=== PATIENT | female | born 1930 | race Caucasian/White ===

== ENCOUNTER 2017-06-23 19:41 | Emergency (ER) | payer OTHER ==
[2017-06-23 20:20] VITALS: TEMP 97.7; BMI 37.5
[2017-06-23] MEDS ORDERED: ONDANSETRON 4 MG/2 ML VIAL IVPUSH ONE ×2 (20:23→22:24)
[2017-06-23] MEDS ORDERED: SODIUM CHLORIDE 0.9% 1000 ML INFUS.BAG IV ONE (20:23)
[2017-06-23] MEDS ORDERED: FAMOTIDINE IV 20 MG/12 ML VIAL IVPUSH ONE (20:25)
[2017-06-23] MEDS ORDERED: ONDANSETRON 4 MG/2 ML VIAL ONE (20:29)
[2017-06-23] MEDS ORDERED: FAMOTIDINE 20 MG/50 ML IVPB 20 MG/50 ML MG IVPB ONE (20:29)
[2017-06-23 21:07] LABS: BASO # 0.1 # (0.1-1); BASO % 0.3 % (0-2.0); EOS # 0.1 # (0-4.5); EOS % 0.5 % (0-4.5); LYMPH # 0.8 (8-40); MCH 30.8 pg (25.7-33.7); MCHC 32.5 g/dl (32.0-36.0); MEAN PLT VOLUME 7.9 fl (7.5-11.1); MONO # 0.8 # (3.8-10.2); NEUT # 15.9 # (42.8-82.8); NEUT % 90.1 % (42.8-82.8); PLATELET COUNT 294 K/MM3 (134-434); RDW 15.4 % (11.6-15.6); WHITE BLOOD COUNT 17.7 K/mm3 (4.0-10.0)
[2017-06-23] MEDS ORDERED: METOCLOPRAMIDE HCL INJECTION 10 MG/2 ML VIAL ONE (21:24)
[2017-06-23 21:26] LABS: URINE APPEARANCE SLCLOUDY; URINE BILIRUBIN NEGATIVE (NEGATIVE); URINE BLOOD NEGATIVE (NEGATIVE); URINE COLOR YELLOW; URINE GLUCOSE (UA) NEGATIVE (NEGATIVE); URINE KETONE 1+ (NEGATIVE); URINE LEUK ESTERASE NEGATIVE (NEGATIVE); URINE NITRITE NEGATIVE (NEGATIVE); URINE UROBILINOGEN NEGATIVE mg/dL (0.2-1.0)
[2017-06-23 21:35] LABS: URINE PROTEIN 1+ (NEGATIVE)
[2017-06-23 21:36] LABS: URINE MUCUS RARE; URINE RBC 1 /hpf (0-3); URINE WBC 1 /hpf (3-5)
[2017-06-23 21:43] LABS: ALBUMIN 3.5 g/dl (3.4-5.0); ANION GAP 9 (8-16); CALCIUM 8.4 mg/dL (8.5-10.1); CO2 28 mmol/L (21-32); GLUCOSE,RANDOM 172 mg/dL (74-106); SGOT/AST 25 U/L (15-37); SGPT/ALT 23 U/L (12-78)
[2017-06-23 21:47] LABS: ALK PHOS 55 U/L (45-117); BILIRUBIN,TOTAL 0.7 mg/dL (0.2-1.0); CPK 47 IU/L (26-192); TOT PROT 7.4 g/dl (6.4-8.2); TROPONIN I 0.02 ng/ml (0.00-0.05)
[2017-06-23 21:48] LABS: TROPONIN I 0.02 ng/ml (0.00-0.05)
[2017-06-23] MEDS ORDERED: METOCLOPRAMIDE HCL INJECTION 10 MG/2 ML VIAL IVPUSH ONE (22:24)
--- NOTE | 2017-06-23 22:41 | PDOC ---
History of Present Illness - General Chief Complaint: Nausea/Vomiting Stated Complaint: Nausea/Vomiting Time Seen by Provider: 06/23/17 19:57 History Source: Patient Exam Limitations: No Limitations - History of Present Illness Initial Comments: 06/23/17 22:35 Patient is an 87-year-old female with history of lymphoma, HTN, HLD, A. fib on Coumadin, hysterectomy, here with complaints of nausea which started about 3 PM after eating. States she has had several episodes of vomiting all and continues to have nausea in the emergency room. States everybody in the household ate the same thing and no one else is sick. She denies chest pain, headache, dizziness, diarrhea. She states she's had issues with nausea in the past had an endoscopy for it with gastroenterologists which was negative. PMD: Dr. Lopez PMHX: as above PSocHx: neg etoh, drug, cig ALL: NKDA GENERAL/CONSTITUTIONAL: [No fever or chills. No weakness. No weight change.] HEAD, EYES, EARS, NOSE AND THROAT: [No change in vision. No ear pain or discharge. No sore throat.] CARDIOVASCULAR: [No chest pain (+) shortness of breath chronic.] RESPIRATORY: [No cough, wheezing, or hemoptysis.] GASTROINTESTINAL: [No nausea, vomiting, diarrhea or constipation. No rectal bleeding.] GENITOURINARY: [No dysuria, frequency, or change in urination.] MUSCULOSKELETAL: [No joint or muscle swelling or pain. No neck or back pain.] SKIN AND BREASTS: [No rash or easy bruising.] NEUROLOGIC: [No headache, vertigo, loss of consciousness, or loss of sensation.] PSYCHIATRIC: [No depression or anxiety.] ENDOCRINE: [No increased thirst. No abnormal weight change.] HEMATOLOGIC/LYMPHATIC: [No anemia, easy bleeding, or history of blood clots.] ALLERGIC/IMMUNOLOGIC: [No hives or skin allergy. No latex allergy.] GENERAL: [The patient is awake, alert, and fully oriented, in mild acute distress.] HEAD: [Normal with no signs of trauma.] EYES: [Pupils equal, round and reactive to light, extraocular movements intact, sclera anicteric, conjunctiva clear.] ENT: [Ears normal, nares patent, oropharynx clear without exudates. Moist mucous membranes.] NECK: [Normal range of motion, supple without lymphadenopathy, JVD, or masses.] LUNGS: [Breath sounds equal, clear to auscultation bilaterally. No wheezes, and no crackles.] HEART: [irreg rate and rhythm, S1 and S2 without murmur, rub.] ABDOMEN: [Soft, nontender, normoactive bowel sounds. No guarding, no rebound. No masses.] EXTREMITIES: [Normal range of motion, no edema. No clubbing or cyanosis. No cords, erythema, or tenderness.] NEUROLOGICAL: [Cranial nerves II through XII grossly intact. Normal speech, normal gait.] PSYCH: [Normal mood, normal affect.] SKIN: [Warm, Dry, normal turgor, no rashes or lesions noted.] Past History - Past Medical History Allergies/Adverse Reactions: Allergies Allergy/AdvReac Type Severity Reaction Status Date / Time No Known Allergies Allergy Verified 04/26/15 17:54 Home Medications: Ambulatory Orders Atorvastatin Ca [Lipitor] 10 mg PO HS 08/01/14 Diltiazem Cd [Cardizem Cd -] 240 mg PO DAILY 08/01/14 Escitalopram Oxalate [Lexapro -] 20 mg PO DAILY 08/01/14 Tamsulosin HCl [Flomax -] 0.4 mg PO DAILY 08/01/14 Furosemide [Lasix -] 20 mg PO DAILY #30 tablet 04/28/15 Rivaroxaban [Xarelto -] 20 mg PO DAILY #30 tablet 04/28/15 Albuterol Sulfate [Proair Respiclick] 90 mcg IH PRN 01/23/16 Digoxin [Lanoxin -] 0.125 mg PO DAILY 01/23/16 Esomeprazole Magnesium [Nexium 24Hr] 40 mg PO DAILY 01/23/16 Saxagliptin HCl [Onglyza] 5 mg PO DAILY 01/23/16 Tiotropium [place] [Spiriva Respimat] 2.5 gm IH DAILY 01/23/16 Tramadol HCl [Ultram -] 50 mg PO DAILY 01/23/16 Ondansetron HCl [Zofran] 4 mg PO QID #10 tablet 06/24/17 Anemia: Yes Asthma: Yes Cancer: Yes (LYMPHOMA) Cardiac Disorders: Yes (ATRIAL FIBRILLATION) CVA: No COPD: Yes CHF: No Dementia: No Diabetes: No GI Disorders: Yes (COLONOSCOPY) Disorders: No HTN: Yes Hypercholesterolemia: Yes Liver Disease: No Seizures: No Thyroid Disease: No - Surgical History Abdominal Surgery: No Appendectomy: No Cardiac Surgery: No Cholecystectomy: No Lung Surgery: No Neurologic Surgery: No Orthopedic Surgery: Yes (LEFT KNEE REPLACEMENT) - Suicide/Smoking/Psychosocial Hx Smoking History: Never smoked Have you smoked in the past 12 months: No If you are a former smoker, when did you quit?: 9 years ago Hx Alcohol Use: No Drug/Substance Use Hx: No Substance Use Type: None Hx Substance Use Treatment: No *Physical Exam - Vital Signs Last Vital Signs Temp Pulse Resp BP Pulse Ox 97.7 F 97 H 20 127/69 94 L 06/23/17 20:07 06/23/17 20:07 06/23/17 20:07 06/23/17 20:07 06/23/17 20:07 ED Treatment Course - LABORATORY CBC & Chemistry Diagram: 06/23/17 20:55 06/23/17 20:55 - ADDITIONAL ORDERS Additional order review: Laboratory Results 06/23/17 06/23/17 06/23/17 21:18 20:55 20:55 Sodium 139 Potassium 4.0 Chloride 102 Carbon Dioxide 28 Anion Gap 9 BUN 16 Creatinine 1.0 D Creat Clearance w eGFR 52.57 Random Glucose 172 H D Calcium 8.4 L Total Bilirubin 0.7 D AST 25 D ALT 23 Alkaline Phosphatase 55 D Creatine Kinase 45 47 Troponin I 0.02 0.02 Total Protein 7.4 D Albumin 3.5 Urine Color Yellow Urine Appearance Slcloudy Urine pH 5.0 Ur Specific [place] 1.021 Urine Protein 1+ H Urine Glucose (UA) Negative Urine Ketones 1+ H Urine Blood Negative Urine Nitrite Negative Urine Bilirubin Negative Urine Urobilinogen Negative Urine WBC (Auto) 1 Urine RBC (Auto) 1 Ur Epithelial Cells Rare Urine Mucus Rare 06/23/17 20:55 RBC 4.38 D MCV 95.0 MCHC 32.5 RDW 15.4 MPV 7.9 Neutrophils % 90.1 H D Lymphocytes % 4.8 L D Monocytes % 4.3 Eosinophils % 0.5 Basophils % 0.3 - Medications Given in the ED: ED Medications Discontinued Medications Generic Name Dose Route Start Last Admin Trade Name Freq PRN Reason Stop Dose Admin Famotidine 20 mg in 12 mls @ 144 mls/hr 06/23/17 20:25 06/23/17 20:35 Pepcid 20 Mg/12 Ml Push IVPUSH 06/23/17 20:29 144 mls/hr ONCE ONE Administration Metoclopramide HCl 10 mg 06/23/17 22:24 06/23/17 21:35 Reglan Injection - IVPUSH 06/23/17 22:25 10 mg ONCE ONE Administration Ondansetron HCl 4 mg 06/23/17 20:23 06/23/17 20:35 Zofran Injection IVPUSH 06/23/17 20:24 4 mg ONCE ONE Administration Ondansetron HCl 4 mg 06/23/17 22:24 06/23/17 21:05 Zofran Injection IVPUSH 06/23/17 22:25 4 mg ONCE ONE Administration Sodium Chloride 500 ml 06/23/17 20:23 06/23/17 20:26 Normal Saline - IV 06/23/17 20:24 500 ml ONCE ONE Administration Medical Decision Making - Medical Decision Making 06/23/17 23:12 Patient is an 87-year-old female with history of lymphoma, HTN, HLD, A. fib on Coumadin, hysterectomy, here with complaints of nausea which started about 3 PM after eating consistent with enteritis. will given ivf, antinausea, ekg, trop reassess Patient still having nausea, will give zofran 4mg IV still having nausea, will given zofran 4mg IV. EKG A-Fib with junctional pacemaker, RAD, T wave inversion II, III, aVF, V4-V6 review of the records show patient's EKG is unchanged from 07/2014, Nuclear stress test neg and ECHO test normal in 07/2014 2300 Paitent is feeling better and is wanting to go home will repeat the Trop and if neg can be discharged PO challenge Patient c/o on nausea, given zofran. She is insisting on going home. Patient is tolerating po. Repeat trop neg I discussed the physical exam findings, ancillary test results and final diagnoses with the patient. I answered all of the patient's questions. The patient was satisfied with the care received and felt comfortable with the discharge plan and treatment plan. The Patient agrees to follow up with the primary care physician within 24-72 hours. *DC/Admit/Observation/Transfer Diagnosis at time of Disposition: Nausea and vomiting Qualifiers: Vomiting type: unspecified Vomiting Intractability: non-intractable Qualified Code(s): R11.2 - Nausea with vomiting, unspecified - Discharge Dispostion Disposition: HOME Condition at time of disposition: Stable - Prescriptions Prescriptions: Ondansetron HCl [Zofran] 4 mg PO QID #10 tablet - Referrals Referrals: Ila Garcia MD [Primary Care Provider] - - Patient Instructions Printed Discharge Instructions: DI for Vomiting -- Adult Additional Instructions: Your Discharge Instructions: You must call primary care physician within 24 hours to arrange follow-up. Return to the Emergency Department with any new, persistent or worsening symptoms, for fever, chills, SOB, dizziness or any other concerning changes that may occur. - Post Discharge Activity
[2017-06-24] MEDS ORDERED: ONDANSETRON 4 MG/2 ML VIAL IVPUSH ONE (00:14)
[2017-06-24] MEDS ORDERED: ONDANSETRON 4 MG/2 ML VIAL ONE (00:49)
[2017-06-24 01:41] VITALS: BP 132/70; PULSE 76
[2017-06-24 12:09] LABS: URINE LEUK ESTERASE Negative (NEGATIVE)
--- NOTE | 2017-06-24 13:10 | EKG ---
Test Reason : Blood Pressure : / mmHG Vent. Rate : 081 BPM Atrial Rate : 086 BPM P-R Int : 000 ms QRS Dur : 100 ms QT Int : 374 ms P-R-T Axes : 000 091 -86 degrees QTc Int : 434 ms ATRIAL FIBRILLATION WITH A COMPETING JUNCTIONAL PACEMAKER RIGHTWARD AXIS ABNORMAL ECG WHEN COMPARED WITH ECG OF 27-APR-2015 10:59, ST NOW DEPRESSED IN INFERIOR LEADS INVERTED T WAVES HAVE REPLACED NONSPECIFIC T WAVE ABNORMALITY IN ANTEROLATERAL LEADS Confirmed by MD Salvador Daniel ([id number]) on 06/24/2017 1:10:12 PM Referred By: Confirmed By:Pako Salvador MD
== END 2017-06-24 01:10 | disposition home or self-care (01) ==
LOC: JER 19:41
PROC: 3E0337Z Introduction of Electrolytic and Water Balance Substance into Peripheral Vein, Percutaneous Approach (ICD-10-PCS; principal; 2017-06-23)
DX: R11.2 Nausea with vomiting, unspecified (principal); I10 Essential (primary) hypertension; I48.91 Unspecified atrial fibrillation; Z79.01 Long term (current) use of anticoagulants; C85.90 Non-Hodgkin lymphoma, unspecified, unspecified site; J45.909 Unspecified asthma, uncomplicated; E78.00 Pure hypercholesterolemia, unspecified; D64.9 Anemia, unspecified
CPT/HCPCS: 36415; 80053; 81003; 81015; 82550; 84484; 85025; 93005; 93010; 99283-25

== ENCOUNTER 2018-02-10 15:11 | Inpatient (IN) | payer OTHER ==
[2018-02-10] MEDS ORDERED: ONDANSETRON 4 MG/2 ML VIAL IVPB ONE (15:56)
[2018-02-10] MEDS ORDERED: ACETAMINOPHEN 1000 MG/100 ML VIAL (NON FORMULARY) IVPB ONE (15:56)
[2018-02-10] MEDS ORDERED: SODIUM CHLORIDE 1,000 ML IV STA (15:56)
[2018-02-10] MEDS ORDERED: ACETAMINOPHEN INJECTION 100 ML IVPB ONE (16:01)
[2018-02-10] MEDS ORDERED: ONDANSETRON 4 MG/2 ML VIAL ONE (16:01)
--- NOTE | 2018-02-10 16:29 | CON.CARD ---
Consult Consult Specialty:: Cardiology Referred by:: Dr Garcia Reason for Consultation:: abnormal ECG - History of Present Illness Chief Complaint: nausea and vomiting History of Present Illness: She is an 86 yr old woman with a history of lymphoma,htn, chol , chronic afib on xarelto who came to the ER for weakness, fever, chills nausea and vomiting x 3 days. Has not been able to hold down food or water. No medications. Found with afib with RVR and ST changes. No chest pain, sob, orthopnea, pnd or edema. Baseline exercise tolerance is poor. - History Source History Provided By: Patient, Medical Record - Past Medical History Cardio/Vascular: Yes: AFIB, HTN, Hyperlipdemia - Past Surgical History Past Surgical History: Yes: Hysterectomy - Alcohol/Substance Use Hx Alcohol Use: No - Smoking History Smoking history: Never smoked Have you smoked in the past 12 months: No If you are a former smoker, when did you quit?: 9 years ago Home Medications - Allergies Allergies/Adverse Reactions: Allergies Allergy/AdvReac Type Severity Reaction Status Date / Time No Known Allergies Allergy Verified 04/26/15 17:54 - Home Medications Home Medications: Ambulatory Orders Atorvastatin Ca [Lipitor] 10 mg PO HS 08/01/14 Diltiazem Cd [Cardizem Cd -] 240 mg PO DAILY 08/01/14 Escitalopram Oxalate [Lexapro -] 20 mg PO DAILY 08/01/14 Tamsulosin HCl [Flomax -] 0.4 mg PO DAILY 08/01/14 Furosemide [Lasix -] 20 mg PO DAILY #30 tablet 04/28/15 Rivaroxaban [Xarelto -] 20 mg PO DAILY #30 tablet 04/28/15 Albuterol Sulfate [Proair Respiclick] 90 mcg IH PRN 01/23/16 Digoxin [Lanoxin -] 0.125 mg PO DAILY 01/23/16 Esomeprazole Magnesium [Nexium 24Hr] 40 mg PO DAILY 01/23/16 Saxagliptin HCl [Onglyza] 5 mg PO DAILY 01/23/16 Tiotropium [place] [Spiriva Respimat] 2.5 gm IH DAILY 01/23/16 traMADol HCL [Ultram -] 50 mg PO DAILY 01/23/16 Ondansetron HCl [Zofran] 4 mg PO QID #10 tablet 12/26/17 Vital Signs: Vital Signs Temperature 101.1 F H 02/10/18 15:12 Pulse Rate 118 H 02/10/18 15:12 Respiratory Rate 20 02/10/18 15:12 Blood Pressure 156/60 02/10/18 15:12 O2 Sat by Pulse Oximetry (%) 93 L 02/10/18 15:12 Constitutional: Yes: No Distress Eyes: Yes: Conjunctiva Clear, EOM Intact HENT: Yes: Normocephalic Neck: Yes: Supple, Trachea Midline Respiratory: Yes: CTA Bilaterally Gastrointestinal: Yes: Normal Bowel Sounds, Soft, Abdomen, Obese Cardiovascular: Yes: Tachycardia, Pulse Irregular JVD: No Carotid Bruit: No PMI: Non-Displaced Heart Sounds: Yes: S1, S2 Extremities: Yes: WNL Edema: No Peripheral Pulses WNL: Yes Imaging - Results EKG: Report Reviewed (afib with rvr ST dep inferior and anterolateral no change from may 2017. [address] elev aVL and V2.) Problem List - Problems (1) Atrial fibrillation Assessment/Plan: She is an 86 yr old woman with a history of lymphoma, htn, chol , chronic afib on xarelto who came to the ER for weakness, fever, chills nausea and vomiting x 3 days. Has not been able to hold down food or water. No medications. Found with afib with RVR and ST changes. No chest pain, sob, orthopnea, pnd or edema. Baseline exercise tolerance is poor. I believe that her ST changes are rate related. She has not taken her medications in 3 days. Check labs, dig level and troponin. Echo to assess LV function. Restart PO dig and dilt when able to take PO. Can give Dig IV, also can give Propranolol 2 mg iv q6h for rate control. Can also start full dose bid lovenox for AC while NPO and restart Xarelto when able to take PO. Fever workup per ER and medicine. Code(s): I48.91 - UNSPECIFIED ATRIAL FIBRILLATION Qualifiers: Atrial fibrillation type: chronic Qualified Code(s): I48.2 - Chronic atrial fibrillation
--- NOTE | 2018-02-10 16:30 | PDOC ---
History of Present Illness - General Chief Complaint: Nausea/Vomiting Stated Complaint: Weakness Time Seen by Provider: 02/10/18 15:53 History Source: Patient Exam Limitations: No Limitations - History of Present Illness Initial Comments: 02/10/18 16:30 86F with a history of lymphoma, htn, chol , chronic afib on xarelto who came to the ER for weakness, fever, chills nausea and vomiting x 3 days. Unable to eat or drink without vomiting. Hasn't tried to take any medication. No chest pain, sob, orthopnea, pnd or edema. Baseline exercise tolerance is poor. Past History - Past Medical History Allergies/Adverse Reactions: Allergies Allergy/AdvReac Type Severity Reaction Status Date / Time No Known Allergies Allergy Verified 04/26/15 17:54 Home Medications: Ambulatory Orders Unobtainable 02/10/18 Anemia: Yes Asthma: Yes Cancer: Yes (LYMPHOMA) Cardiac Disorders: Yes (ATRIAL FIBRILLATION) CVA: No COPD: Yes CHF: No DVT: No Dementia: No Diabetes: No GI Disorders: Yes (COLONOSCOPY) Disorders: No HTN: Yes Hypercholesterolemia: Yes Liver Disease: No Seizures: No Thyroid Disease: No - Surgical History Abdominal Surgery: No Appendectomy: No Cardiac Surgery: No Cholecystectomy: No Lung Surgery: No Neurologic Surgery: No Orthopedic Surgery: Yes (LEFT KNEE REPLACEMENT) - Immunization History Immunization Up to Date: No - Suicide/Smoking/Psychosocial Hx Smoking History: Never smoked Have you smoked in the past 12 months: No If you are a former smoker, when did you quit?: 9 years ago Information on smoking cessation initiated: No Hx Alcohol Use: No Drug/Substance Use Hx: No Substance Use Type: None Hx Substance Use Treatment: No *Physical Exam - Vital Signs Last Vital Signs Temp Pulse Resp BP Pulse Ox 101.1 F H 118 H 20 156/60 93 L 02/10/18 15:12 02/10/18 15:12 02/10/18 15:12 02/10/18 15:12 02/10/18 15:12 ED Treatment Course - LABORATORY CBC & Chemistry Diagram: 02/10/18 16:00 02/10/18 16:00 - Medications Given in the ED: ED Medications Discontinued Medications Generic Name Dose Route Start Last Admin Trade Name Freq PRN Reason Stop Dose Admin Acetaminophen 1,000 mg 02/10/18 15:56 08/14/18 16:16 Ofirmev Injection - IVPB 02/10/18 15:57 1,000 mg ONCE ONE Administration Medical Decision Making - Medical Decision Making 02/10/18 16:35 EKG: Atrial fibrillation with rapid ventricular response. Lateral infarct, possibly acute. Marked ST abnormality, possible inferior subendocardial injury. ACUTE ME/STEMI. Dr. Presley consulted. Possibly ischemic demand or rate related ST changes. Will investigate fever/sepsis 02/10/18 16:45 02/10/18 18:08 New EKG at 18:06: Atrial fibrillation with rapid ventricular response, rightward axis. ST elevation, consider lateral injury or acute infarct. ACUTE ME /STEMI 02/10/18 19:35 Pt given 1L NS, tylenol, propranolol 2mg IV HR improved to 90s Repeat EKG shows improvement in ST changes Labs notable for trop 5.9 Pt given lovenox and aspirin 02/10/18 19:39 Will admit patient to inpatient . PAtient signed out to Dr. Mcfarland *DC/Admit/Observation/Transfer Diagnosis at time of Disposition: Sepsis Atrial fibrillation Qualifiers: Atrial fibrillation type: chronic Qualified Code(s): I48.2 - Chronic atrial fibrillation - Discharge Dispostion Decision to Admit order: Yes - Referrals Referrals: Ila Garcia MD [Primary Care Provider] - - Patient Instructions - Post Discharge Activity
[2018-02-10 16:46] LABS: BASO % 0.2 % (0-2.0); HEMATOCRIT 49.2 % (32.4-45.2); HEMOGLOBIN 16.2 GM/dL (10.7-15.3); LYMPH % 8.7 % (8-40); MCH 31.3 pg (25.7-33.7); MEAN CELL VOLUME 95.1 fl (80-96); MEAN PLT VOLUME 8.2 fl (7.5-11.1); MONO % 4.6 % (3.8-10.2); NEUT % 86.5 % (42.8-82.8); PLATELET COUNT 364 K/MM3 (134-434); RBC 5.18 M/mm3 (3.60-5.2); RDW 14.5 % (11.6-15.6); WHITE BLOOD COUNT 14.6 K/mm3 (4.0-10.0)
[2018-02-10 17:05] LABS: INR 1.16 (0.83-1.09); PROTHROMBIN TIME (PATIENT) 13.1 SEC (9.7-13.0)
[2018-02-10 17:08] LABS: ACTIVATED PTT 27.4 SECONDS (25.2-36.5)
[2018-02-10 17:20] LABS: ANION GAP 15 (8-16); BILIRUBIN,TOTAL 1.1 mg/dL (0.2-1.0); BLOOD UREA NITROGEN 22 mg/dL (7-18); CALCIUM 9.9 mg/dL (8.5-10.1); CHLORIDE 93 mmol/L (98-107); CO2 27 mmol/L (21-32); CREATININE 1.2 mg/dL (0.55-1.02); GLUCOSE,RANDOM 197 mg/dL (74-106); LIPASE 33 U/L (73-393); POTASSIUM 4.1 mmol/L (3.5-5.1); SGOT/AST 75 U/L (15-37); SGPT/ALT 42 U/L (12-78); SODIUM 135 mmol/L (136-145); TOT PROT 8.5 g/dl (6.4-8.2)
[2018-02-10 17:21] LABS: ALK PHOS 54 U/L (45-117)
[2018-02-10] MEDS ORDERED: ASPIRIN 325 MG TABLET PO ONE (17:53)
[2018-02-10] MEDS ORDERED: ENOXAPARIN NA (PORCINE) 80 MG/0.8 ML DISP.SYRIN SQ ONE ×2 (17:53→18:30)
[2018-02-10] MEDS ORDERED: ASPIRIN 325 MG TABLET ONE (18:30)
--- NOTE | 2018-02-10 18:37 | PDOC ---
Attending Attestation - Resident Resident Name: ZoraVignesh - ED Attending Attestation I have performed the following: I have examined & evaluated the patient, The case was reviewed & discussed with the resident, I agree w/resident's findings & plan, Exceptions are as noted - HPI HPI: 02/10/18 18:33 87F with h/o lymphoma, HTN, HLD, afib on xarelto presenting with N+V x 3 days. Pt states that she has been dry heaving. Denies abdominal pain. Denies CP/SOB. Denies F/C. - Physicial Exam PE: 02/10/18 18:35 "GENERAL: Awake, alert, and fully oriented, in no acute distress. HEAD: No signs of trauma EYES: PERRLA, EOMI, sclera anicteric, conjunctiva clear ENT: Auricles normal inspection, hearing grossly normal, nares patent, oropharynx clear without exudates. Moist mucosa NECK: Nontender, no stepoffs, Normal ROM, supple, no lymphadenopathy, JVD, or masses LUNGS: Breath sounds equal, clear to auscultation bilaterally. No wheezes, and no crackles HEART: irregularly irregular, normal S1 and S2, no murmurs, rubs or gallops ABDOMEN: Soft, nontender, normoactive bowel sounds. No guarding, no rebound. No masses EXTREMITIES: Normal range of motion, no edema. No clubbing or cyanosis. No cords, erythema, or tenderness NEUROLOGICAL: Cranial nerves II through XII intact. 5/5 strength and sensation in all extremities, Normal speech, normal gait, normal cerebellar function SKIN: Warm, Dry, normal turgor, no rashes or lesions noted." - Medical Decision Making 02/10/18 18:35 87 F with N+V x 3 days. EKG found to be in afib with RVR with ST changes ( elevation in aVL, depressions in inferior lead). Concerning for acute ND. - Dr. Presley in ED to evaluate pt, does not recommend transfer for cath at this time. Pt's ST changes likely rate-related in the context of possible sepsis - Will resuscitate with IVF, tylenol, and abx, rate control as needed. Recheck EKG - Labs, cultures - CXR, UA 02/10/18 19:10 Pt given 1L NS, tylenol, propranolol 2mg IV HR improved to 90s Repeat EKG shows improvement in ST changes Labs notable for trop 5.9 Pt given lovenox and aspirin
[2018-02-10 19:00] LABS: URINE APPEARANCE CLOUDY; URINE BILIRUBIN NEGATIVE (<2.0 mg/dL); URINE COLOR AMBER; URINE GLUCOSE (UA) 1+ (NEGATIVE); URINE KETONE TRACE (NEGATIVE); URINE LEUK ESTERASE NEGATIVE (NEGATIVE); URINE NITRITE NEGATIVE (NEGATIVE); URINE UROBILINOGEN NEGATIVE mg/dL (0.2-1.0)
[2018-02-10] MEDS ORDERED: VANCOMYCIN 1,000 MG in DEXTROSE 5%-WATER - 250 ML IVPB ONE (19:09)
[2018-02-10] MEDS ORDERED: PIPERACILLIN/TAZOB 4.5 GM 4.5 GM/100 ML BAG IVPB ONE ×3 (19:10→19:41)
[2018-02-10 19:18] LABS: URINE PROTEIN 3+ (NEGATIVE)
[2018-02-10 19:22] LABS: EPI CELLS RARE /HPF (FEW); URINE BACTERIA FEW /hpf (NONE SEEN); URINE MUCUS MODERATE
[2018-02-10] MEDS ORDERED: VANCOMYCIN 1 GRAM (PRE-DOCKED) 1,000 MG/250 ML BAG IVPB ONE (19:39)
--- NOTE | 2018-02-10 20:16 | HP ---
Admitting History and Physical - Primary Care Physician PCP: Ila Garcia - Admission Chief Complaint: Weakness, Fever, Chills, Nausea, Vomiting History of Present Illness: This is a 87 y/o woman with a past medical history of Lymphoma in remission (s/ p chemo-completed), HTN, HLD, Chronic Afib (on Xarelto). Who presents to the ED with generalized weakness, fever, chills, nausea, and vomiting x 3 days. Patient reports not being able to take her medications since being ill. Patient denies dizziness, GUALLPA, SOB, CP, palpitations, AP, diarrhea, dysuria. History Source: Patient Limitations to Obtaining History: No Limitations - Past Medical History Cardiovascular: Yes: AFIB, HTN, Hyperlipdemia Heme/Onc: Yes: Other (lymphoma) - Past Surgical History Past Surgical History: Yes: Hysterectomy - Smoking History Smoking history: Former smoker Have you smoked in the past 12 months: No If you are a former smoker, when did you quit?: 9 years ago - Alcohol/Substance Use Hx Alcohol Use: No History of Substance Use: reports: None - Social History Usual Living Arrangement: Yes: Alone ADL: Independent History of Recent Travel: No Home Medications - Allergies Allergies/Adverse Reactions: Allergies Allergy/AdvReac Type Severity Reaction Status Date / Time No Known Allergies Allergy Verified 04/26/15 17:54 - Home Medications Home Medications: Ambulatory Orders Unobtainable 02/10/18 Home Medications (free text): Home Medications: Ambulatory Orders. Atorvastatin Ca [Lipitor] 10 mg PO HS 08/01/14. Diltiazem Cd [Cardizem Cd -] 240 mg PO DAILY 08/01/14. Escitalopram Oxalate [Lexapro -] 20 mg PO DAILY 08/01. Tamsulosin HCl [Flomax -] 0.4 mg PO DAILY 08/01/14. Furosemide [Lasix -] 20 mg PO DAILY #30 tablet 04/28/15. Rivaroxaban [Xarelto -] 20 mg PO DAILY #30 tablet 04/28/15. Albuterol Sulfate [Proair Respiclick] 90 mcg IH PRN 01/23/16. Digoxin [Lanoxin -] 0.125 mg PO DAILY 01/23/16. Esomeprazole Magnesium [ Nexium 24Hr] 40 mg PO DAILY 01/23/16. Saxagliptin HCl [Onglyza] 5 mg PO DAILY 01/23/16. Tiotropium [place] [Spiriva Respimat] 2.5 gm IH DAILY 01/23/16. traMADol HCL [Ultram -] 50 mg PO DAILY 01/23/16. Ondansetron HCl [Zofran] 4 mg PO QID #10 tablet 06/24/17 Family Disease History - Family Disease History Family Disease History: CA: Mother (unknown type) Review of Systems - Review of Systems Constitutional: reports: Chills, Fever, Loss of Appetite, Weakness Eyes: reports: No Symptoms HENT: reports: No Symptoms Neck: reports: No Symptoms Cardiovascular: reports: No Symptoms Respiratory: reports: No Symptoms Gastrointestinal: reports: Constipation, Nausea, Vomiting Genitourinary: reports: No Symptoms Breasts: reports: No Symptoms Reported Musculoskeletal: reports: No Symptoms Integumentary: reports: No Symptoms Neurological: reports: No Symptoms Endocrine: reports: No Symptoms Hematology/Lymphatic: reports: No Symptoms Psychiatric: reports: No Symptoms Physical Examination Vital Signs: Vital Signs Temperature 101.1 F H 02/10/18 15:12 Pulse Rate 87 02/10/18 18:25 Respiratory Rate 22 02/10/18 18:25 Blood Pressure 129/102 02/10/18 18:25 O2 Sat by Pulse Oximetry (%) 100 02/10/18 18:25 Constitutional: Yes: No Distress, Calm, Obese Eyes: Yes: WNL, Conjunctiva Clear, EOM Intact, PERRL HENT: Yes: WNL, Atraumatic, Normocephalic Neck: Yes: WNL, Supple, Trachea Midline Cardiovascular: Yes: Pulse Irregular, S1, S2 Respiratory: Yes: Diminished (R- base) Gastrointestinal: Yes: Abdomen, Obese, Hyperactive Bowel Sounds ...Rectal Exam: Yes: WNL Renal/: Yes: WNL Breast(s): Yes: WNL Musculoskeletal: Yes: Back Pain Extremities: Yes: WNL Peripheral Pulses WNL: Yes Neurological: Yes: WNL, Alert, Oriented, Cran Nerves II-XII Intact ...Motor Strength: WNL Psychiatric: Yes: WNL, Alert, Oriented Labs: CBC, BMP 02/10/18 16:00 02/10/18 16:00 Laboratory Results - last 24 hr 02/10/18 02/10/18 02/10/18 16:00 16:00 16:00 WBC 14.6 H RBC 5.18 Hgb 16.2 H Hct 49.2 H D MCV 95.1 MCH 31.3 MCHC 33.0 RDW 14.5 Plt Count 364 D MPV 8.2 Absolute Neuts (auto) 12.6 Neutrophils % 86.5 H Lymphocytes % 8.7 D Monocytes % 4.6 Eosinophils % 0.0 D Basophils % 0.2 Nucleated RBC % 0 PT with INR 13.10 H INR 1.16 H PTT (Actin FS) 27.4 Sodium 135 L Potassium 4.1 Chloride 93 L Carbon Dioxide 27 Anion Gap 15 BUN 22 H Creatinine 1.2 H Creat Clearance w eGFR 42.60 Random Glucose 197 H Hemoglobin A1c % Lactic Acid Calcium 9.9 Total Bilirubin 1.1 H AST 75 H ALT 42 Alkaline Phosphatase 54 Creatine Kinase Creatine Kinase Index CK-MB (CK-2) Troponin I Total Protein 8.5 H Albumin 4.0 Lipase 33 L Urine Color Urine Appearance Urine pH Ur Specific [place] Urine Protein Urine Glucose (UA) Urine Ketones Urine Blood Urine Nitrite Urine Bilirubin Urine Urobilinogen Ur Leukocyte Esterase Urine WBC (Auto) Urine RBC (Auto) Ur Epithelial Cells Urine Bacteria Urine Mucus Digoxin 02/10/18 02/10/18 02/10/18 16:00 16:21 18:42 WBC RBC Hgb Hct MCV MCH MCHC RDW Plt Count MPV Absolute Neuts (auto) Neutrophils % Lymphocytes % Monocytes % Eosinophils % Basophils % Nucleated RBC % PT with INR INR PTT (Actin FS) Sodium Potassium Chloride Carbon Dioxide Anion Gap BUN Creatinine Creat Clearance w eGFR Random Glucose Hemoglobin A1c % Lactic Acid 3.6 H* Calcium Total Bilirubin AST ALT Alkaline Phosphatase Creatine Kinase 202 H Creatine Kinase Index 9.7 H* CK-MB (CK-2) 19.66 H Troponin I 5.94 H* Total Protein Albumin Lipase Urine Color Cara Urine Appearance Cloudy Urine pH 5.0 Ur Specific [place] 1.032 Urine Protein 3+ H D Urine Glucose (UA) 1+ H Urine Ketones Trace H Urine Blood 2+ H Urine Nitrite Negative Urine Bilirubin Negative Urine Urobilinogen Negative Ur Leukocyte Esterase Negative Urine WBC (Auto) 65 Urine RBC (Auto) 16 Ur Epithelial Cells Rare Urine Bacteria Few Urine Mucus Moderate Digoxin 02/10/18 02/11/18 02/11/18 19:15 01:10 01:10 WBC RBC Hgb Hct MCV MCH MCHC RDW Plt Count MPV Absolute Neuts (auto) Neutrophils % Lymphocytes % Monocytes % Eosinophils % Basophils % Nucleated RBC % PT with INR INR PTT (Actin FS) Sodium Potassium Chloride Carbon Dioxide Anion Gap BUN Creatinine Creat Clearance w eGFR Random Glucose Hemoglobin A1c % Lactic Acid 3.0 H* Calcium Total Bilirubin AST ALT Alkaline Phosphatase Creatine Kinase 222 H Creatine Kinase Index 7.9 H* CK-MB (CK-2) 17.59 H Troponin I 8.41 H* Total Protein Albumin Lipase Urine Color Urine Appearance Urine pH Ur Specific [place] Urine Protein Urine Glucose (UA) Urine Ketones Urine Blood Urine Nitrite Urine Bilirubin Urine Urobilinogen Ur Leukocyte Esterase Urine WBC (Auto) Urine RBC (Auto) Ur Epithelial Cells Urine Bacteria Urine Mucus Digoxin 0.39 L Intake & Output 02/08/18 02/09/18 02/10/18 02/11/18 23:59 23:59 23:59 23:59 Intake Total 1570 Balance 1570 Weight 90.718 kg 105.596 kg Current Medications Generic Name Dose Route Start Last Admin Trade Name Freq PRN Reason Stop Dose Admin Aspirin 81 mg 02/11/18 10:00 Asa - PO DAILY SE[facility] Enoxaparin Sodium 80 mg 02/11/18 10:00 Lovenox - SQ BID SEBAS Vancomycin HCl 1,000 mg/ 250 mls @ 166.667 mls/hr 02/11/18 10:00 Dextrose IVPB Q12H [facility] Protocol Piperacillin Sod/Tazobactam 100 mls @ 200 mls/hr 02/11/18 02:00 Sod 4.5 gm/ Dextrose IVPB Q8H-IV [facility] Protocol Ondansetron HCl 4 mg 02/10/18 20:29 Zofran Injection IVPUSH Q6H PRN NAUSEA Imaging - Results Chest X-ray: Report Reviewed, Image Reviewed EKG: Image Reviewed (Afib with RVR ST depression in V5, V6, Elevation AVL, AVF) Problem List - Problems (1) Sepsis Assessment/Plan: - Likely secondary to UTI - Blood Cultures- pending - Urine Culture-pending - qSOFA 0 - Sepsis Criteria Met: T max 101, WBC 14.6, Neutrophils 86.5, LA 3.6, BUN 22, UA + - Fluid bolus given in ED - Zosyn, Vancomcyin given in ED, will continue - Appreciate ID consult - Monitor CBC, BMP - Monitor vitals - Chest Xray- cardiomegaly, congestive changes Code(s): A41.9 - SEPSIS, UNSPECIFIED ORGANISM (2) Atrial fibrillation Assessment/Plan: - Continue cardiac monitoring - EKG- afib rvr - Likely secondary to medication vs Sepsis - Propanolol given in ED- rate control - Cardiology following - Will use propanolol or digoxin IV until patient tolerates PO, per Cardiology recommendation - [id number] Score 4 - Lovenox given in ED, will continue until pt tolerates PO - Serial Enzymes - Day team will need to verify pt's med list in am Code(s): I48.91 - UNSPECIFIED ATRIAL FIBRILLATION Qualifiers: Atrial fibrillation type: chronic Qualified Code(s): I48.2 - Chronic atrial fibrillation (3) Nausea and vomiting Assessment/Plan: - Gentle IVF - Zofran prn - Monitor lytes - Monitor vitals Code(s): R11.2 - NAUSEA WITH VOMITING, UNSPECIFIED Qualifiers: Vomiting type: unspecified Vomiting Intractability: non-intractable Qualified Code(s): R11.2 - Nausea with vomiting, unspecified (4) Diabetes Assessment/Plan: - stable - BGMs - ISS when diet resumed - HgbA1c in am - Monitor renal function Code(s): E11.9 - TYPE 2 DIABETES MELLITUS WITHOUT COMPLICATIONS Qualifiers: Diabetes mellitus type: type 2 (5) HTN (hypertension) Assessment/Plan: - Stable - Monitor BP - BB IV until pt tolerates PO - Day team to verify med list in am Code(s): I10 - ESSENTIAL (PRIMARY) HYPERTENSION Qualifiers: Hypertension type: essential hypertension Qualified Code(s): I10 - Essential (primary) hypertension (6) Hyperlipidemia Assessment/Plan: - Monitor LFTs - Day team to verify med list in am Code(s): E78.5 - HYPERLIPIDEMIA, UNSPECIFIED (7) Lymphoma Assessment/Plan: - s/p Chemo - In remission per pt - FU with Oncology as needed outpatient Code(s): C85.90 - NON-HODGKIN LYMPHOMA, UNSPECIFIED, UNSPECIFIED SITE Assessment/Plan This is a 87 y/o woman Admitted to [facility] for Sepsis secondary to UTI, Afib with RVR, Elevated Troponin for further evaluation of their emergent condition. Plan: FEN - PO fluids as tolerated - Replete lytes prn - NPO DVT ppx - OOB - SCDs - Heparin SQ (hold Xarelto, until tolerates PO) Code Status: Full Code Dispo: Requires Inpatient Care Visit type - Emergency Visit Emergency Visit: Yes ED Registration Date: 02/10/18 Care time: The patient presented to the Emergency Department on the above date and was hospitalized for further evaluation of their emergent condition. - New Patient This patient is new to me today: Yes Date on this admission: 02/10/18 - Critical Care Critical Care patient: No Hospitalist Screening - Colonoscopy Questionnaire Colonoscopy Questionnaire: Colonoscopy Questionnaire - Patient: 50 - 75 years old and never had a screening colonoscopy: No History of colon or rectal polyps, or CA: No History of IBD, Crohn's disease or UC: No History of abdominal radiation therapy as a child: No - Relative: 1 with colon or rectal CA, or polyps at age 60 or younger: No Colon or rectal CA diagnosed at age 45 or younger: No Multiple relatives with colon or rectal CA: No - Outcome: Screening Result: Negative Screen
--- NOTE | 2018-02-10 20:19 | PDOC ---
*Physical Exam - Vital Signs Last Vital Signs Temp Pulse Resp BP Pulse Ox 101.1 F H 87 22 129/102 100 02/10/18 15:12 02/10/18 18:25 02/10/18 18:25 02/10/18 18:25 02/10/18 18:25 ED Treatment Course - LABORATORY CBC & Chemistry Diagram: 02/10/18 16:00 02/10/18 16:00 - ADDITIONAL ORDERS Additional order review: Laboratory Results 02/10/18 02/10/18 02/10/18 18:42 16:21 16:00 PT with INR INR PTT (Actin FS) Sodium Potassium Chloride Carbon Dioxide Anion Gap BUN Creatinine Creat Clearance w eGFR Random Glucose Lactic Acid 3.6 H* Calcium Total Bilirubin AST ALT Alkaline Phosphatase Creatine Kinase 202 H Creatine Kinase Index 9.7 H* CK-MB (CK-2) 19.66 H Troponin I 5.94 H* Total Protein Albumin Lipase Urine Color Cara Urine Appearance Cloudy Urine pH 5.0 Ur Specific [place] 1.032 Urine Protein 3+ H D Urine Glucose (UA) 1+ H Urine Ketones Trace H Urine Blood 2+ H Urine Nitrite Negative Urine Bilirubin Negative Urine Urobilinogen Negative Ur Leukocyte Esterase Negative Urine WBC (Auto) 65 Urine RBC (Auto) 16 Ur Epithelial Cells Rare Urine Bacteria Few Urine Mucus Moderate 02/10/18 02/10/18 16:00 16:00 PT with INR 13.10 H INR 1.16 H PTT (Actin FS) 27.4 Sodium 135 L Potassium 4.1 Chloride 93 L Carbon Dioxide 27 Anion Gap 15 BUN 22 H Creatinine 1.2 H Creat Clearance w eGFR 42.60 Random Glucose 197 H Lactic Acid Calcium 9.9 Total Bilirubin 1.1 H AST 75 H ALT 42 Alkaline Phosphatase 54 Creatine Kinase Creatine Kinase Index CK-MB (CK-2) Troponin I Total Protein 8.5 H Albumin 4.0 Lipase 33 L Urine Color Urine Appearance Urine pH Ur Specific [place] Urine Protein Urine Glucose (UA) Urine Ketones Urine Blood Urine Nitrite Urine Bilirubin Urine Urobilinogen Ur Leukocyte Esterase Urine WBC (Auto) Urine RBC (Auto) Ur Epithelial Cells Urine Bacteria Urine Mucus 02/10/18 16:00 RBC 5.18 MCV 95.1 MCHC 33.0 RDW 14.5 MPV 8.2 Neutrophils % 86.5 H Lymphocytes % 8.7 D Monocytes % 4.6 Eosinophils % 0.0 D Basophils % 0.2 - Medications Given in the ED: ED Medications Discontinued Medications Generic Name Dose Route Start Last Admin Trade Name Alvinq PRN Reason Stop Dose Admin Acetaminophen 1,000 mg 02/10/18 15:56 02/10/18 16:16 Ofirmev Injection - IVPB 02/10/18 15:57 1,000 mg ONCE ONE Administration Aspirin 325 mg 02/10/18 17:53 02/10/18 18:37 Asa - PO 02/10/18 17:54 325 mg ONCE ONE Administration Enoxaparin Sodium 80 mg 02/10/18 17:53 02/10/18 18:36 Lovenox - SQ 02/10/18 17:54 80 mg ONCE ONE Administration Sodium Chloride 1,000 mls @ 1,000 mls/hr 02/10/18 15:56 02/10/18 16:16 Normal Saline - IV 02/10/18 16:55 1,000 mls/hr ASDIR STA Administration Piperacillin/Tazobactam/Dextrose 4.5 gm in 100 mls @ 200 mls/hr 02/10/18 19: 10 02/10/18 19:15 Zosyn 4.5gm Ivpb (Premix) IVPB 02/10/18 19:39 200 mls/hr ONCE ONE Administration Protocol Ondansetron HCl 4 mg 02/10/18 15:56 02/10/18 16:16 Zofran Injection IVPB 02/10/18 15:57 4 mg ONCE ONE Administration Propranolol HCl 2 mg 02/10/18 17:49 02/10/18 18:00 Inderal Injection - IVPUSH 02/10/18 17:50 2 mg ONCE ONE Administration Medical Decision Making - Medical Decision Making 87 year old signed ou tins table conditions with EKG changes and chest pain along with positive troponins. Dr. Presley was consulted and believed that the EKG changes and troponemia were related to her Afib with RVR as well as septic picture. Patient antibiosed, given fluids, and rate improved. Patient signed out to [facility]. 02/10/18 20:16 *DC/Admit/Observation/Transfer Diagnosis at time of Disposition: Sepsis Atrial fibrillation Qualifiers: Atrial fibrillation type: chronic Qualified Code(s): I48.2 - Chronic atrial fibrillation - Referrals Referrals: Ila Garcia MD [Primary Care Provider] - - Patient Instructions - Post Discharge Activity
[2018-02-11] MEDS ORDERED: PIPERACILLIN/TAZOB 4.5 GM 4.5 GM in DEXTROSE 5%-WATER 100 ML IVPB SCH (02:00)
[2018-02-11] MEDS ORDERED: PIPERACILLIN/TAZOB 4.5 GM 4.5 GM in DEXTROSE 5%-WATER 100 ML IVPB ONE (02:00)
[2018-02-11] MEDS ORDERED: DEXTROSE 5%-WATER 100 ML IVPB ONE ×2 (02:16→15:40)
[2018-02-11] MEDS ORDERED: PIPERACILLIN/TAZOBACTAM 4.5 GM VIAL IVPB ONE (02:16)
[2018-02-11 04:34] VITALS: BMI 36.4
[2018-02-11] MEDS ORDERED: FUROSEMIDE 40 MG/4 ML INJECTABLE VIAL IVPUSH ONE (05:00)
[2018-02-11 07:43] LABS: BASO % 0.3 % (0-2.0); EOS % 0.1 % (0-4.5); HEMATOCRIT 44.2 % (32.4-45.2); HEMOGLOBIN 15.1 GM/dL (10.7-15.3); LYMPH % 19.2 % (8-40); MCH 32.4 pg (25.7-33.7); MCHC 34.1 g/dl (32.0-36.0); MEAN CELL VOLUME 94.9 fl (80-96); MONO % 10.5 % (3.8-10.2); NEUT % 69.9 % (42.8-82.8); PLATELET COUNT 299 K/MM3 (134-434); RBC 4.66 M/mm3 (3.60-5.2); RDW 14.5 % (11.6-15.6); WHITE BLOOD COUNT 13.8 K/mm3 (4.0-10.0)
[2018-02-11 08:35] LABS: ANION GAP 7 (8-16); BLOOD UREA NITROGEN 32 mg/dL (7-18); CALCIUM 8.9 mg/dL (8.5-10.1); CHLORIDE 95 mmol/L (98-107); CHOLESTEROL 158 mg/dL (50-200); CO2 33 mmol/L (21-32); CREATININE 1.4 mg/dL (0.55-1.02); GLUCOSE,RANDOM 128 mg/dL (74-106); MAGNESIUM 2.1 mg/dL (1.8-2.4); POTASSIUM 4.1 mmol/L (3.5-5.1); SODIUM 135 mmol/L (136-145); TRIGLYCERIDES 181 mg/dL (35-160)
[2018-02-11 08:43] LABS: HDL CHOLESTEROL 30 mg/dL (40-60); PHOSPHOROUS 4.5 mg/dL (2.5-4.9)
[2018-02-11] MEDS: ONDANSETRON 4 MG/2 ML VIAL IVPUSH PRN (09:39)
[2018-02-11] MEDS ORDERED: VANCOMYCIN 1,000 MG in DEXTROSE 5%-WATER - 250 ML IVPB SCH (10:00)
[2018-02-11] MEDS ORDERED: ENOXAPARIN NA (PORCINE) 80 MG/0.8 ML DISP.SYRIN SQ SCH (10:00)
[2018-02-11] MEDS ORDERED: ALBUTEROL SO4 2.5/IPRATROPIUM 0.5 INH SOL 3 ML VIAL.NEB. NEB PRN (10:01)
[2018-02-11] MEDS ORDERED: NITROGLYCERIN SUBLINGUAL 1/150 0.4 MG TAB SL PRN (10:03)
[2018-02-11] MEDS ORDERED: MORPHINE SULFATE 2 MG/ML VIAL IVPUSH PRN (10:03)
[2018-02-11] MEDS ORDERED: ACETAMINOPHEN 325 MG TABLET (FP) PO PRN (10:04)
[2018-02-11] MEDS ORDERED: traMADol HCL 50 MG TABLET PO PRN (10:04)
[2018-02-11] MEDS: ASPIRIN 81 MG CHEWABLE TABLETS PO SCH (10:29)
[2018-02-11] MEDS ORDERED: FUROSEMIDE 20 MG TABLET (FP) PO SCH (12:00)
[2018-02-11] MEDS ORDERED: NITROGLYCERIN 2% OINTMENT - 1GM PACKET TD ONE (12:00)
[2018-02-11] MEDS: sitaGLIPtin PHOSPHATE 50 MG TABLET PO SCH (12:01)
[2018-02-11] MEDS: ESCITALOPRAM OXALATE 10 MG TABLET (FP) PO SCH (12:01)
--- NOTE | 2018-02-11 12:03 | PN ---
Progress Note (short form) - Note Progress Note: ID Consult dictated UTI/possible sepsis secondary to UTI ? Pneumonia Fever/ leukocytosis S/P rapid afib Lymphoma in remission Lactic acidosis Azotemia Pending sepsis workup, empiric ceftriaxone 2gm IVPB daily
--- NOTE | 2018-02-11 12:55 | PN ---
Progress Note, Physician Chief Complaint: Nausea, Vomiting Generalized weakness UTI History of Present Illness: NAD Nausea resolved after Zofran, takes Zofran at home as well Daughter Ewelina at bedside Troponins trending up Cardiology to see the pt Echo done, results pending Tele monitoring - Current Medication List Current Medications: Active Medications Acetaminophen (Tylenol -) 650 mg PO Q4H PRN PRN Reason: PAIN OR FEVER Albuterol/Ipratropium (Duoneb -) 1 amp NEB Q4H PRN PRN Reason: SHORTNESS OF BREATH Aspirin (Asa -) 81 mg PO DAILY [facility] Last Admin: 02/11/18 10:29 Dose: 81 mg Atorvastatin Calcium (Lipitor -) 20 mg PO HS [facility] Diltiazem HCl (Cardizem Cd -) 240 mg PO DAILY [facility] Last Admin: 02/11/18 12:01 Dose: 240 mg Escitalopram Oxalate (Lexapro -) 10 mg PO DAILY [facility] Last Admin: 02/11/18 12:01 Dose: 10 mg Furosemide (Lasix -) 20 mg PO DAILY [facility] Last Admin: 02/11/18 12:01 Dose: 20 mg Ceftriaxone Sodium 2 gm/ (Dextrose) 100 mls @ 200 mls/hr IVPB DAILY [facility]; Protocol Insulin Aspart (Novolog Vial Sliding Scale -) 1 vial SQ TIDAC [facility]; Protocol Morphine Sulfate (Morphine Injection -) 0.5 mg IVPUSH Q5M PRN PRN Reason: chest pain Nitroglycerin (Nitrostat -) 0.4 mg SL Q5M PRN PRN Reason: FOR CHEST PAIN Nystatin (Nystop Powder -) 1 applic TP DAILY [facility] Ondansetron HCl (Zofran Injection) 4 mg IVPUSH Q6H PRN PRN Reason: NAUSEA Last Admin: 02/11/18 09:39 Dose: 4 mg Rivaroxaban (Xarelto -) 20 mg PO DAILY@1800 [facility] Sitagliptin Phosphate (Januvia -) 50 mg PO DAILY@0700 [facility] Last Admin: 02/11/18 12:01 Dose: 50 mg Tramadol HCl (Ultram -) 50 mg PO Q6H PRN PRN Reason: PAIN LEVEL 6-10 - Objective Vital Signs: Vital Signs Temperature 98.1 F 02/11/18 09:00 Pulse Rate 86 02/11/18 09:00 Respiratory Rate 20 02/11/18 09:00 Blood Pressure 124/51 02/11/18 09:00 O2 Sat by Pulse Oximetry (%) 96 02/11/18 09:00 Constitutional: Yes: Well Nourished, No Distress, Calm Cardiovascular: Yes: Pulse Irregular, Murmur (Grade III/) Respiratory: Yes: Regular Gastrointestinal: Yes: Normal Bowel Sounds, Soft Musculoskeletal: Yes: Muscle Weakness Edema: No Peripheral Pulses WNL: Yes Neurological: Yes: Alert, Oriented Psychiatric: Yes: Alert, Oriented Labs: CBC, BMP 02/11/18 06:40 02/11/18 06:40 INR, PTT INR 1.16 (0.83-1.09) H 02/10/18 16:00 Problem List - Problems (1) UTI (urinary tract infection) Assessment/Plan: -UA shows +2 blood -UC pending -No Urinary symptoms -afebrile today -Seen by ID -On IV Rocephin 2 gm IVPB daily Code(s): N39.0 - URINARY TRACT INFECTION, SITE NOT SPECIFIED (2) Atrial fibrillation Assessment/Plan: -Chronic -Controlled at this time -Had HASMUKH upon admission -tele monitoring -Restart Xarelto -Cardiology consult Code(s): I48.91 - UNSPECIFIED ATRIAL FIBRILLATION Qualifiers: Atrial fibrillation type: chronic Qualified Code(s): I48.2 - Chronic atrial fibrillation (3) Diabetes Assessment/Plan: -A1C at 7.0 -On Januvia -BGM ACHS -Novolog sliding scale TID AC -low sodium diabetic diet Code(s): E11.9 - TYPE 2 DIABETES MELLITUS WITHOUT COMPLICATIONS Qualifiers: Diabetes mellitus type: type 2 (4) Lymphoma Assessment/Plan: -in remission Code(s): C85.90 - NON-HODGKIN LYMPHOMA, UNSPECIFIED, UNSPECIFIED SITE (5) Nausea and vomiting Assessment/Plan: -resolved -Zofran 4 mg IVP Q6H PRN -start low sodium diabetic diet Code(s): R11.2 - NAUSEA WITH VOMITING, UNSPECIFIED Qualifiers: Vomiting type: unspecified Vomiting Intractability: non-intractable Qualified Code(s): R11.2 - Nausea with vomiting, unspecified (6) Elevated troponin I level Assessment/Plan: -Earlier changes in EKG -Repeat EKG no change -Tele monitoring -Cardiology to see the patient -Echo done, results pending -trend troponin Q8H Code(s): R74.8 - ABNORMAL LEVELS OF OTHER SERUM ENZYMES Assessment/Plan See problem list Physical therapy once stable and cleared by cardiology
[2018-02-11] MEDS ORDERED: FUROSEMIDE 40 MG/4 ML INJECTABLE VIAL IVPUSH SCH (13:15)
--- NOTE | 2018-02-11 13:52 | CONS ---
DATE OF CONSULTATION: DATE OF DICTATION: 02/11/2018 HISTORY OF PRESENT ILLNESS: The patient is an 87-year-old female with a history of lymphoma in remission, being evaluated for sepsis. She was admitted with a three-day history of generalized weakness, nausea, vomiting, fever and chills. She presented to the emergency room where she was found to be in rapid atrial fibrillation, febrile to 101, with a white blood cell count elected to 14.6. Initial workup showed pyuria. She was empirically treated with vancomycin and Zosyn. At the present time, she is awake and alert. She has no focal complaints. She complains of generalized weakness. No complaints of chest pain, shortness of breath, cough or sputum production. She denies any dysuria, hematuria, urgency or frequency. The patient lives alone. She denies any ill contacts. She is a former smoker. No recent hospitalizations. No recent travel or significant pet exposure. PAST MEDICAL HISTORY: Positive for lymphoma in remission, hypertension, hyperlipidemia, atrial fibrillation. PAST SURGICAL HISTORY: Status post hysterectomy, left total knee replacement. ALLERGIES: No known allergies. MEDICATIONS: Lipitor, Cardizem, Lexapro, Flomax, Lasix, Xarelto. SOCIAL HISTORY: She lives alone. She is a . She has 7 children and 22 grandchildren. She is a former smoker, having stopped 20 years ago. No recent travel. SYSTEMS REVIEW: Neurologic: No loss of consciousness, seizure activity or focal weakness. Cardiac: As per HPI. Respiratory: Negative for cough or sputum production. Gastrointestinal: As per HPI. Genitourinary: Negative for dysuria or hematuria. LAB DATA: White count 14.6, hematocrit 49.2, platelet count 364, BUN 32, creatinine 1.4. Lactic acid 3.0. Urinalysis with 65 white cells. A chest x-ray shows some increased markings at the right base and an enlarged heart. PHYSICAL EXAMINATION: General: She is awake and alert, in no acute distress, obese, slightly dyspneic at rest on nasal cannula O2. Vital Signs: Temperature 98, T-max 101.1, blood pressure 156/88, pulse 95 and regular, respirations 20 per minute. HEENT:: Sclerae anicteric. Heart: Heart sounds S1, S2, irregular. No murmur. Lungs: Clear bilaterally. No rales, rhonchi or wheezing. Abdomen: Soft, obese, nontender. There is a healed pelvic surgical scar. No suprapubic tenderness. Extremities: Negative for edema. IMPRESSION: 1. Urinary tract infection; possible sepsis secondary to urinary tract infection. 2. Possible pneumonia. 3. Fever leukocytosis. 4. Status post rapid atrial fibrillation. 5. Lymphoma in remission. 6. Lactic acidosis. 7. Azotemia. PLAN: 1. Pending sepsis workup, empiric antibiotic coverage with ceftriaxone 2 grams IV piggyback daily. 2. A patient with a remote history of VRE (in 2009). Will obtain a rectal swab for VRE screen. Will follow. Thank you for the kind referral. ZAC GALLOWAY M.D. [id number]
--- NOTE | 2018-02-11 13:54 | EKG ---
Test Reason : Blood Pressure : / mmHG Vent. Rate : 094 BPM Atrial Rate : 115 BPM P-R Int : 000 ms QRS Dur : 096 ms QT Int : 398 ms P-R-T Axes : 000 110 057 degrees QTc Int : 497 ms ATRIAL FIBRILLATION LATERAL INFARCT (CITED ON OR BEFORE 10-FEB-2018) MARKED ST ABNORMALITY, POSSIBLE INFERIOR SUBENDOCARDIAL INJURY ACUTE NM / STEMI ABNORMAL ECG WHEN COMPARED WITH ECG OF 10-FEB-2018 15:50, SERIAL CHANGES OF LATERAL INFARCT PRESENT Confirmed by MARY BETH SHORE MD ([id number]) on 02/11/2018 1:53:53 PM Referred By: Confirmed By:MARY BETH SHORE MD
--- NOTE | 2018-02-11 14:05 | EKG ---
Test Reason : Blood Pressure : / mmHG Vent. Rate : 115 BPM Atrial Rate : 375 BPM P-R Int : 000 ms QRS Dur : 096 ms QT Int : 360 ms P-R-T Axes : 000 096 -48 degrees QTc Int : 498 ms ATRIAL FIBRILLATION WITH RAPID VENTRICULAR RESPONSE LATERAL INFARCT , POSSIBLY ACUTE MARKED ST ABNORMALITY, POSSIBLE INFERIOR SUBENDOCARDIAL INJURY ACUTE NE / STEMI ABNORMAL ECG WHEN COMPARED WITH ECG OF 23-JUN-2017 20:22, SIGNIFICANT CHANGES HAVE OCCURRED Confirmed by MARY BETH SHORE MD ([id number]) on 02/11/2018 2:04:48 PM Referred By: Confirmed By:MARY BETH SHORE MD
--- NOTE | 2018-02-11 14:16 | EKG ---
Test Reason : Blood Pressure : / mmHG Vent. Rate : 077 BPM Atrial Rate : 288 BPM P-R Int : 000 ms QRS Dur : 100 ms QT Int : 464 ms P-R-T Axes : 000 114 129 degrees QTc Int : 525 ms ATRIAL FIBRILLATION WITH A COMPETING JUNCTIONAL PACEMAKER POSSIBLE RIGHT VENTRICULAR HYPERTROPHY LATERAL INFARCT (CITED ON OR BEFORE 10-FEB-2018) PROLONGED QT ABNORMAL ECG WHEN COMPARED WITH ECG OF 10-FEB-2018 19:11, SERIAL CHANGES OF LATERAL INFARCT PRESENT Confirmed by MARY BETH SHORE MD ([id number]) on 02/11/2018 2:16:30 PM Referred By: Nallely CHAVEZ Confirmed By:MARY BETH SHORE MD
--- NOTE | 2018-02-11 14:58 | PN ---
Progress Note, Physician Chief Complaint: This is an 86 year old female with a PMH of lymphoma,htn, chol , chronic afib on xarelto who came to the ER for weakness, fever, chills nausea and vomiting x 3 days. Found with afib with RVR and ST changes and noted to have positive trops. 02/11/18 Rates ate controlled, no distress, Trops trending down. - Current Medication List Current Medications: Active Medications Acetaminophen (Tylenol -) 650 mg PO Q4H PRN PRN Reason: PAIN OR FEVER Albuterol/Ipratropium (Duoneb -) 1 amp NEB Q4H PRN PRN Reason: SHORTNESS OF BREATH Aspirin (Asa -) 81 mg PO DAILY [facility] Last Admin: 02/11/18 10:29 Dose: 81 mg Atorvastatin Calcium (Lipitor -) 20 mg PO HS [facility] Diltiazem HCl (Cardizem Cd -) 240 mg PO DAILY [facility] Last Admin: 02/11/18 12:01 Dose: 240 mg Escitalopram Oxalate (Lexapro -) 10 mg PO DAILY [facility] Last Admin: 02/11/18 12:01 Dose: 10 mg Furosemide (Lasix Injection -) 40 mg IVPUSH DAILY [facility] Last Admin: 02/11/18 13:56 Dose: 40 mg Ceftriaxone Sodium 2 gm/ (Dextrose) 100 mls @ 200 mls/hr IVPB DAILY [facility]; Protocol Insulin Aspart (Novolog Vial Sliding Scale -) 1 vial SQ TIDAC [facility]; Protocol Morphine Sulfate (Morphine Sulfate) 0.5 mg IVPUSH Q5M PRN PRN Reason: chest pain Nitroglycerin (Nitrostat -) 0.4 mg SL Q5M PRN PRN Reason: FOR CHEST PAIN Nystatin (Nystop Powder -) 1 applic TP DAILY [facility] Ondansetron HCl (Zofran Injection) 4 mg IVPUSH Q6H PRN PRN Reason: NAUSEA Last Admin: 02/11/18 09:39 Dose: 4 mg Rivaroxaban (Xarelto -) 20 mg PO DAILY@1800 [facility] Sitagliptin Phosphate (Januvia -) 50 mg PO DAILY@0700 [facility] Last Admin: 02/11/18 12:01 Dose: 50 mg Tramadol HCl (Ultram -) 50 mg PO Q6H PRN PRN Reason: PAIN LEVEL 6-10 - Objective Vital Signs: Vital Signs Temperature 98.1 F 02/11/18 09:00 Pulse Rate 86 02/11/18 09:00 Respiratory Rate 20 02/11/18 09:00 Blood Pressure 124/51 02/11/18 09:00 O2 Sat by Pulse Oximetry (%) 96 02/11/18 09:00 Constitutional: Yes: No Distress HENT: Yes: WNL Neck: Yes: WNL Cardiovascular: Yes: Pulse Irregular (Irreg NL S1S2, No MRHG) Respiratory: Yes: Rhonchi (Basilar) Gastrointestinal: Yes: Normal Bowel Sounds Edema: No Neurological: Yes: Alert, Oriented (Non focal) Labs: CBC, BMP 02/11/18 06:40 02/11/18 06:40 INR, PTT INR 1.16 (0.83-1.09) H 02/10/18 16:00 Assessment/Plan 86 year old female with a PMH of lymphoma,htn, chol, chronic afib on xarelto who came to the ER for weakness, fever, chills nausea and vomiting x 3 days. Found with afib with RVR and ST changes and noted to have positive trops. 02/11/18 Rates ate controlled, no distress, Trops trending down. AFIB Continue Dilt CD 240 mg PO daily May not require adding back DIG Continue AC with Xarelto 20 mg Echocardiogram pending Elevated Trops Demand ischemia (type 2 [place]) Trending down Hold Lasix for now
--- NOTE | 2018-02-11 15:35 | ECHO ---
Name: AARON SILVER Exam:Adult Echocardiogram Study Date: 02/11/2018 08:16 AM Age: 87 yrs Reason For Study: ATRIAL FIBRILLATION WITHRVR EKG CHANGES Height: 67 in Weight: 200 lb BSA: 2.0 m2 MMode/2D Measurements & Calculations IVSd: 1.0 cm Ao root diam: 2.6 cm LVIDd: 5.8 cm LA dimension: 4.8 cm LVIDs: 4.3 cm LVPWd: 1.0 cm EDV(Teich): 164.5 ml LAV (MOD-bp): 132.0 ml ESV(Teich): 84.9 ml TAPSE: 2.5 cm RV S Gianluca: 10.4 cm/sec Doppler Measurements & Calculations MV E max gianluca: 132.8 cm/sec Ao V2 max: 136.7 cm/sec MV A max gianluca: 50.8 cm/sec Ao max P.5 mmHg MV E/A: 2.6 Ao V2 mean: 100.6 cm/sec MV dec time: 0.21 sec Ao mean P.3 mmHg Ao V2 VTI: 24.8 cm AI P1/2t: 517.8 msec AI max gianluca: 276.7 cm/sec LV V1 max P.2 mmHg AI max P.0 mmHg LV V1 mean P.4 mmHg AI dec slope: 156.5 cm/sec2 LV V1 max: 89.5 cm/sec LV V1 mean: 54.0 cm/sec LV V1 VTI: 14.1 cm MR max gianluca: 437.3 cm/sec TR max gianluca: 200.3 cm/sec MR max P.1 mmHg TR max P.8 mmHg PI end-d gianluca: 137.1 cm/sec Med Peak E' Gianluca: 7.3 cm/sec Med E/e': 18.2 Lat Peak E' Gianluca: 8.5 cm/sec Lat E/e': 15.5 Left Ventricle The left ventricle is moderately dilated. Left ventricular systolic function is moderate to severely reduced. There are regional wall motion abnormalities as specified. There is lateral wall akinesis. There is a pical akinesis. There is anterior wall akinesis. Right Ventricle The right ventricular systolic function is grossly normal. Atria The left atrium is moderately dilated. The right atrium is mildly dilated. Mitral Valve There is mild mitral annular calcification. There is mild mitral valve thickening. There is moderate to severe mitral regurgitation. Tricuspid Valve There is moderate tricuspid regurgitation. Right ventricular systolic pressure is elevated at 30-40mm Hg. Aortic Valve There is mild to moderate aortic valve thickening. Mild to moderate aortic regurgitation. Pulmonic Valve Mild pulmonic valvular regurgitation. Great Vessels The aortic root is normal size. Pericardium/Pleura There is no pericardial effusion. Interpretation Summary The left ventricle is moderately dilated. The right ventricular systolic function is grossly normal. There is apical akinesis. There is anterior wall akinesis. The left atrium is moderately dilated. The right atrium is mildly dilated. There is mild mitral annular calcification. There is mild mitral valve thickening. There is moderate to severe mitral regurgitation. Right ventricular systolic pressure is elevated at 30-40mmHg. There is mild to moderate aortic valve thickening. Mild to moderate aortic regurgitation. Mild pulmonic valvular regurgitation. The aortic root is normal size. There is no pericardial effusion. Jaxon Lyons MD 02/11/2018 03:34 PM
[2018-02-11] MEDS: CEFTRIAXONE 2 GM in DEXTROSE 5%-WATER 100 ML IVPB SCH (15:46)
[2018-02-11] MEDS: NYSTATIN POWDER 100,000 UNITS/GM - 15 GM TOPICAL POWDER TP SCH (17:05)
[2018-02-11] MEDS ORDERED: PT OWN MED DRAWER 7, Y5N ONE (17:41)
[2018-02-11] MEDS: RIVAROXABAN 20 MG TABLET PO SCH (17:57)
[2018-02-11] MEDS: INSULIN SLIDING SCALE (NOVOLOG) 1 VIAL SQ SCH (17:57)
[2018-02-11] MEDS: ATORVASTATIN CA 20 MG TABLET (FP) PO SCH (21:08)
[2018-02-12] MEDS: sitaGLIPtin PHOSPHATE 50 MG TABLET PO SCH (06:41)
[2018-02-12] MEDS: INSULIN SLIDING SCALE (NOVOLOG) 1 VIAL SQ SCH ×3 (06:46→17:22)
--- NOTE | 2018-02-12 10:28 | PN ---
Progress Note, Physician Chief Complaint: Nausea, Vomiting Generalized weakness UTI History of Present Illness: NAD Nausea resolved after Zofran, takes Zofran at home as well Daughter Ewelina at bedside Troponins trending down today Cardiology consult appreciated Echo done, results reviewed Tele monitoring - Current Medication List Current Medications: Active Medications Acetaminophen (Tylenol -) 650 mg PO Q4H PRN PRN Reason: PAIN OR FEVER Albuterol/Ipratropium (Duoneb -) 1 amp NEB Q4H PRN PRN Reason: SHORTNESS OF BREATH Aspirin (Asa -) 81 mg PO DAILY [facility] Last Admin: 02/11/18 10:29 Dose: 81 mg Atorvastatin Calcium (Lipitor -) 20 mg PO HS [facility] Last Admin: 02/11/18 21:08 Dose: 20 mg Diltiazem HCl (Cardizem Cd -) 240 mg PO DAILY [facility] Last Admin: 02/11/18 12:01 Dose: 240 mg Escitalopram Oxalate (Lexapro -) 10 mg PO DAILY [facility] Last Admin: 02/11/18 12:01 Dose: 10 mg Ceftriaxone Sodium 2 gm/ (Dextrose) 100 mls @ 200 mls/hr IVPB DAILY [facility]; Protocol Last Admin: 02/11/18 15:46 Dose: 200 mls/hr Insulin Aspart (Novolog Vial Sliding Scale -) 1 vial SQ TIDAC [facility]; Protocol Last Admin: 02/12/18 06:46 Dose: Not Given Morphine Sulfate (Morphine Sulfate) 0.5 mg IVPUSH Q5M PRN PRN Reason: chest pain Nitroglycerin (Nitrostat -) 0.4 mg SL Q5M PRN PRN Reason: FOR CHEST PAIN Nystatin (Nystop Powder -) 1 applic TP DAILY [facility] Last Admin: 02/11/18 17:05 Dose: 1 applic Ondansetron HCl (Zofran Injection) 4 mg IVPUSH Q6H PRN PRN Reason: NAUSEA Last Admin: 02/11/18 09:39 Dose: 4 mg Rivaroxaban (Xarelto -) 20 mg PO DAILY@1800 [facility] Last Admin: 02/11/18 17:57 Dose: 20 mg Sitagliptin Phosphate (Januvia -) 50 mg PO DAILY@0700 [facility] Last Admin: 02/12/18 06:41 Dose: 50 mg Tramadol HCl (Ultram -) 50 mg PO Q6H PRN PRN Reason: PAIN LEVEL 6-10 - Objective Vital Signs: Vital Signs Temperature 97.8 F 02/12/18 05:28 Pulse Rate 82 02/12/18 09:00 Respiratory Rate 20 02/12/18 09:00 Blood Pressure 142/93 02/12/18 09:00 O2 Sat by Pulse Oximetry (%) 97 02/12/18 09:00 Constitutional: Yes: Well Nourished, No Distress, Calm Cardiovascular: Yes: Regular Rate and Rhythm Respiratory: Yes: Regular Gastrointestinal: Yes: Normal Bowel Sounds, Soft Musculoskeletal: Yes: WNL Extremities: Yes: WNL Edema: No Peripheral Pulses WNL: Yes Neurological: Yes: Alert, Oriented Psychiatric: Yes: Alert, Oriented Labs: CBC, BMP 02/11/18 06:40 02/11/18 06:40 INR, PTT INR 1.16 (0.83-1.09) H 02/10/18 16:00 Problem List - Problems (1) UTI (urinary tract infection) Assessment/Plan: -UA shows +2 blood -UC Microbiology 02/10/18 18:42 Urine Culture - Preliminary Urine - Urine Clean Catch Lactose Fermenting Neg Bacilli 02/10/18 16:00 Blood Culture - Preliminary Blood - Peripheral Venous NO GROWTH OBTAINED AFTER 24 HOURS, INCUBATION TO CONTINUE FOR 4 DAYS. 02/10/18 16:00 Blood Culture - Preliminary Blood - Peripheral Venous NO GROWTH OBTAINED AFTER 24 HOURS, INCUBATION TO CONTINUE FOR 4 DAYS. -No Urinary symptoms -afebrile today -Seen by ID -On IV Rocephin 2 gm IVPB daily Code(s): N39.0 - URINARY TRACT INFECTION, SITE NOT SPECIFIED (2) Atrial fibrillation Assessment/Plan: -Chronic -Controlled at this time -Had HASMUKH upon admission -tele monitoring -Xarelto 20 mg po daily -Cardiology consult Code(s): I48.91 - UNSPECIFIED ATRIAL FIBRILLATION Qualifiers: Atrial fibrillation type: chronic Qualified Code(s): I48.2 - Chronic atrial fibrillation (3) Diabetes Assessment/Plan: -A1C at 7.0 -On Januvia -BGM ACHS -Novolog sliding scale TID AC -low sodium diabetic diet Code(s): E11.9 - TYPE 2 DIABETES MELLITUS WITHOUT COMPLICATIONS Qualifiers: Diabetes mellitus type: type 2 (4) Lymphoma Assessment/Plan: -in remission Code(s): C85.90 - NON-HODGKIN LYMPHOMA, UNSPECIFIED, UNSPECIFIED SITE (5) Nausea and vomiting Assessment/Plan: -resolved -Zofran 4 mg IVP Q6H PRN -start low sodium diabetic diet Code(s): R11.2 - NAUSEA WITH VOMITING, UNSPECIFIED Qualifiers: Vomiting type: unspecified Vomiting Intractability: non-intractable Qualified Code(s): R11.2 - Nausea with vomiting, unspecified (6) Elevated troponin I level Assessment/Plan: -Earlier changes in EKG -Repeat EKG no change -Tele monitoring -Cardiology to see the patient -Echo done, results reviewed -troponin trending down Code(s): R74.8 - ABNORMAL LEVELS OF OTHER SERUM ENZYMES Assessment/Plan See problem list Physical therapy
[2018-02-12] MEDS ORDERED: DEXTROSE 5%-WATER 100 ML IVPB ONE (10:46)
[2018-02-12] MEDS: NYSTATIN POWDER 100,000 UNITS/GM - 15 GM TOPICAL POWDER TP SCH (11:11)
[2018-02-12] MEDS: ASPIRIN 81 MG CHEWABLE TABLETS PO SCH (11:11)
[2018-02-12] MEDS: CEFTRIAXONE 2 GM in DEXTROSE 5%-WATER 100 ML IVPB SCH (11:11)
[2018-02-12] MEDS: ESCITALOPRAM OXALATE 10 MG TABLET (FP) PO SCH (11:11)
[2018-02-12 12:46] LABS: BASO % 0.2 % (0-2.0); EOS % 2.4 % (0-4.5); HEMATOCRIT 42.1 % (32.4-45.2); HEMOGLOBIN 14.1 GM/dL (10.7-15.3); LYMPH % 12.4 % (8-40); MCH 31.9 pg (25.7-33.7); MCHC 33.5 g/dl (32.0-36.0); MEAN CELL VOLUME 95.4 fl (80-96); MEAN PLT VOLUME 8.3 fl (7.5-11.1); MONO % 8.9 % (3.8-10.2); NEUT % 76.1 % (42.8-82.8); PLATELET COUNT 260 K/MM3 (134-434); RBC 4.41 M/mm3 (3.60-5.2); RDW 14.6 % (11.6-15.6); WHITE BLOOD COUNT 10.2 K/mm3 (4.0-10.0)
--- NOTE | 2018-02-12 12:46 | PN ---
Progress Note, Physician History of Present Illness: Awake, alert No complaints Denies chest pain/ dyspnea/ cough No c/o dysuria Temps down Afebrile WBC remains elevated 13.8 Urine c/s LF - Current Medication List Current Medications: Active Medications Acetaminophen (Tylenol -) 650 mg PO Q4H PRN PRN Reason: PAIN OR FEVER Albuterol/Ipratropium (Duoneb -) 1 amp NEB Q4H PRN PRN Reason: SHORTNESS OF BREATH Aspirin (Asa -) 81 mg PO DAILY [facility] Last Admin: 02/12/18 11:11 Dose: 81 mg Atorvastatin Calcium (Lipitor -) 20 mg PO HS [facility] Last Admin: 02/11/18 21:08 Dose: 20 mg Diltiazem HCl (Cardizem Cd -) 240 mg PO DAILY [facility] Last Admin: 02/12/18 11:11 Dose: 240 mg Escitalopram Oxalate (Lexapro -) 10 mg PO DAILY [facility] Last Admin: 02/12/18 11:11 Dose: 10 mg Ceftriaxone Sodium 2 gm/ (Dextrose) 100 mls @ 200 mls/hr IVPB DAILY [facility]; Protocol Last Admin: 02/12/18 11:11 Dose: 200 mls/hr Insulin Aspart (Novolog Vial Sliding Scale -) 1 vial SQ TIDAC [facility]; Protocol Last Admin: 02/12/18 06:46 Dose: Not Given Morphine Sulfate (Morphine Sulfate) 0.5 mg IVPUSH Q5M PRN PRN Reason: chest pain Nitroglycerin (Nitrostat -) 0.4 mg SL Q5M PRN PRN Reason: FOR CHEST PAIN Nystatin (Nystop Powder -) 1 applic TP DAILY [facility] Last Admin: 02/12/18 11:11 Dose: Not Given Ondansetron HCl (Zofran Injection) 4 mg IVPUSH Q6H PRN PRN Reason: NAUSEA Last Admin: 02/11/18 09:39 Dose: 4 mg Rivaroxaban (Xarelto -) 20 mg PO DAILY@1800 [facility] Last Admin: 02/11/18 17:57 Dose: 20 mg Sitagliptin Phosphate (Januvia -) 50 mg PO DAILY@0700 [facility] Last Admin: 02/12/18 06:41 Dose: 50 mg Tramadol HCl (Ultram -) 50 mg PO Q6H PRN PRN Reason: PAIN LEVEL 6-10 - Objective Vital Signs: Vital Signs Temperature 97.8 F 02/12/18 05:28 Pulse Rate 82 02/12/18 09:00 Respiratory Rate 20 02/12/18 09:00 Blood Pressure 142/93 02/12/18 09:00 O2 Sat by Pulse Oximetry (%) 97 02/12/18 09:00 Constitutional: Yes: No Distress Eyes: Yes: Conjunctiva Clear Cardiovascular: Yes: Regular Rate and Rhythm, S1, S2 Respiratory: Yes: CTA Bilaterally Gastrointestinal: Yes: Normal Bowel Sounds, Soft, Abdomen, Obese. No: Tenderness Edema: Yes Labs: INR, PTT INR 1.16 (0.83-1.09) H 02/10/18 16:00 Assessment/Plan UTI/ possible sepsis secondary to UTI Fever/ leukocytosis improved ? [place] Lactic acidosis- resolved Azotemia Await urine c/s Continue Ceftriaxone
[2018-02-12 13:27] LABS: ALBUMIN 3.2 g/dl (3.4-5.0); ALK PHOS 45 U/L (45-117); ANION GAP 6 (8-16); BILIRUBIN,TOTAL 0.5 mg/dL (0.2-1.0); BLOOD UREA NITROGEN 44 mg/dL (7-18); CALCIUM 8.9 mg/dL (8.5-10.1); CHLORIDE 97 mmol/L (98-107); CO2 35 mmol/L (21-32); CREATININE 1.4 mg/dL (0.55-1.02); GLUCOSE,RANDOM 137 mg/dL (74-106); POTASSIUM 4.3 mmol/L (3.5-5.1); SGOT/AST 60 U/L (15-37); SGPT/ALT 41 U/L (12-78); SODIUM 138 mmol/L (136-145); TOT PROT 6.9 g/dl (6.4-8.2)
--- NOTE | 2018-02-12 13:42 | CON.PULM ---
Consult Consult Specialty:: PULMONARY Referred by:: Dr. Garcia Reason for Consultation:: pulmonary HTN - History of Present Illness Chief Complaint: nausea History of Present Illness: 87yo female with h/o HTN, hyperlipidemia, atrial fibrillation on anticoagulation , lymphoma s/p chemo who was admitted with nausea and fevers. Found to have a UTI, started on antibiotics. Denies chest pain but with some shortness of breath. +troponins on bloodwork, evaluated by cardiology who suspects demand ischemia. Denies cough or wheezing. She is a remote smoker, never a heavy smoker. She denies being a snorer, does wake up at night from unknown reasons. Lives alone. - History Source History Provided By: Patient, Medical Record Limitations to Obtaining History: No Limitations - Past Medical History Cardio/Vascular: Yes: AFIB, HTN, Hyperlipdemia - Past Surgical History Past Surgical History: Yes: Hysterectomy - Alcohol/Substance Use Hx Alcohol Use: No History of Substance Use: reports: None - Smoking History Smoking history: Former smoker Have you smoked in the past 12 months: No If you are a former smoker, when did you quit?: 9 years ago - Social History ADL: Independent History of Recent Travel: No Home Medications - Allergies Allergies/Adverse Reactions: Allergies Allergy/AdvReac Type Severity Reaction Status Date / Time No Known Allergies Allergy Verified 04/26/15 17:54 - Home Medications Home Medications: Ambulatory Orders Unobtainable 02/10/18 Family Disease History - Family Disease History Family Disease History: CA: Mother (unknown type) Review of Systems - Review of Systems Constitutional: reports: Fever, Malaise, Weakness Eyes: denies: Recent Change in Vision HENT: denies: Nasal Congestion, Throat Pain Neck: denies: Stiffness, Tenderness Cardiovascular: reports: Shortness of Breath. denies: Chest Pain, Edema, Palpitations Respiratory: denies: Cough, Hemoptysis, Wheezing Gastrointestinal: reports: Nausea, Vomiting. denies: Abdominal Pain Genitourinary: denies: Dysuria, Hematuria Neurological: denies: Dizziness, Headache Endocrine: denies: Unexplained Weight Loss Physical Exam Vital Sings: Vital Signs Temperature 97.8 F 02/12/18 05:28 Pulse Rate 82 02/12/18 09:00 Respiratory Rate 20 02/12/18 09:00 Blood Pressure 142/93 02/12/18 09:00 O2 Sat by Pulse Oximetry (%) 97 02/12/18 09:00 Constitutional: Yes: Calm Eyes: Yes: Conjunctiva Clear, EOM Intact HENT: Yes: Atraumatic, Normocephalic Neck: Yes: Supple, Trachea Midline Cardiovascular: Yes: Pulse Irregular Respiratory: Yes: Diminished (decreased breath sounds at the bases) ...Clubbing: No Gastrointestinal: Yes: Normal Bowel Sounds, Soft. No: Tenderness Edema: No Neurological: Yes: Alert, Oriented Labs: CBC, BMP 02/12/18 11:33 02/12/18 11:33 Imaging - Results Chest X-ray: Report Reviewed, Image Reviewed (mild pulmonary vascular congestion ) Problem List - Problems (1) UTI (urinary tract infection) Code(s): N39.0 - URINARY TRACT INFECTION, SITE NOT SPECIFIED (2) Sepsis Code(s): A41.9 - SEPSIS, UNSPECIFIED ORGANISM (3) Demand ischemia Code(s): I24.8 - OTHER FORMS OF ACUTE ISCHEMIC HEART DISEASE (4) Atrial fibrillation Code(s): I48.91 - UNSPECIFIED ATRIAL FIBRILLATION Qualifiers: Atrial fibrillation type: chronic Qualified Code(s): I48.2 - Chronic atrial fibrillation (5) Mitral regurgitation Code(s): I34.0 - NONRHEUMATIC MITRAL (VALVE) INSUFFICIENCY (6) Pulmonary hypertension Code(s): I27.20 - PULMONARY HYPERTENSION, UNSPECIFIED Assessment/Plan UTI Sepsis Lactic Acidosis Acute Kidney Injury +Troponins/Demand Ischemia Pulmonary HTN Mitral Regurgitation HTN DM - continue antibiotics - f/u cultures - O2 to keep SPo2 >90% - inhaled bronchodilators as needed - pulmonary HTN likely secondary to mitral regurgitation - can get PFTs and PSG as outpt to r/o other causes - DVT prophylaxis Thank you for this consult Ivan Mckeon MD
--- NOTE | 2018-02-12 15:50 | PN ---
Progress Note, Physician Chief Complaint: This is an 86 year old female with a PMH of lymphoma,htn, chol , chronic afib on xarelto who came to the ER for weakness, fever, chills nausea and vomiting x 3 days. Found with afib with RVR and ST changes and noted to have positive trops. 02/11/18 Rates ate controlled, no distress, Trops trending down. History of Present Illness: This is an 86 year old female with a PMH of lymphoma,htn, chol , chronic afib on xarelto who came to the ER for weakness, fever, chills nausea and vomiting x 3 days. Found with afib with RVR and ST changes and noted to have positive trops. 02/12/18 Rates ate controlled, no distress, Trops trending down. Echocardiogram 02/11/18: LV is moderately dilated RV function is normal Apical akinesis Anterior wall akinesis LAE Moderate to severe MR Moderate AI - Current Medication List Current Medications: Active Medications Acetaminophen (Tylenol -) 650 mg PO Q4H PRN PRN Reason: PAIN OR FEVER Albuterol/Ipratropium (Duoneb -) 1 amp NEB Q4H PRN PRN Reason: SHORTNESS OF BREATH Aspirin (Asa -) 81 mg PO DAILY [facility] Last Admin: 02/12/18 11:11 Dose: 81 mg Atorvastatin Calcium (Lipitor -) 20 mg PO HS [facility] Last Admin: 02/11/18 21:08 Dose: 20 mg Diltiazem HCl (Cardizem Cd -) 240 mg PO DAILY [facility] Last Admin: 02/12/18 11:11 Dose: 240 mg Escitalopram Oxalate (Lexapro -) 10 mg PO DAILY [facility] Last Admin: 02/12/18 11:11 Dose: 10 mg Ceftriaxone Sodium 2 gm/ (Dextrose) 100 mls @ 200 mls/hr IVPB DAILY [facility]; Protocol Last Admin: 02/12/18 11:11 Dose: 200 mls/hr Insulin Aspart (Novolog Vial Sliding Scale -) 1 vial SQ TIDAC [facility]; Protocol Last Admin: 02/12/18 06:46 Dose: Not Given Morphine Sulfate (Morphine Sulfate) 0.5 mg IVPUSH Q5M PRN PRN Reason: chest pain Nitroglycerin (Nitrostat -) 0.4 mg SL Q5M PRN PRN Reason: FOR CHEST PAIN Nystatin (Nystop Powder -) 1 applic TP DAILY [facility] Last Admin: 02/12/18 11:11 Dose: Not Given Ondansetron HCl (Zofran Injection) 4 mg IVPUSH Q6H PRN PRN Reason: NAUSEA Last Admin: 02/11/18 09:39 Dose: 4 mg Rivaroxaban (Xarelto -) 20 mg PO DAILY@1800 [facility] Last Admin: 02/11/18 17:57 Dose: 20 mg Sitagliptin Phosphate (Januvia -) 50 mg PO DAILY@0700 [facility] Last Admin: 02/12/18 06:41 Dose: 50 mg Tramadol HCl (Ultram -) 50 mg PO Q6H PRN PRN Reason: PAIN LEVEL 6-10 - Objective Vital Signs: Vital Signs Temperature 97.8 F 02/12/18 14:40 Pulse Rate 74 02/12/18 14:40 Respiratory Rate 20 02/12/18 14:40 Blood Pressure 124/59 02/12/18 14:40 O2 Sat by Pulse Oximetry (%) 97 02/12/18 09:00 Constitutional: Yes: No Distress Eyes: Yes: WNL HENT: Yes: WNL Neck: Yes: WNL Cardiovascular: Yes: Pulse Irregular (2/6 [facility]) Respiratory: Yes: CTA Bilaterally Gastrointestinal: Yes: Normal Bowel Sounds Neurological: Yes: Alert, Oriented (Non focal) Labs: CBC, BMP 02/12/18 11:33 02/12/18 11:33 INR, PTT INR 1.16 (0.83-1.09) H 02/10/18 16:00 Assessment/Plan 86 year old female with a PMH of lymphoma, htn, chol, chronic afib on xarelto who came to the ER for weakness, fever, chills nausea and vomiting x 3 days. Found with afib with RVR and ST changes and noted to have positive trops. 02/11/18 Rates ate controlled, no distress, Trops trending down. AFIB Would stop Dilt given [place], and start Metoprolol TARTRATE 25 mg PO Q12 hour Continue ASA 81 mg daily May not require adding back DIG Continue AC with Xarelto 20 mg Echocardiogram noted New anterior and apical WMA as compared with 2015. Therefore would consider further cardiac workup and possibly invasive testing to assess for CAD. Would wait until off of antibiotics and would need to hold AC. Elevated Trops Ischemia (type 2 [place]) Trending down Hold Lasix for now
[2018-02-12] MEDS: ONDANSETRON 4 MG/2 ML VIAL IVPUSH PRN (17:47)
[2018-02-12] MEDS: RIVAROXABAN 20 MG TABLET PO SCH (17:47)
[2018-02-12] MEDS: ATORVASTATIN CA 20 MG TABLET (FP) PO SCH (21:05)
[2018-02-12] MEDS ORDERED: MELATONIN 5 MG TABLETS PO ONE (23:15)
[2018-02-13] MEDS: sitaGLIPtin PHOSPHATE 50 MG TABLET PO SCH (06:25)
[2018-02-13] MEDS: INSULIN SLIDING SCALE (NOVOLOG) 1 VIAL SQ SCH ×3 (06:25→18:29)
[2018-02-13 06:31] LABS: BASO % 0.3 % (0-2.0); EOS % 6.3 % (0-4.5); HEMATOCRIT 41.2 % (32.4-45.2); HEMOGLOBIN 13.7 GM/dL (10.7-15.3); LYMPH % 15.5 % (8-40); MCH 32.2 pg (25.7-33.7); MCHC 33.3 g/dl (32.0-36.0); MEAN CELL VOLUME 96.6 fl (80-96); MEAN PLT VOLUME 8.3 fl (7.5-11.1); MONO % 10.3 % (3.8-10.2); NEUT % 67.6 % (42.8-82.8); PLATELET COUNT 244 K/MM3 (134-434); RBC 4.26 M/mm3 (3.60-5.2); RDW 14.6 % (11.6-15.6); WHITE BLOOD COUNT 9.9 K/mm3 (4.0-10.0)
[2018-02-13 06:57] LABS: ALK PHOS 45 U/L (45-117); ANION GAP 9 (8-16); BILIRUBIN,TOTAL 0.5 mg/dL (0.2-1.0); BLOOD UREA NITROGEN 44 mg/dL (7-18); CHLORIDE 97 mmol/L (98-107); CO2 33 mmol/L (21-32); CREATININE 1.3 mg/dL (0.55-1.02); GLUCOSE,RANDOM 118 mg/dL (74-106); POTASSIUM 3.6 mmol/L (3.5-5.1); SGOT/AST 44 U/L (15-37); SGPT/ALT 38 U/L (12-78); SODIUM 139 mmol/L (136-145); TOT PROT 6.7 g/dl (6.4-8.2)
[2018-02-13] MEDS ORDERED: DEXTROSE 5%-WATER 100 ML IVPB ONE (10:42)
[2018-02-13] MEDS: ESCITALOPRAM OXALATE 10 MG TABLET (FP) PO SCH (11:13)
[2018-02-13] MEDS: ASPIRIN 81 MG CHEWABLE TABLETS PO SCH (11:13)
[2018-02-13] MEDS: NYSTATIN POWDER 100,000 UNITS/GM - 15 GM TOPICAL POWDER TP SCH (11:14)
[2018-02-13] MEDS: CEFTRIAXONE 2 GM in DEXTROSE 5%-WATER 100 ML IVPB SCH (11:14)
--- NOTE | 2018-02-13 11:47 | PN ---
Progress Note, Physician - Current Medication List Current Medications: Active Medications Acetaminophen (Tylenol -) 650 mg PO Q4H PRN PRN Reason: PAIN OR FEVER Albuterol/Ipratropium (Duoneb -) 1 amp NEB Q4H PRN PRN Reason: SHORTNESS OF BREATH Aspirin (Asa -) 81 mg PO DAILY [facility] Last Admin: 02/13/18 11:13 Dose: 81 mg Atorvastatin Calcium (Lipitor -) 20 mg PO HS [facility] Last Admin: 02/12/18 21:05 Dose: 20 mg Diltiazem HCl (Cardizem Cd -) 240 mg PO DAILY [facility] Last Admin: 02/13/18 11:14 Dose: 240 mg Escitalopram Oxalate (Lexapro -) 10 mg PO DAILY [facility] Last Admin: 02/13/18 11:13 Dose: 10 mg Ceftriaxone Sodium 2 gm/ (Dextrose) 100 mls @ 200 mls/hr IVPB DAILY [facility]; Protocol Last Admin: 02/13/18 11:14 Dose: 200 mls/hr Insulin Aspart (Novolog Vial Sliding Scale -) 1 vial SQ TIDAC [facility]; Protocol Last Admin: 02/13/18 06:25 Dose: Not Given Morphine Sulfate (Morphine Sulfate) 0.5 mg IVPUSH Q5M PRN PRN Reason: chest pain Nitroglycerin (Nitrostat -) 0.4 mg SL Q5M PRN PRN Reason: FOR CHEST PAIN Nystatin (Nystop Powder -) 1 applic TP DAILY [facility] Last Admin: 02/13/18 11:14 Dose: 1 applic Ondansetron HCl (Zofran Injection) 4 mg IVPUSH Q6H PRN PRN Reason: NAUSEA Last Admin: 02/12/18 17:47 Dose: 4 mg Rivaroxaban (Xarelto -) 20 mg PO DAILY@1800 [facility] Last Admin: 02/12/18 17:47 Dose: 20 mg Sitagliptin Phosphate (Januvia -) 50 mg PO DAILY@0700 [facility] Last Admin: 02/13/18 06:25 Dose: 50 mg Tramadol HCl (Ultram -) 50 mg PO Q6H PRN PRN Reason: PAIN LEVEL 6-10 - Objective Vital Signs: Vital Signs Temperature 98 F 02/13/18 02:00 Pulse Rate 77 02/13/18 10:00 Respiratory Rate 18 02/13/18 10:00 Blood Pressure 122/78 02/13/18 10:00 O2 Sat by Pulse Oximetry (%) 96 02/13/18 09:00 Cardiovascular: Yes: S1, S2 Respiratory: Yes: Regular, CTA Bilaterally Gastrointestinal: Yes: Normal Bowel Sounds, Soft. No: Tenderness Labs: CBC, BMP 02/13/18 05:30 02/13/18 05:30 INR, PTT INR 1.16 (0.83-1.09) H 02/10/18 16:00 Assessment/Plan - Problems (1) UTI (urinary tract infection) Assessment/Plan: -UA shows +2 blood -UC Microbiology 02/10/18 18:42 Urine Culture - Final Urine - Urine Clean Catch Escherichia Coli 02/11/18 17:30 VRE Culture - Preliminary Rectal Swab NO VREF ISOLATED 02/10/18 16:00 Blood Culture - Preliminary Blood - Peripheral Venous NO GROWTH OBTAINED AFTER 48 HOURS, INCUBATION TO CONTINUE FOR 3 DAYS. 02/10/18 16:00 Blood Culture - Preliminary Blood - Peripheral Venous NO GROWTH OBTAINED AFTER 48 HOURS, INCUBATION TO CONTINUE FOR 3 DAYS. -No Urinary symptoms -afebrile today -Seen by ID -On IV Rocephin 2 gm IVPB daily Code(s): N39.0 - URINARY TRACT INFECTION, SITE NOT SPECIFIED (2) Atrial fibrillation Assessment/Plan: -Chronic -Controlled at this time -Had HASMUKH upon admission -tele monitoring -Xarelto 20 mg po daily -Cardiology consult Code(s): I48.91 - UNSPECIFIED ATRIAL FIBRILLATION Qualifiers: Atrial fibrillation type: chronic Qualified Code(s): I48.2 - Chronic atrial fibrillation (3) Diabetes Assessment/Plan: -A1C at 7.0 -On Januvia -BGM ACHS -Novolog sliding scale TID AC -low sodium diabetic diet Code(s): E11.9 - TYPE 2 DIABETES MELLITUS WITHOUT COMPLICATIONS Qualifiers: Diabetes mellitus type: type 2 (4) Lymphoma Assessment/Plan: -in remission Code(s): C85.90 - NON-HODGKIN LYMPHOMA, UNSPECIFIED, UNSPECIFIED SITE (5) Nausea and vomiting Assessment/Plan: -resolved -Zofran 4 mg IVP Q6H PRN -start low sodium diabetic diet Code(s): R11.2 - NAUSEA WITH VOMITING, UNSPECIFIED Qualifiers: Vomiting type: unspecified Vomiting Intractability: non-intractable Qualified Code(s): R11.2 - Nausea with vomiting, unspecified (6) Elevated troponin I level Assessment/Plan: -Earlier changes in EKG -Repeat EKG no change -Tele monitoring -Cardiology to see the patient -Echo done, results reviewed -troponin trending down =Cath discussed with pt --she agrees-- Code(s): R74.8 - ABNORMAL LEVELS OF OTHER SERUM ENZYMES
--- NOTE | 2018-02-13 13:42 | PN ---
Progress Note (short form) - Note Progress Note: PULMONARY VSS/AFEBRILE DENIES SOB/CP ANICTERIC DISTANT BUT CLEAR S1S2 BS+ MINIMAL B/L LOWER EXT EDEMA LABS/MEDS/NOTES/IMAGES REVIEWED UTI Sepsis Lactic Acidosis Acute Kidney Injury +Troponins/Demand Ischemia Pulmonary HTN Mitral Regurgitation HTN DM - continue antibiotics - f/u cultures - O2 to keep SPo2 >90% - inhaled bronchodilators as needed - pulmonary HTN likely secondary to mitral regurgitation - can get PFTs and PSG as outpt to r/o other causes - DVT prophylaxis Christos MURRY MD
--- NOTE | 2018-02-13 16:10 | CONSULT ---
Consult Consult Specialty:: Nephrology Reason for Consultation:: SREE - History of Present Illness Chief Complaint: weakness History of Present Illness: Pt is an 87 year old female with pmhx of HTN, HLD, a-fib, and lymphoma who presents to the ER with fevers and vomiting. Pt also says that she had fevers. She does not remember how many episodes of vomiting she had. She was found to have a UTI and put on abx. Her creatinine was higher than baseline and I was called to evaluate her. She denies history of CKD. She denies dysuria or hematuria. - History Source History Provided By: Patient, Medical Record - Past Medical History Cardio/Vascular: Yes: AFIB, HTN, Hyperlipdemia - Past Surgical History Past Surgical History: Yes: Hysterectomy - Alcohol/Substance Use Hx Alcohol Use: No History of Substance Use: reports: None - Smoking History Smoking history: Former smoker Have you smoked in the past 12 months: No If you are a former smoker, when did you quit?: 9 years ago - Social History ADL: Independent History of Recent Travel: No Home Medications - Allergies Allergies/Adverse Reactions: Allergies Allergy/AdvReac Type Severity Reaction Status Date / Time No Known Allergies Allergy Verified 04/26/15 17:54 - Home Medications Home Medications: Ambulatory Orders Unobtainable 02/10/18 Family Disease History - Family Disease History Family Disease History: CA: Mother (unknown type) Review of Systems - Review of Systems Constitutional: reports: Malaise Eyes: reports: No Symptoms HENT: reports: No Symptoms Neck: reports: No Symptoms Cardiovascular: reports: No Symptoms Respiratory: reports: No Symptoms Gastrointestinal: reports: Nausea, Vomiting Genitourinary: reports: No Symptoms Musculoskeletal: reports: Muscle Weakness Neurological: reports: No Symptoms Endocrine: reports: No Symptoms Psychiatric: reports: No Symptoms Physical Exam Vital Signs: Vital Signs Temperature 98.2 F 02/13/18 14:34 Pulse Rate 79 02/13/18 14:34 Respiratory Rate 18 02/13/18 14:34 Blood Pressure 128/76 02/13/18 14:34 O2 Sat by Pulse Oximetry (%) 96 02/13/18 09:00 Constitutional: Yes: Calm Eyes: Yes: Conjunctiva Clear HENT: Yes: Atraumatic Cardiovascular: Yes: S1, S2 Respiratory: Yes: On Nasal O2 Gastrointestinal: Yes: Soft, Abdomen, Obese Renal/: Yes: WNL Musculoskeletal: Yes: WNL Edema: LLE: Trace, RLE: Trace Neurological: Yes: Oriented Psychiatric: Yes: Oriented Labs: CBC, BMP 02/13/18 05:30 02/13/18 05:30 Laboratory Tests 04/28/15 06/23/17 02/10/18 06:00 20:55 16:00 WBC Hgb Creatinine 0.8 1.0 D 1.2 H Urine Protein Urine Blood Urine WBC (Auto) Urine RBC (Auto) 02/10/18 02/11/18 02/12/18 18:42 06:40 11:33 WBC Hgb 14.1 Creatinine 1.4 H Urine Protein 3+ H D Urine Blood 2+ H Urine WBC (Auto) 65 Urine RBC (Auto) 02/12/18 02/13/18 02/13/18 11:33 05:30 05:30 WBC 9.9 Hgb 13.7 Creatinine 1.4 H 1.3 H Urine Protein Urine Blood Urine WBC (Auto) Urine RBC (Auto) Imaging - Results Chest X-ray: Report Reviewed Problem List - Problems (1) SREE (acute kidney injury) Code(s): N17.9 - ACUTE KIDNEY FAILURE, UNSPECIFIED (2) Atrial fibrillation Code(s): I48.91 - UNSPECIFIED ATRIAL FIBRILLATION Qualifiers: Atrial fibrillation type: chronic Qualified Code(s): I48.2 - Chronic atrial fibrillation (3) Mitral regurgitation Code(s): I34.0 - NONRHEUMATIC MITRAL (VALVE) INSUFFICIENCY (4) Sepsis Code(s): A41.9 - SEPSIS, UNSPECIFIED ORGANISM (5) UTI (urinary tract infection) Code(s): N39.0 - URINARY TRACT INFECTION, SITE NOT SPECIFIED Assessment/Plan Current Medications Generic Name Dose Route Start Last Admin Trade Name Freq PRN Reason Stop Dose Admin Acetaminophen 650 mg 02/11/18 10:04 Tylenol - PO Q4H PRN PAIN OR FEVER Albuterol/Ipratropium 1 amp 02/11/18 10:01 Duoneb - NEB Q4H PRN SHORTNESS OF BREATH Aspirin 81 mg 02/11/18 10:00 02/13/18 11:13 Asa - PO 81 mg DAILY [facility] Administration Atorvastatin Calcium 20 mg 02/11/18 22:00 02/12/18 21:05 Lipitor - PO 20 mg HS [facility] Administration Diltiazem HCl 240 mg 02/11/18 12:00 02/13/18 11:14 Cardizem Cd - PO 240 mg DAILY [facility] Administration Escitalopram Oxalate 10 mg 02/11/18 12:00 02/13/18 11:13 Lexapro - PO 10 mg DAILY [facility] Administration Ceftriaxone Sodium 2 gm/ 100 mls @ 200 mls/hr 02/11/18 12:15 02/13/18 11:14 Dextrose IVPB 200 mls/hr DAILY [facility] Administration Protocol Insulin Aspart 1 vial 02/11/18 16:30 02/13/18 06:25 Novolog Vial Sliding Scale - SQ Not Given TIDAC [facility] Protocol Morphine Sulfate 0.5 mg 02/11/18 10:03 Morphine Sulfate IVPUSH Q5M PRN chest pain Nitroglycerin 0.4 mg 02/11/18 10:03 Nitrostat - SL Q5M PRN FOR CHEST PAIN Nystatin 1 applic 02/11/18 14:00 02/13/18 11:14 Nystop Powder - TP 1 applic DAILY [facility] Administration Ondansetron HCl 4 mg 02/10/18 20:29 02/12/18 17:47 Zofran Injection IVPUSH 4 mg Q6H PRN Administration NAUSEA Rivaroxaban 20 mg 02/11/18 18:00 02/12/18 17:47 Xarelto - PO 20 mg DAILY@1800 [facility] Administration Sitagliptin Phosphate 50 mg 02/11/18 12:00 02/13/18 06:25 Januvia - PO 50 mg DAILY@0700 [facility] Administration Tramadol HCl 50 mg 02/11/18 10:04 Ultram - PO Q6H PRN PAIN LEVEL 6-10 Impression 1. SREE 2. UTI 3. sepsis 4. lymphoma 5. a-fib 6. htn Plan - sree may be secondary to sepsis - repeat ua - check urine lytes and ergonomics consultant to calc fena - cont abx - repeat bmp in am Dr Wiggins
--- NOTE | 2018-02-13 16:29 | PN ---
Progress Note, Physician History of Present Illness: Awake, alert Supine in bed No complaints Denies chest pain/ dyspnea/ cough No c/o dysuria Afebrile WBC improved WNL Urine c/s E. coli - Current Medication List Current Medications: Active Medications Acetaminophen (Tylenol -) 650 mg PO Q4H PRN PRN Reason: PAIN OR FEVER Albuterol/Ipratropium (Duoneb -) 1 amp NEB Q4H PRN PRN Reason: SHORTNESS OF BREATH Aspirin (Asa -) 81 mg PO DAILY [facility] Last Admin: 02/13/18 11:13 Dose: 81 mg Atorvastatin Calcium (Lipitor -) 20 mg PO HS [facility] Last Admin: 02/12/18 21:05 Dose: 20 mg Diltiazem HCl (Cardizem Cd -) 240 mg PO DAILY [facility] Last Admin: 02/13/18 11:14 Dose: 240 mg Escitalopram Oxalate (Lexapro -) 10 mg PO DAILY [facility] Last Admin: 02/13/18 11:13 Dose: 10 mg Ceftriaxone Sodium 2 gm/ (Dextrose) 100 mls @ 200 mls/hr IVPB DAILY [facility]; Protocol Last Admin: 02/13/18 11:14 Dose: 200 mls/hr Insulin Aspart (Novolog Vial Sliding Scale -) 1 vial SQ TIDAC [facility]; Protocol Last Admin: 02/13/18 06:25 Dose: Not Given Morphine Sulfate (Morphine Sulfate) 0.5 mg IVPUSH Q5M PRN PRN Reason: chest pain Nitroglycerin (Nitrostat -) 0.4 mg SL Q5M PRN PRN Reason: FOR CHEST PAIN Nystatin (Nystop Powder -) 1 applic TP DAILY [facility] Last Admin: 02/13/18 11:14 Dose: 1 applic Ondansetron HCl (Zofran Injection) 4 mg IVPUSH Q6H PRN PRN Reason: NAUSEA Last Admin: 02/12/18 17:47 Dose: 4 mg Rivaroxaban (Xarelto -) 20 mg PO DAILY@1800 [facility] Last Admin: 02/12/18 17:47 Dose: 20 mg Sitagliptin Phosphate (Januvia -) 50 mg PO DAILY@0700 [facility] Last Admin: 02/13/18 06:25 Dose: 50 mg Tramadol HCl (Ultram -) 50 mg PO Q6H PRN PRN Reason: PAIN LEVEL 6-10 - Objective Vital Signs: Vital Signs Temperature 98.2 F 02/13/18 14:34 Pulse Rate 79 02/13/18 14:34 Respiratory Rate 18 02/13/18 14:34 Blood Pressure 128/76 02/13/18 14:34 O2 Sat by Pulse Oximetry (%) 96 02/13/18 09:00 Constitutional: Yes: No Distress Eyes: Yes: Conjunctiva Clear Cardiovascular: Yes: Regular Rate and Rhythm, S1, S2 Respiratory: Yes: CTA Bilaterally Gastrointestinal: Yes: Normal Bowel Sounds, Soft. No: Tenderness Labs: CBC, BMP 02/13/18 05:30 02/13/18 05:30 INR, PTT INR 1.16 (0.83-1.09) H 02/10/18 16:00 Assessment/Plan UTI/ possible sepsis secondary to UTI Fever/ leukocytosis improved ? ME Lactic acidosis- resolved Azotemia Continue Ceftriaxone
--- NOTE | 2018-02-13 17:05 | PN ---
Progress Note, Physician Chief Complaint: Comfortable History of Present Illness: This is an 86 year old female with a PMH of lymphoma,htn, chol , chronic afib on xarelto who came to the ER for weakness, fever, chills nausea and vomiting x 3 days. Found with afib with RVR and ST changes and noted to have positive trops. 02/13/18 Rates ate controlled, no distress, Trops trending down. No complaints Echocardiogram 02/11/18: LV is moderately dilated RV function is normal Apical akinesis Anterior wall akinesis LAE Moderate to severe MR Moderate AI Given the above echo findings which are new, we plan to transfer to [facility] for cardiac cath when infection is cleared and off ABX. - Current Medication List Current Medications: Active Medications Acetaminophen (Tylenol -) 650 mg PO Q4H PRN PRN Reason: PAIN OR FEVER Albuterol/Ipratropium (Duoneb -) 1 amp NEB Q4H PRN PRN Reason: SHORTNESS OF BREATH Aspirin (Asa -) 81 mg PO DAILY [facility] Last Admin: 02/13/18 11:13 Dose: 81 mg Atorvastatin Calcium (Lipitor -) 20 mg PO HS [facility] Last Admin: 02/12/18 21:05 Dose: 20 mg Diltiazem HCl (Cardizem Cd -) 240 mg PO DAILY [facility] Last Admin: 02/13/18 11:14 Dose: 240 mg Escitalopram Oxalate (Lexapro -) 10 mg PO DAILY [facility] Last Admin: 02/13/18 11:13 Dose: 10 mg Ceftriaxone Sodium 2 gm/ (Dextrose) 100 mls @ 200 mls/hr IVPB DAILY [facility]; Protocol Last Admin: 02/13/18 11:14 Dose: 200 mls/hr Insulin Aspart (Novolog Vial Sliding Scale -) 1 vial SQ TIDAC [facility]; Protocol Last Admin: 02/13/18 11:30 Dose: Not Given Morphine Sulfate (Morphine Sulfate) 0.5 mg IVPUSH Q5M PRN PRN Reason: chest pain Nitroglycerin (Nitrostat -) 0.4 mg SL Q5M PRN PRN Reason: FOR CHEST PAIN Nystatin (Nystop Powder -) 1 applic TP DAILY [facility] Last Admin: 02/13/18 11:14 Dose: 1 applic Ondansetron HCl (Zofran Injection) 4 mg IVPUSH Q6H PRN PRN Reason: NAUSEA Last Admin: 02/12/18 17:47 Dose: 4 mg Rivaroxaban (Xarelto -) 20 mg PO DAILY@1800 [facility] Last Admin: 02/12/18 17:47 Dose: 20 mg Sitagliptin Phosphate (Januvia -) 50 mg PO DAILY@0700 [facility] Last Admin: 02/13/18 06:25 Dose: 50 mg Tramadol HCl (Ultram -) 50 mg PO Q6H PRN PRN Reason: PAIN LEVEL 6-10 - Objective Vital Signs: Vital Signs Temperature 98.2 F 02/13/18 14:34 Pulse Rate 79 02/13/18 14:34 Respiratory Rate 18 02/13/18 14:34 Blood Pressure 128/76 02/13/18 14:34 O2 Sat by Pulse Oximetry (%) 96 02/13/18 09:00 Constitutional: Yes: No Distress Eyes: Yes: WNL HENT: Yes: WNL Neck: Yes: WNL Cardiovascular: Yes: Pulse Irregular (Nl S1S2, No MRHG) Edema: LLE: Trace, RLE: Trace Neurological: Yes: Alert, Oriented (Grossly non focal) Labs: CBC, BMP 02/13/18 05:30 02/13/18 05:30 INR, PTT INR 1.16 (0.83-1.09) H 02/10/18 16:00 Assessment/Plan 86 year old female with a PMH of lymphoma, htn, chol, chronic afib on xarelto who came to the ER for weakness, fever, chills nausea and vomiting x 3 days. Found with afib with RVR and ST changes and noted to have positive trops. 02/11/18 Rates ate controlled, no distress, Trops trending down. AFIB Would stop Dilt given MS, and start Metoprolol TARTRATE 25 mg PO Q12 hour Continue ASA 81 mg daily May not require adding back DIG Continue AC with Xarelto 20 mg Echocardiogram noted New anterior and apical WMA as compared with 2015. Therefore would consider further cardiac workup and possibly invasive testing to assess for CAD. Would wait until off of antibiotics and would need to hold AC. Elevated Trops Ischemia (type 2 MS) Trending down Given the above echo findings which are new, we plan to transfer to [facility] for cardiac cath when infection is cleared and off ABX. Xarelto will need to be held 48 hours prior to cardiac cath.
[2018-02-13] MEDS: RIVAROXABAN 20 MG TABLET PO SCH (18:29)
[2018-02-13] MEDS: ATORVASTATIN CA 20 MG TABLET (FP) PO SCH (22:58)
[2018-02-13] MEDS: MELATONIN 5 MG TABLETS PO PRN (22:58)
[2018-02-14 06:39] LABS: ANION GAP 5 (8-16); BILIRUBIN,TOTAL 0.4 mg/dL (0.2-1.0); BLOOD UREA NITROGEN 36 mg/dL (7-18); CALCIUM 9.1 mg/dL (8.5-10.1); CHLORIDE 98 mmol/L (98-107); CO2 35 mmol/L (21-32); GLUCOSE,RANDOM 139 mg/dL (74-106); POTASSIUM 3.6 mmol/L (3.5-5.1); SGOT/AST 42 U/L (15-37); SGPT/ALT 39 U/L (12-78); SODIUM 138 mmol/L (136-145)
[2018-02-14 06:40] LABS: ALK PHOS 42 U/L (45-117); TOT PROT 6.6 g/dl (6.4-8.2)
[2018-02-14] MEDS: INSULIN SLIDING SCALE (NOVOLOG) 1 VIAL SQ SCH ×3 (07:13→17:33)
[2018-02-14] MEDS: sitaGLIPtin PHOSPHATE 50 MG TABLET PO SCH (07:15)
[2018-02-14] MEDS ORDERED: DEXTROSE 5%-WATER 100 ML IVPB ONE (09:24)
[2018-02-14] MEDS: CEFTRIAXONE 2 GM in DEXTROSE 5%-WATER 100 ML IVPB SCH (09:32)
[2018-02-14] MEDS: ESCITALOPRAM OXALATE 10 MG TABLET (FP) PO SCH (09:32)
[2018-02-14] MEDS: ASPIRIN 81 MG CHEWABLE TABLETS PO SCH (09:32)
[2018-02-14] MEDS: NYSTATIN POWDER 100,000 UNITS/GM - 15 GM TOPICAL POWDER TP SCH (09:33)
--- NOTE | 2018-02-14 13:03 | PN ---
Progress Note (short form) - Note Progress Note: PULMONARY VSS/AFEBRILE ANICTERIC DISTANT BUT CLEAR S1S2 BS+ MINIMAL B/L LOWER EXT EDEMA LABS/MEDS/NOTES/IMAGES REVIEWED UTI Sepsis Lactic Acidosis Acute Kidney Injury +Troponins/Demand Ischemia Pulmonary HTN Mitral Regurgitation HTN DM - continue antibiotics - f/u cultures - O2 to keep SPo2 >90% - inhaled bronchodilators as needed - pulmonary HTN likely secondary to mitral regurgitation - can get PFTs and PSG as outpt to r/o other causes - DVT prophylaxis Christos MURRY MD
--- NOTE | 2018-02-14 13:48 | PN ---
Progress Note, Physician - Current Medication List Current Medications: Active Medications Acetaminophen (Tylenol -) 650 mg PO Q4H PRN PRN Reason: PAIN OR FEVER Albuterol/Ipratropium (Duoneb -) 1 amp NEB Q4H PRN PRN Reason: SHORTNESS OF BREATH Aspirin (Asa -) 81 mg PO DAILY [facility] Last Admin: 02/14/18 09:32 Dose: 81 mg Atorvastatin Calcium (Lipitor -) 20 mg PO HS [facility] Last Admin: 02/13/18 22:58 Dose: 20 mg Diltiazem HCl (Cardizem Cd -) 240 mg PO DAILY [facility] Last Admin: 02/14/18 09:32 Dose: 240 mg Escitalopram Oxalate (Lexapro -) 10 mg PO DAILY [facility] Last Admin: 02/14/18 09:32 Dose: 10 mg Ceftriaxone Sodium 2 gm/ (Dextrose) 100 mls @ 200 mls/hr IVPB DAILY [facility]; Protocol Last Admin: 02/14/18 09:32 Dose: 200 mls/hr Insulin Aspart (Novolog Vial Sliding Scale -) 1 vial SQ TIDAC [facility]; Protocol Last Admin: 02/14/18 12:46 Dose: Not Given Melatonin (Melatonin) 5 mg PO HS PRN PRN Reason: INSOMNIA Last Admin: 02/13/18 22:58 Dose: 5 mg Morphine Sulfate (Morphine Sulfate) 0.5 mg IVPUSH Q5M PRN PRN Reason: chest pain Nitroglycerin (Nitrostat -) 0.4 mg SL Q5M PRN PRN Reason: FOR CHEST PAIN Nystatin (Nystop Powder -) 1 applic TP DAILY [facility] Last Admin: 02/14/18 09:33 Dose: 1 applic Ondansetron HCl (Zofran Injection) 4 mg IVPUSH Q6H PRN PRN Reason: NAUSEA Last Admin: 02/12/18 17:47 Dose: 4 mg Rivaroxaban (Xarelto -) 20 mg PO DAILY@1800 [facility] Last Admin: 02/13/18 18:29 Dose: 20 mg Sitagliptin Phosphate (Januvia -) 50 mg PO DAILY@0700 [facility] Last Admin: 02/14/18 07:15 Dose: 50 mg Tramadol HCl (Ultram -) 50 mg PO Q6H PRN PRN Reason: PAIN LEVEL 6-10 - Objective Vital Signs: Vital Signs Temperature 97.2 F L 02/14/18 09:00 Pulse Rate 84 02/14/18 09:00 Respiratory Rate 18 02/14/18 09:00 Blood Pressure 121/66 02/14/18 09:00 O2 Sat by Pulse Oximetry (%) 98 02/14/18 09:00 Cardiovascular: Yes: S1, S2 Respiratory: Yes: Regular, CTA Bilaterally Gastrointestinal: Yes: Normal Bowel Sounds, Soft. No: Tenderness Labs: CBC, BMP 02/13/18 05:30 02/14/18 05:40 INR, PTT INR 1.16 (0.83-1.09) H 02/10/18 16:00 Assessment/Plan - Problems (1) UTI (urinary tract infection) Assessment/Plan: -UA shows +2 blood -UC Microbiology 02/10/18 18:42 Urine Culture - Final Urine - Urine Clean Catch Escherichia Coli 02/11/18 17:30 VRE Culture - Preliminary Rectal Swab NO VREF ISOLATED 02/10/18 16:00 Blood Culture - Preliminary Blood - Peripheral Venous NO GROWTH OBTAINED AFTER 48 HOURS, INCUBATION TO CONTINUE FOR 3 DAYS. 02/10/18 16:00 Blood Culture - Preliminary Blood - Peripheral Venous NO GROWTH OBTAINED AFTER 48 HOURS, INCUBATION TO CONTINUE FOR 3 DAYS. -No Urinary symptoms -afebrile today -Seen by ID -On IV Rocephin 2 gm IVPB daily Code(s): N39.0 - URINARY TRACT INFECTION, SITE NOT SPECIFIED (2) Atrial fibrillation Assessment/Plan: -Chronic -Controlled at this time -Had HASMUKH upon admission -tele monitoring -Xarelto 20 mg po daily -Cardiology consult Code(s): I48.91 - UNSPECIFIED ATRIAL FIBRILLATION Qualifiers: Atrial fibrillation type: chronic Qualified Code(s): I48.2 - Chronic atrial fibrillation (3) Diabetes Assessment/Plan: -A1C at 7.0 -On Januvia -BGM ACHS -Novolog sliding scale TID AC -low sodium diabetic diet Code(s): E11.9 - TYPE 2 DIABETES MELLITUS WITHOUT COMPLICATIONS Qualifiers: Diabetes mellitus type: type 2 (4) Lymphoma Assessment/Plan: -in remission Code(s): C85.90 - NON-HODGKIN LYMPHOMA, UNSPECIFIED, UNSPECIFIED SITE (5) Nausea and vomiting Assessment/Plan: -resolved -Zofran 4 mg IVP Q6H PRN -start low sodium diabetic diet Code(s): R11.2 - NAUSEA WITH VOMITING, UNSPECIFIED Qualifiers: Vomiting type: unspecified Vomiting Intractability: non-intractable Qualified Code(s): R11.2 - Nausea with vomiting, unspecified (6) Elevated troponin I level Assessment/Plan: -Earlier changes in EKG -Repeat EKG no change -Tele monitoring -Cardiology to see the patient -Echo done, results reviewed -troponin trending down =Cath discussed with pt --she agrees-- Code(s): R74.8 - ABNORMAL LEVELS OF OTHER SERUM ENZYMES
--- NOTE | 2018-02-14 13:54 | PN ---
Progress Note (short form) - Note Progress Note: covering dr allred problems 1. SREE 2. UTI 3. sepsis 4. lymphoma 5. a-fib 6. htn Last Vital Signs Temp Pulse Resp BP Pulse Ox 97.2 F L 84 18 121/66 98 02/14/18 09:00 02/14/18 09:00 02/14/18 09:00 02/14/18 09:00 02/14/18 09:00 alert in nad lungs clear heart reg abd soft nontender ext no edema CBC, BMP 02/13/18 05:30 02/14/18 05:40 IMP- sree resolving Plan
[2018-02-14] MEDS ORDERED: HEPARIN NA (PORCINE) 5,000 UNITS/ML 1ML VIAL IVPUSH PRN ×2 (17:28)
--- NOTE | 2018-02-14 17:28 | PN ---
Progress Note, Physician History of Present Illness: seen and examined today in [facility]. no overnight events. no new complaints. no chest pain. - Current Medication List Current Medications: Active Medications Acetaminophen (Tylenol -) 650 mg PO Q4H PRN PRN Reason: PAIN OR FEVER Albuterol/Ipratropium (Duoneb -) 1 amp NEB Q4H PRN PRN Reason: SHORTNESS OF BREATH Aspirin (Asa -) 81 mg PO DAILY [facility] Last Admin: 02/14/18 09:32 Dose: 81 mg Atorvastatin Calcium (Lipitor -) 20 mg PO HS [facility] Last Admin: 02/13/18 22:58 Dose: 20 mg Diltiazem HCl (Cardizem Cd -) 240 mg PO DAILY [facility] Last Admin: 02/14/18 09:32 Dose: 240 mg Escitalopram Oxalate (Lexapro -) 10 mg PO DAILY [facility] Last Admin: 02/14/18 09:32 Dose: 10 mg Ceftriaxone Sodium 2 gm/ (Dextrose) 100 mls @ 200 mls/hr IVPB DAILY [facility]; Protocol Last Admin: 02/14/18 09:32 Dose: 200 mls/hr Insulin Aspart (Novolog Vial Sliding Scale -) 1 vial SQ TIDAC [facility]; Protocol Last Admin: 02/14/18 12:46 Dose: Not Given Melatonin (Melatonin) 5 mg PO HS PRN PRN Reason: INSOMNIA Last Admin: 02/13/18 22:58 Dose: 5 mg Morphine Sulfate (Morphine Sulfate) 0.5 mg IVPUSH Q5M PRN PRN Reason: chest pain Nitroglycerin (Nitrostat -) 0.4 mg SL Q5M PRN PRN Reason: FOR CHEST PAIN Nystatin (Nystop Powder -) 1 applic TP DAILY [facility] Last Admin: 02/14/18 09:33 Dose: 1 applic Ondansetron HCl (Zofran Injection) 4 mg IVPUSH Q6H PRN PRN Reason: NAUSEA Last Admin: 02/12/18 17:47 Dose: 4 mg Rivaroxaban (Xarelto -) 20 mg PO DAILY@1800 [facility] Last Admin: 02/13/18 18:29 Dose: 20 mg Sitagliptin Phosphate (Januvia -) 50 mg PO DAILY@0700 [facility] Last Admin: 02/14/18 07:15 Dose: 50 mg Tramadol HCl (Ultram -) 50 mg PO Q6H PRN PRN Reason: PAIN LEVEL 6-10 - Objective Vital Signs: Vital Signs Temperature 98.2 F 02/14/18 14:00 Pulse Rate 69 02/14/18 14:00 Respiratory Rate 18 02/14/18 09:00 Blood Pressure 128/68 02/14/18 14:00 O2 Sat by Pulse Oximetry (%) 98 02/14/18 09:00 Constitutional: Yes: No Distress, Calm, Obese Eyes: Yes: Conjunctiva Clear, EOM Intact HENT: Yes: Atraumatic, Normocephalic Neck: Yes: Supple, Trachea Midline Cardiovascular: Yes: Pulse Irregular, S1, S2. No: Regular Rate and Rhythm, Bradycardia, Tachycardia, Bruit, JVD, Gallop, Murmur, Rub, S3, S4, Varicosities Respiratory: Yes: Regular, Diminished, Rales. No: Rhonchi, SOB, Wheezes Gastrointestinal: Yes: Normal Bowel Sounds, Soft. No: Distention, Tenderness Edema: Yes Edema: LLE: 2+, RLE: 2+ Peripheral Pulses WNL: Yes Peripheral Pulses: Left Doralis Pedis: 2+, Right Dorsalis Pedis: 2+ Neurological: Yes: Alert, Oriented Psychiatric: Yes: Alert, Oriented Labs: CBC, BMP 02/13/18 05:30 02/14/18 05:40 INR, PTT INR 1.16 (0.83-1.09) H 02/10/18 16:00 - ....Imaging Chest X-ray: Report Reviewed, Image Reviewed EKG: Report Reviewed, Image Reviewed Other: Report Reviewed, Image Reviewed (tele-AF, HR adequate) Assessment/Plan 86 year old female with a PMH of lymphoma, htn, chol, chronic afib on xarelto who came to the ER for weakness, fever, chills nausea and vomiting x 3 days. Found with afib with RVR and ST changes and noted to have positive trops. 02/11/18 Rates ate controlled, no distress, Trops trending down. AFIB Would stop Diltiazem given [place], and start Metoprolol TARTRATE 25 mg PO Q12 hour Continue ASA 81 mg daily May not require adding back DIG Stop Xarelto and start heparin gtt in preparation for possible cardiac cath Elevated Trops Ischemia (type 2 [place]) Trended down, no further chest pain Echocardiogram noted New anterior and apical WMA as compared with 2014. Therefore would consider further cardiac workup and possibly invasive testing to assess for CAD. Would wait until off of antibiotics and would need to hold AC. Given the above echo findings which are new, will plan to transfer to [facility] for cardiac cath when infection is cleared and off ABX and once establish that creatinine stable and pt is optimized from a renal perspective for contrast. Please request renal input on this. Xarelto will need to be held 48 hours prior to cardiac cath thus dcd it now and ordered heparin gtt, this can be changed to Lovenox if desired at discretion of primary team.
[2018-02-14] MEDS: HEPARIN INFUSION - 25,000 UNITS/500 ML INFUS.BAG IVPB SCH (18:00)
[2018-02-14 19:00] LABS: URINE APPEARANCE CLEAR; URINE BILIRUBIN NEGATIVE (<2.0 mg/dL); URINE COLOR YELLOW; URINE GLUCOSE (UA) NEGATIVE (NEGATIVE); URINE KETONE NEGATIVE (NEGATIVE); URINE LEUK ESTERASE NEGATIVE (NEGATIVE); URINE NITRITE NEGATIVE (NEGATIVE); URINE PROTEIN NEGATIVE (NEGATIVE); URINE UROBILINOGEN NEGATIVE mg/dL (0.2-1.0)
[2018-02-14] MEDS: METOPROLOL TARTRATE 25 MG TABLET (FP) PO SCH (21:11)
[2018-02-14] MEDS: MELATONIN 5 MG TABLETS PO PRN (21:11)
[2018-02-14] MEDS: ATORVASTATIN CA 20 MG TABLET (FP) PO SCH (21:11)
[2018-02-14] MEDS: ONDANSETRON 4 MG/2 ML VIAL IVPUSH PRN (23:01)
[2018-02-15] MEDS: INSULIN SLIDING SCALE (NOVOLOG) 1 VIAL SQ SCH ×3 (06:12→17:57)
[2018-02-15] MEDS: sitaGLIPtin PHOSPHATE 50 MG TABLET PO SCH (06:35)
[2018-02-15] MEDS ORDERED: DEXTROSE 5%-WATER 100 ML IVPB ONE (08:50)
[2018-02-15] MEDS: METOPROLOL TARTRATE 25 MG TABLET (FP) PO SCH ×2 (09:12→21:09)
[2018-02-15] MEDS: CEFTRIAXONE 2 GM in DEXTROSE 5%-WATER 100 ML IVPB SCH (09:12)
[2018-02-15] MEDS: ASPIRIN 81 MG CHEWABLE TABLETS PO SCH (09:12)
[2018-02-15] MEDS: NYSTATIN POWDER 100,000 UNITS/GM - 15 GM TOPICAL POWDER TP SCH (09:13)
[2018-02-15] MEDS: ESCITALOPRAM OXALATE 10 MG TABLET (FP) PO SCH (09:13)
--- NOTE | 2018-02-15 11:31 | PN ---
Progress Note, Physician - Current Medication List Current Medications: Active Medications Acetaminophen (Tylenol -) 650 mg PO Q4H PRN PRN Reason: PAIN OR FEVER Albuterol/Ipratropium (Duoneb -) 1 amp NEB Q4H PRN PRN Reason: SHORTNESS OF BREATH Last Admin: 02/14/18 23:46 Dose: 1 amp Aspirin (Asa -) 81 mg PO DAILY [facility] Last Admin: 02/15/18 09:12 Dose: 81 mg Atorvastatin Calcium (Lipitor -) 20 mg PO HS [facility] Last Admin: 02/14/18 21:11 Dose: 20 mg Escitalopram Oxalate (Lexapro -) 10 mg PO DAILY [facility] Last Admin: 02/15/18 09:13 Dose: 10 mg Heparin Sodium (Porcine) (Heparin -) 1,000 unit IVPUSH PRN PRN PRN Reason: Heparin Last Admin: 02/14/18 22:38 Dose: 1,000 unit Heparin Sodium (Porcine) (Heparin -) 5,000 unit IVPUSH PRN PRN PRN Reason: Heparin Last Admin: 02/15/18 09:12 Dose: 5,000 unit Ceftriaxone Sodium 2 gm/ (Dextrose) 100 mls @ 200 mls/hr IVPB DAILY [facility]; Protocol Last Admin: 02/15/18 09:12 Dose: 200 mls/hr Heparin Sodium/Dextrose (Heparin Infusion -) 25,000 units in 500 mls @ 20 mls/ hr IVPB TITR [facility]; Protocol Last Titration: 02/15/18 09:13 Dose: 1,250 units/hr, 25 mls/hr Insulin Aspart (Novolog Vial Sliding Scale -) 1 vial SQ TIDAC [facility]; Protocol Last Admin: 02/15/18 11:13 Dose: Not Given Melatonin (Melatonin) 5 mg PO HS PRN PRN Reason: INSOMNIA Last Admin: 02/14/18 21:11 Dose: 5 mg Metoprolol Tartrate (Lopressor -) 25 mg PO BID [facility] Last Admin: 02/15/18 09:12 Dose: 25 mg Morphine Sulfate (Morphine Sulfate) 0.5 mg IVPUSH Q5M PRN PRN Reason: chest pain Nitroglycerin (Nitrostat -) 0.4 mg SL Q5M PRN PRN Reason: FOR CHEST PAIN Nystatin (Nystop Powder -) 1 applic TP DAILY [facility] Last Admin: 02/15/18 09:13 Dose: 1 applic Ondansetron HCl (Zofran Injection) 4 mg IVPUSH Q6H PRN PRN Reason: NAUSEA Last Admin: 02/14/18 23:01 Dose: 4 mg Sitagliptin Phosphate (Januvia -) 50 mg PO DAILY@0700 [facility] Last Admin: 02/15/18 06:35 Dose: 50 mg Tramadol HCl (Ultram -) 50 mg PO Q6H PRN PRN Reason: PAIN LEVEL 6-10 - Objective Vital Signs: Vital Signs Temperature 97.9 F 02/15/18 05:15 Pulse Rate 76 02/15/18 09:00 Respiratory Rate 18 02/15/18 09:00 Blood Pressure 115/59 02/15/18 09:00 O2 Sat by Pulse Oximetry (%) 98 02/15/18 08:23 Cardiovascular: Yes: Regular Rate and Rhythm Respiratory: Yes: Regular, CTA Bilaterally Gastrointestinal: Yes: Normal Bowel Sounds, Soft Labs: CBC, BMP 02/13/18 05:30 02/14/18 05:40 INR, PTT INR 1.16 (0.83-1.09) H 02/10/18 16:00 Assessment/Plan - Problems (1) UTI (urinary tract infection) Assessment/Plan: -UA shows +2 blood -[facility] Microbiology 02/10/18 18:42 Urine Culture - Final Urine - Urine Clean Catch Escherichia Coli 02/11/18 17:30 VRE Culture - Preliminary Rectal Swab NO VREF ISOLATED 02/10/18 16:00 Blood Culture - Preliminary Blood - Peripheral Venous NO GROWTH OBTAINED AFTER 48 HOURS, INCUBATION TO CONTINUE FOR 3 DAYS. 02/10/18 16:00 Blood Culture - Preliminary Blood - Peripheral Venous NO GROWTH OBTAINED AFTER 48 HOURS, INCUBATION TO CONTINUE FOR 3 DAYS. -No Urinary symptoms -afebrile today -Seen by ID -On IV Rocephin 2 gm IVPB daily Code(s): N39.0 - URINARY TRACT INFECTION, SITE NOT SPECIFIED (2) Atrial fibrillation Assessment/Plan: -Chronic -Controlled at this time -Had HASMUKH upon admission -tele monitoring -Xarelto 20 mg po daily -Cardiology consult Code(s): I48.91 - UNSPECIFIED ATRIAL FIBRILLATION Qualifiers: Atrial fibrillation type: chronic Qualified Code(s): I48.2 - Chronic atrial fibrillation (3) Diabetes Assessment/Plan: -A1C at 7.0 -On Januvia -BGM ACHS -Novolog sliding scale TID AC -low sodium diabetic diet Code(s): E11.9 - TYPE 2 DIABETES MELLITUS WITHOUT COMPLICATIONS Qualifiers: Diabetes mellitus type: type 2 (4) Lymphoma Assessment/Plan: -in remission Code(s): C85.90 - NON-HODGKIN LYMPHOMA, UNSPECIFIED, UNSPECIFIED SITE (5) Nausea and vomiting Assessment/Plan: -resolved -Zofran 4 mg IVP Q6H PRN -start low sodium diabetic diet Code(s): R11.2 - NAUSEA WITH VOMITING, UNSPECIFIED Qualifiers: Vomiting type: unspecified Vomiting Intractability: non-intractable Qualified Code(s): R11.2 - Nausea with vomiting, unspecified (6) Elevated troponin I level Assessment/Plan: -Earlier changes in EKG -Repeat EKG no change -Tele monitoring -Cardiology to see the patient -Echo done, results reviewed -troponin trending down =Cath discussed with pt --she agrees-- Code(s): R74.8 - ABNORMAL LEVELS OF OTHER SERUM ENZYMES
--- NOTE | 2018-02-15 11:38 | PN ---
Progress Note (short form) - Note Progress Note: PULMONARY VSS/AFEBRILE ANICTERIC DISTANT BUT CLEAR S1S2 irregular BS+ MINIMAL B/L LOWER EXT EDEMA LABS/MEDS/NOTES/IMAGES REVIEWED UTI Sepsis Lactic Acidosis Acute Kidney Injury +Troponins/Demand Ischemia Pulmonary HTN Mitral Regurgitation HTN DM - continue antibiotics - f/u cultures - O2 to keep SPo2 >90% - inhaled bronchodilators as needed - pulmonary HTN likely secondary to mitral regurgitation - can get PFTs and PSG as outpt to r/o other causes - DVT prophylaxis Christos MURRY MD
--- NOTE | 2018-02-15 15:25 | PN ---
Progress Note (short form) - Note Progress Note: covering dr allred problems 1. SREE 2. UTI 3. sepsis 4. lymphoma 5. a-fib 6. htn Current Medications Acetaminophen (Tylenol -) 650 mg PO Q4H PRN PRN Reason: PAIN OR FEVER Albuterol/Ipratropium (Duoneb -) 1 amp NEB Q4H PRN PRN Reason: SHORTNESS OF BREATH Last Admin: 02/14/18 23:46 Dose: 1 amp Aspirin (Asa -) 81 mg PO DAILY [facility] Last Admin: 02/15/18 09:12 Dose: 81 mg Atorvastatin Calcium (Lipitor -) 20 mg PO HS [facility] Last Admin: 02/14/18 21:11 Dose: 20 mg Escitalopram Oxalate (Lexapro -) 10 mg PO DAILY [facility] Last Admin: 02/15/18 09:13 Dose: 10 mg Heparin Sodium (Porcine) (Heparin -) 1,000 unit IVPUSH PRN PRN PRN Reason: Heparin Last Admin: 02/14/18 22:38 Dose: 1,000 unit Heparin Sodium (Porcine) (Heparin -) 5,000 unit IVPUSH PRN PRN PRN Reason: Heparin Last Admin: 02/15/18 09:12 Dose: 5,000 unit Ceftriaxone Sodium 2 gm/ (Dextrose) 100 mls @ 200 mls/hr IVPB DAILY [facility]; Protocol Last Admin: 02/15/18 09:12 Dose: 200 mls/hr Heparin Sodium/Dextrose (Heparin Infusion -) 25,000 units in 500 mls @ 20 mls/ hr IVPB TITR [facility]; Protocol Last Titration: 02/15/18 09:13 Dose: 1,250 units/hr, 25 mls/hr Insulin Aspart (Novolog Vial Sliding Scale -) 1 vial SQ TIDAC [facility]; Protocol Last Admin: 02/15/18 11:13 Dose: Not Given Melatonin (Melatonin) 5 mg PO HS PRN PRN Reason: INSOMNIA Last Admin: 02/14/18 21:11 Dose: 5 mg Metoprolol Tartrate (Lopressor -) 25 mg PO BID [facility] Last Admin: 02/15/18 09:12 Dose: 25 mg Morphine Sulfate (Morphine Sulfate) 0.5 mg IVPUSH Q5M PRN PRN Reason: chest pain Nitroglycerin (Nitrostat -) 0.4 mg SL Q5M PRN PRN Reason: FOR CHEST PAIN Nystatin (Nystop Powder -) 1 applic TP DAILY [facility] Last Admin: 02/15/18 09:13 Dose: 1 applic Ondansetron HCl (Zofran Injection) 4 mg IVPUSH Q6H PRN PRN Reason: NAUSEA Last Admin: 02/14/18 23:01 Dose: 4 mg Sitagliptin Phosphate (Januvia -) 50 mg PO DAILY@0700 [facility] Last Admin: 02/15/18 06:35 Dose: 50 mg Tramadol HCl (Ultram -) 50 mg PO Q6H PRN PRN Reason: PAIN LEVEL 6-10 Last Vital Signs Temp Pulse Resp BP Pulse Ox 98.1 F 74 18 125/74 98 02/15/18 15:04 02/15/18 15:04 02/15/18 09:00 02/15/18 15:04 02/15/18 08:23 alert in nad lungs clear heart reg abd soft nontender ext no edema CBC, BMP 02/13/18 05:30 02/14/18 05:40 IMP- sree resolving mild prerenal lagging Plan- encourage hydration
--- NOTE | 2018-02-15 17:01 | PN ---
Progress Note, Physician History of Present Illness: seen and examined today in [facility]. several family members at bedside, discussed plan of care with them. - Current Medication List Current Medications: Active Medications Acetaminophen (Tylenol -) 650 mg PO Q4H PRN PRN Reason: PAIN OR FEVER Albuterol/Ipratropium (Duoneb -) 1 amp NEB Q4H PRN PRN Reason: SHORTNESS OF BREATH Last Admin: 02/14/18 23:46 Dose: 1 amp Aspirin (Asa -) 81 mg PO DAILY [facility] Last Admin: 02/15/18 09:12 Dose: 81 mg Atorvastatin Calcium (Lipitor -) 20 mg PO HS [facility] Last Admin: 02/14/18 21:11 Dose: 20 mg Escitalopram Oxalate (Lexapro -) 10 mg PO DAILY [facility] Last Admin: 02/15/18 09:13 Dose: 10 mg Heparin Sodium (Porcine) (Heparin -) 1,000 unit IVPUSH PRN PRN PRN Reason: Heparin Last Admin: 02/14/18 22:38 Dose: 1,000 unit Heparin Sodium (Porcine) (Heparin -) 5,000 unit IVPUSH PRN PRN PRN Reason: Heparin Last Admin: 02/15/18 09:12 Dose: 5,000 unit Ceftriaxone Sodium 2 gm/ (Dextrose) 100 mls @ 200 mls/hr IVPB DAILY [facility]; Protocol Last Admin: 02/15/18 09:12 Dose: 200 mls/hr Heparin Sodium/Dextrose (Heparin Infusion -) 25,000 units in 500 mls @ 20 mls/ hr IVPB TITR [facility]; Protocol Last Titration: 02/15/18 09:13 Dose: 1,250 units/hr, 25 mls/hr Insulin Aspart (Novolog Vial Sliding Scale -) 1 vial SQ TIDAC [facility]; Protocol Last Admin: 02/15/18 11:13 Dose: Not Given Melatonin (Melatonin) 5 mg PO HS PRN PRN Reason: INSOMNIA Last Admin: 02/14/18 21:11 Dose: 5 mg Metoprolol Tartrate (Lopressor -) 25 mg PO BID [facility] Last Admin: 02/15/18 09:12 Dose: 25 mg Nitroglycerin (Nitrostat -) 0.4 mg SL Q5M PRN PRN Reason: FOR CHEST PAIN Nystatin (Nystop Powder -) 1 applic TP DAILY [facility] Last Admin: 02/15/18 09:13 Dose: 1 applic Ondansetron HCl (Zofran Injection) 4 mg IVPUSH Q6H PRN PRN Reason: NAUSEA Last Admin: 02/14/18 23:01 Dose: 4 mg Sitagliptin Phosphate (Januvia -) 50 mg PO DAILY@0700 [facility] Last Admin: 02/15/18 06:35 Dose: 50 mg - Objective Vital Signs: Vital Signs Temperature 98.1 F 02/15/18 15:04 Pulse Rate 74 02/15/18 15:04 Respiratory Rate 18 02/15/18 09:00 Blood Pressure 125/74 02/15/18 15:04 O2 Sat by Pulse Oximetry (%) 98 02/15/18 08:23 Constitutional: Yes: No Distress, Calm Eyes: Yes: Conjunctiva Clear, EOM Intact, PERRL HENT: Yes: Atraumatic, Normocephalic Neck: Yes: Supple, Trachea Midline Cardiovascular: Yes: Regular Rate and Rhythm, S1, S2. No: Bradycardia, Tachycardia, Pulse Irregular, Bruit, JVD, Gallop, Murmur, Rub, S3, S4, Varicosities Respiratory: Yes: Regular, Diminished. No: Rales, Rhonchi, Wheezes Gastrointestinal: Yes: Normal Bowel Sounds, Soft. No: Distention, Tenderness Musculoskeletal: Yes: WNL Extremities: Yes: WNL Edema: No Peripheral Pulses WNL: Yes Peripheral Pulses: Left Doralis Pedis: 2+, Right Dorsalis Pedis: 2+ Neurological: Yes: Alert, Oriented Psychiatric: Yes: Alert, Oriented Labs: CBC, BMP 02/13/18 05:30 02/14/18 05:40 INR, PTT INR 1.16 (0.83-1.09) H 02/10/18 16:00 - ....Imaging Chest X-ray: Report Reviewed, Image Reviewed EKG: Report Reviewed, Image Reviewed Other: Report Reviewed, Image Reviewed (tele-af hr adequately controlled, no sig events recorded) Assessment/Plan 86 year old female with a PMH of lymphoma, htn, chol, chronic afib on xarelto who came to the ER for weakness, fever, chills nausea and vomiting x 3 days. Found with afib with RVR and ST changes and noted to have positive trops. 02/11/18 Rates ate controlled, no distress, Trops trending down. AFIB cont Metoprolol TARTRATE 25 mg PO Q12 hour Continue ASA 81 mg daily May not require adding back DIG cont heparin gtt in preparation for possible cardiac cath Elevated Trops Ischemia (type 2 [place]) Trended down, no further chest pain Echocardiogram noted New anterior and apical WMA as compared with 2015. Therefore would consider further cardiac workup and possibly invasive testing to assess for CAD. Would wait until off of antibiotics and would need to hold AC. Given the above echo findings which are new, will plan to transfer to [facility] for cardiac cath when infection is cleared and off ABX and once establish that creatinine stable and pt is optimized from a renal perspective for contrast. creatinine improved but bun still elevated. Unlikely pt will be ready for cath tomorrow, once off antibiotics and optimized from a renal perspective will plan for transfer for cath.
[2018-02-15] MEDS: HEPARIN INFUSION - 25,000 UNITS/500 ML INFUS.BAG IVPB SCH (18:04)
[2018-02-15] MEDS: MELATONIN 5 MG TABLETS PO PRN (21:09)
[2018-02-15] MEDS: ATORVASTATIN CA 20 MG TABLET (FP) PO SCH (21:09)
[2018-02-16] MEDS: INSULIN SLIDING SCALE (NOVOLOG) 1 VIAL SQ SCH ×3 (06:19→18:27)
[2018-02-16] MEDS: sitaGLIPtin PHOSPHATE 50 MG TABLET PO SCH (06:22)
[2018-02-16 07:55] LABS: HEMATOCRIT 38.6 % (32.4-45.2); HEMOGLOBIN 13.1 GM/dL (10.7-15.3); MCH 32.4 pg (25.7-33.7); MCHC 33.9 g/dl (32.0-36.0); MEAN CELL VOLUME 95.8 fl (80-96); MEAN PLT VOLUME 8.9 fl (7.5-11.1); PLATELET COUNT 236 K/MM3 (134-434); RBC 4.03 M/mm3 (3.60-5.2); RDW 14.8 % (11.6-15.6); WHITE BLOOD COUNT 9.3 K/mm3 (4.0-10.0)
[2018-02-16] MEDS ORDERED: DEXTROSE 5%-WATER 100 ML IVPB ONE (08:28)
[2018-02-16] MEDS: ASPIRIN 81 MG CHEWABLE TABLETS PO SCH (09:51)
[2018-02-16] MEDS: ESCITALOPRAM OXALATE 10 MG TABLET (FP) PO SCH (09:51)
[2018-02-16] MEDS: METOPROLOL TARTRATE 25 MG TABLET (FP) PO SCH ×2 (09:51→21:00)
[2018-02-16] MEDS: CEFTRIAXONE 2 GM in DEXTROSE 5%-WATER 100 ML IVPB SCH (09:52)
[2018-02-16] MEDS: NYSTATIN POWDER 100,000 UNITS/GM - 15 GM TOPICAL POWDER TP SCH (09:52)
--- NOTE | 2018-02-16 10:19 | PN ---
Progress Note, Physician - Current Medication List Current Medications: Active Medications Acetaminophen (Tylenol -) 650 mg PO Q4H PRN PRN Reason: PAIN OR FEVER Aspirin (Asa -) 81 mg PO DAILY [facility] Last Admin: 02/16/18 09:51 Dose: 81 mg Atorvastatin Calcium (Lipitor -) 20 mg PO HS [facility] Last Admin: 02/15/18 21:09 Dose: 20 mg Escitalopram Oxalate (Lexapro -) 10 mg PO DAILY [facility] Last Admin: 02/16/18 09:51 Dose: 10 mg Heparin Sodium (Porcine) (Heparin -) 1,000 unit IVPUSH PRN PRN PRN Reason: Heparin Last Admin: 02/14/18 22:38 Dose: 1,000 unit Heparin Sodium (Porcine) (Heparin -) 5,000 unit IVPUSH PRN PRN PRN Reason: Heparin Last Admin: 02/15/18 09:12 Dose: 5,000 unit Ceftriaxone Sodium 2 gm/ (Dextrose) 100 mls @ 200 mls/hr IVPB DAILY [facility]; Protocol Last Admin: 02/16/18 09:52 Dose: 200 mls/hr Heparin Sodium/Dextrose (Heparin Infusion -) 25,000 units in 500 mls @ 20 mls/ hr IVPB TITR [facility]; Protocol Last Titration: 02/16/18 03:41 Dose: 1,100 units/hr, 22 mls/hr Insulin Aspart (Novolog Vial Sliding Scale -) 1 vial SQ TIDAC [facility]; Protocol Last Admin: 02/16/18 06:19 Dose: Not Given Melatonin (Melatonin) 5 mg PO HS PRN PRN Reason: INSOMNIA Last Admin: 02/15/18 21:09 Dose: 5 mg Metoprolol Tartrate (Lopressor -) 25 mg PO BID [facility] Last Admin: 02/16/18 09:51 Dose: 25 mg Nitroglycerin (Nitrostat -) 0.4 mg SL Q5M PRN PRN Reason: FOR CHEST PAIN Nystatin (Nystop Powder -) 1 applic TP DAILY [facility] Last Admin: 02/16/18 09:52 Dose: 1 applic Ondansetron HCl (Zofran Injection) 4 mg IVPUSH Q6H PRN PRN Reason: NAUSEA Last Admin: 02/14/18 23:01 Dose: 4 mg Sitagliptin Phosphate (Januvia -) 50 mg PO DAILY@0700 [facility] Last Admin: 02/16/18 06:22 Dose: 50 mg - Objective Vital Signs: Vital Signs Temperature 98.4 F 02/16/18 05:00 Pulse Rate 65 02/16/18 05:00 Respiratory Rate 20 02/16/18 08:47 Blood Pressure 134/77 02/16/18 05:00 O2 Sat by Pulse Oximetry (%) 96 02/16/18 08:47 Cardiovascular: Yes: S1, S2 Respiratory: Yes: Regular, CTA Bilaterally Gastrointestinal: Yes: Normal Bowel Sounds, Soft Labs: CBC, BMP 02/16/18 06:30 02/14/18 05:40 INR, PTT INR 1.16 (0.83-1.09) H 02/10/18 16:00 Assessment/Plan - Problems (1) UTI (urinary tract infection) Assessment/Plan: -UA shows +2 blood -[facility] Microbiology 02/10/18 18:42 Urine Culture - Final Urine - Urine Clean Catch Escherichia Coli 02/11/18 17:30 VRE Culture - Preliminary Rectal Swab NO VREF ISOLATED 02/10/18 16:00 Blood Culture - Preliminary Blood - Peripheral Venous NO GROWTH OBTAINED AFTER 48 HOURS, INCUBATION TO CONTINUE FOR 3 DAYS. 02/10/18 16:00 Blood Culture - Preliminary Blood - Peripheral Venous NO GROWTH OBTAINED AFTER 48 HOURS, INCUBATION TO CONTINUE FOR 3 DAYS. -No Urinary symptoms -afebrile today -Seen by ID -On IV Rocephin 2 gm IVPB daily Code(s): N39.0 - URINARY TRACT INFECTION, SITE NOT SPECIFIED (2) Atrial fibrillation Assessment/Plan: -Chronic -Controlled at this time -Had HASMUKH upon admission -tele monitoring -Xarelto 20 mg po daily -Cardiology consult Code(s): I48.91 - UNSPECIFIED ATRIAL FIBRILLATION Qualifiers: Atrial fibrillation type: chronic Qualified Code(s): I48.2 - Chronic atrial fibrillation (3) Diabetes Assessment/Plan: -A1C at 7.0 -On Januvia -BGM ACHS -Novolog sliding scale TID AC -low sodium diabetic diet Code(s): E11.9 - TYPE 2 DIABETES MELLITUS WITHOUT COMPLICATIONS Qualifiers: Diabetes mellitus type: type 2 (4) Lymphoma Assessment/Plan: -in remission Code(s): C85.90 - NON-HODGKIN LYMPHOMA, UNSPECIFIED, UNSPECIFIED SITE (5) Nausea and vomiting Assessment/Plan: -resolved -Zofran 4 mg IVP Q6H PRN -start low sodium diabetic diet Code(s): R11.2 - NAUSEA WITH VOMITING, UNSPECIFIED Qualifiers: Vomiting type: unspecified Vomiting Intractability: non-intractable Qualified Code(s): R11.2 - Nausea with vomiting, unspecified (6) Elevated troponin I level Assessment/Plan: -Earlier changes in EKG -Repeat EKG no change -Tele monitoring -Cardiology to see the patient -Echo done, results reviewed -troponin trending down =Cath discussed with pt --she agrees-- Code(s): R74.8 - ABNORMAL LEVELS OF OTHER SERUM ENZYMES
--- NOTE | 2018-02-16 13:35 | PN ---
Progress Note, Physician History of Present Illness: PULMONARY ALERT,FEELING BETTER,-RESP DISTRESS - Current Medication List Current Medications: Active Medications Acetaminophen (Tylenol -) 650 mg PO Q4H PRN PRN Reason: PAIN OR FEVER Aspirin (Asa -) 81 mg PO DAILY [facility] Last Admin: 02/16/18 09:51 Dose: 81 mg Atorvastatin Calcium (Lipitor -) 20 mg PO HS [facility] Last Admin: 02/15/18 21:09 Dose: 20 mg Escitalopram Oxalate (Lexapro -) 10 mg PO DAILY [facility] Last Admin: 02/16/18 09:51 Dose: 10 mg Heparin Sodium (Porcine) (Heparin -) 1,000 unit IVPUSH PRN PRN PRN Reason: Heparin Last Admin: 02/14/18 22:38 Dose: 1,000 unit Heparin Sodium (Porcine) (Heparin -) 5,000 unit IVPUSH PRN PRN PRN Reason: Heparin Last Admin: 02/15/18 09:12 Dose: 5,000 unit Ceftriaxone Sodium 2 gm/ (Dextrose) 100 mls @ 200 mls/hr IVPB DAILY [facility]; Protocol Last Admin: 02/16/18 09:52 Dose: 200 mls/hr Heparin Sodium/Dextrose (Heparin Infusion -) 25,000 units in 500 mls @ 20 mls/ hr IVPB TITR [facility]; Protocol Last Titration: 02/16/18 03:41 Dose: 1,100 units/hr, 22 mls/hr Insulin Aspart (Novolog Vial Sliding Scale -) 1 vial SQ TIDAC [facility]; Protocol Last Admin: 02/16/18 12:57 Dose: Not Given Melatonin (Melatonin) 5 mg PO HS PRN PRN Reason: INSOMNIA Last Admin: 02/15/18 21:09 Dose: 5 mg Metoprolol Tartrate (Lopressor -) 25 mg PO BID [facility] Last Admin: 02/16/18 09:51 Dose: 25 mg Nitroglycerin (Nitrostat -) 0.4 mg SL Q5M PRN PRN Reason: FOR CHEST PAIN Nystatin (Nystop Powder -) 1 applic TP DAILY [facility] Last Admin: 02/16/18 09:52 Dose: 1 applic Ondansetron HCl (Zofran Injection) 4 mg IVPUSH Q6H PRN PRN Reason: NAUSEA Last Admin: 02/14/18 23:01 Dose: 4 mg Sitagliptin Phosphate (Januvia -) 50 mg PO DAILY@0700 [facility] Last Admin: 02/16/18 06:22 Dose: 50 mg - Objective Vital Signs: Vital Signs Temperature 97.7 F 02/16/18 09:00 Pulse Rate 78 02/16/18 09:00 Respiratory Rate 18 02/16/18 09:00 Blood Pressure 125/66 02/16/18 09:00 O2 Sat by Pulse Oximetry (%) 96 02/16/18 08:47 Constitutional: Yes: Well Nourished, Calm Eyes: Yes: WNL HENT: Yes: WNL Neck: Yes: WNL Cardiovascular: Yes: Pulse Irregular, S1, S2 Respiratory: Yes: Diminished Gastrointestinal: Yes: Normal Bowel Sounds, Soft Extremities: Yes: WNL Edema: No Labs: CBC, BMP 02/16/18 06:30 INR, PTT INR 1.16 (0.83-1.09) H 02/10/18 16:00 Problem List - Problems (1) SREE (acute kidney injury) Code(s): N17.9 - ACUTE KIDNEY FAILURE, UNSPECIFIED (2) Atrial fibrillation Code(s): I48.91 - UNSPECIFIED ATRIAL FIBRILLATION Qualifiers: Atrial fibrillation type: chronic Qualified Code(s): I48.2 - Chronic atrial fibrillation (3) Demand ischemia Code(s): I24.8 - OTHER FORMS OF ACUTE ISCHEMIC HEART DISEASE (4) Elevated troponin I level Code(s): R74.8 - ABNORMAL LEVELS OF OTHER SERUM ENZYMES (5) Pulmonary hypertension Code(s): I27.20 - PULMONARY HYPERTENSION, UNSPECIFIED (6) Sepsis Code(s): A41.9 - SEPSIS, UNSPECIFIED ORGANISM (7) UTI (urinary tract infection) Code(s): N39.0 - URINARY TRACT INFECTION, SITE NOT SPECIFIED (8) HTN (hypertension) Code(s): I10 - ESSENTIAL (PRIMARY) HYPERTENSION Qualifiers: Hypertension type: essential hypertension Qualified Code(s): I10 - Essential (primary) hypertension Assessment/Plan UTI Sepsis Lactic Acidosis Acute Kidney Injury +Troponins/Demand Ischemia Pulmonary HTN Mitral Regurgitation HTN DM ASHD AFIB - O2 to keep SPo2 >90% - inhaled bronchodilators as needed - pulmonary HTN likely secondary to mitral regurgitation - PFTs and PSG as outpt to r/o other causes - DVT prophylaxis - ? card cath - ac DR BEAL
--- NOTE | 2018-02-16 14:21 | PN ---
Progress Note, Physician Chief Complaint: no further chest pain tele neg History of Present Illness: 86 year old female with a PMH of lymphoma, htn, chol, chronic afib on xarelto who came to the ER for weakness, fever, chills nausea and vomiting x 3 days. Found with afib with RVR and ST changes and noted to have positive trops. 02/11/18 Rates ate controlled, no distress, Trops trending down. getting ceftriaxone until 02/17/18. Echo 02/11/18: apical and aw akinesis. - Current Medication List Current Medications: Active Medications Acetaminophen (Tylenol -) 650 mg PO Q4H PRN PRN Reason: PAIN OR FEVER Aspirin (Asa -) 81 mg PO DAILY [facility] Last Admin: 02/16/18 09:51 Dose: 81 mg Atorvastatin Calcium (Lipitor -) 20 mg PO HS [facility] Last Admin: 02/15/18 21:09 Dose: 20 mg Escitalopram Oxalate (Lexapro -) 10 mg PO DAILY [facility] Last Admin: 02/16/18 09:51 Dose: 10 mg Heparin Sodium (Porcine) (Heparin -) 1,000 unit IVPUSH PRN PRN PRN Reason: Heparin Last Admin: 02/14/18 22:38 Dose: 1,000 unit Heparin Sodium (Porcine) (Heparin -) 5,000 unit IVPUSH PRN PRN PRN Reason: Heparin Last Admin: 02/15/18 09:12 Dose: 5,000 unit Ceftriaxone Sodium 2 gm/ (Dextrose) 100 mls @ 200 mls/hr IVPB DAILY [facility]; Protocol Last Admin: 02/16/18 09:52 Dose: 200 mls/hr Heparin Sodium/Dextrose (Heparin Infusion -) 25,000 units in 500 mls @ 20 mls/ hr IVPB TITR [facility]; Protocol Last Titration: 02/16/18 03:41 Dose: 1,100 units/hr, 22 mls/hr Insulin Aspart (Novolog Vial Sliding Scale -) 1 vial SQ TIDAC [facility]; Protocol Last Admin: 02/16/18 12:57 Dose: Not Given Melatonin (Melatonin) 5 mg PO HS PRN PRN Reason: INSOMNIA Last Admin: 02/15/18 21:09 Dose: 5 mg Metoprolol Tartrate (Lopressor -) 25 mg PO BID [facility] Last Admin: 02/16/18 09:51 Dose: 25 mg Nitroglycerin (Nitrostat -) 0.4 mg SL Q5M PRN PRN Reason: FOR CHEST PAIN Nystatin (Nystop Powder -) 1 applic TP DAILY [facility] Last Admin: 02/16/18 09:52 Dose: 1 applic Ondansetron HCl (Zofran Injection) 4 mg IVPUSH Q6H PRN PRN Reason: NAUSEA Last Admin: 02/14/18 23:01 Dose: 4 mg Sitagliptin Phosphate (Januvia -) 50 mg PO DAILY@0700 [facility] Last Admin: 02/16/18 06:22 Dose: 50 mg - Objective Vital Signs: Vital Signs Temperature 98 F 02/16/18 14:15 Pulse Rate 69 02/16/18 14:15 Respiratory Rate 20 02/16/18 14:15 Blood Pressure 102/69 02/16/18 14:15 O2 Sat by Pulse Oximetry (%) 96 02/16/18 08:47 Constitutional: Yes: No Distress, Calm Eyes: Yes: Conjunctiva Clear, EOM Intact HENT: Yes: Atraumatic, Normocephalic Neck: Yes: Supple, Trachea Midline Cardiovascular: Yes: Pulse Irregular Respiratory: Yes: Regular, CTA Bilaterally Gastrointestinal: Yes: Normal Bowel Sounds, Soft Genitourinary: Yes: WNL Musculoskeletal: Yes: WNL Extremities: Yes: WNL Edema: No Peripheral Pulses WNL: Yes Labs: CBC, BMP 02/16/18 06:30 02/14/18 05:40 INR, PTT INR 1.16 (0.83-1.09) H 02/10/18 16:00 Problem List - Problems (1) Atrial fibrillation Assessment/Plan: AFIB cont Metoprolol TARTRATE 25 mg PO Q12 hour Continue ASA 81 mg daily May not require adding back DIG cont heparin gtt in preparation for possible cardiac cath Elevated Trops Ischemia (type 2 PR) Trended down, no further chest pain Echocardiogram noted New anterior and apical WMA as compared with 2015. Therefore would consider further cardiac workup and possibly invasive testing to assess for CAD. Would wait until off of antibiotics and would need to hold AC. Given the above echo findings which are new, will plan to transfer to [facility] for cardiac cath when infection is cleared and off ABX and once establish that creatinine stable and pt is optimized from a renal perspective for contrast. creatinine improved but bun still elevated. once off antibiotics and optimized from a renal perspective will plan for transfer for cath. Code(s): I48.91 - UNSPECIFIED ATRIAL FIBRILLATION Qualifiers: Atrial fibrillation type: chronic Qualified Code(s): I48.2 - Chronic atrial fibrillation
--- NOTE | 2018-02-16 14:55 | PN ---
Progress Note, Physician History of Present Illness: Pt seen and examined at bedside. She is awake and alert. She denies shortness of breath. - Current Medication List Current Medications: Active Medications Acetaminophen (Tylenol -) 650 mg PO Q4H PRN PRN Reason: PAIN OR FEVER Aspirin (Asa -) 81 mg PO DAILY [facility] Last Admin: 02/16/18 09:51 Dose: 81 mg Atorvastatin Calcium (Lipitor -) 20 mg PO HS [facility] Last Admin: 02/15/18 21:09 Dose: 20 mg Escitalopram Oxalate (Lexapro -) 10 mg PO DAILY [facility] Last Admin: 02/16/18 09:51 Dose: 10 mg Heparin Sodium (Porcine) (Heparin -) 1,000 unit IVPUSH PRN PRN PRN Reason: Heparin Last Admin: 02/14/18 22:38 Dose: 1,000 unit Heparin Sodium (Porcine) (Heparin -) 5,000 unit IVPUSH PRN PRN PRN Reason: Heparin Last Admin: 02/15/18 09:12 Dose: 5,000 unit Ceftriaxone Sodium 2 gm/ (Dextrose) 100 mls @ 200 mls/hr IVPB DAILY [facility]; Protocol Last Admin: 02/16/18 09:52 Dose: 200 mls/hr Heparin Sodium/Dextrose (Heparin Infusion -) 25,000 units in 500 mls @ 20 mls/ hr IVPB TITR [facility]; Protocol Last Titration: 02/16/18 03:41 Dose: 1,100 units/hr, 22 mls/hr Insulin Aspart (Novolog Vial Sliding Scale -) 1 vial SQ TIDAC [facility]; Protocol Last Admin: 02/16/18 12:57 Dose: Not Given Melatonin (Melatonin) 5 mg PO HS PRN PRN Reason: INSOMNIA Last Admin: 02/15/18 21:09 Dose: 5 mg Metoprolol Tartrate (Lopressor -) 25 mg PO BID [facility] Last Admin: 02/16/18 09:51 Dose: 25 mg Nitroglycerin (Nitrostat -) 0.4 mg SL Q5M PRN PRN Reason: FOR CHEST PAIN Nystatin (Nystop Powder -) 1 applic TP DAILY [facility] Last Admin: 02/16/18 09:52 Dose: 1 applic Ondansetron HCl (Zofran Injection) 4 mg IVPUSH Q6H PRN PRN Reason: NAUSEA Last Admin: 02/14/18 23:01 Dose: 4 mg Sitagliptin Phosphate (Januvia -) 50 mg PO DAILY@0700 [facility] Last Admin: 02/16/18 06:22 Dose: 50 mg - Objective Vital Signs: Vital Signs Temperature 98 F 02/16/18 14:15 Pulse Rate 69 02/16/18 14:15 Respiratory Rate 20 02/16/18 14:15 Blood Pressure 102/69 02/16/18 14:15 O2 Sat by Pulse Oximetry (%) 96 02/16/18 08:47 Constitutional: Yes: Calm Eyes: Yes: Conjunctiva Clear HENT: Yes: Atraumatic Cardiovascular: Yes: S1, S2 Respiratory: Yes: CTA Bilaterally Gastrointestinal: Yes: Soft, Abdomen, Obese Genitourinary: Yes: WNL Musculoskeletal: Yes: WNL Edema: Yes Edema: LLE: Trace, RLE: Trace Neurological: Yes: Oriented Psychiatric: Yes: Oriented Labs: CBC, BMP 02/16/18 06:30 02/14/18 05:40 INR, PTT INR 1.16 (0.83-1.09) H 02/10/18 16:00 - ....Imaging Ultrasound: Report Reviewed Problem List - Problems (1) SREE (acute kidney injury) Code(s): N17.9 - ACUTE KIDNEY FAILURE, UNSPECIFIED (2) Atrial fibrillation Code(s): I48.91 - UNSPECIFIED ATRIAL FIBRILLATION Qualifiers: Atrial fibrillation type: chronic Qualified Code(s): I48.2 - Chronic atrial fibrillation (3) Mitral regurgitation Code(s): I34.0 - NONRHEUMATIC MITRAL (VALVE) INSUFFICIENCY (4) Sepsis Code(s): A41.9 - SEPSIS, UNSPECIFIED ORGANISM (5) UTI (urinary tract infection) Code(s): N39.0 - URINARY TRACT INFECTION, SITE NOT SPECIFIED Assessment/Plan Current Medications Generic Name Dose Route Start Last Admin Trade Name Freq PRN Reason Stop Dose Admin Acetaminophen 650 mg 02/11/18 10:04 Tylenol - PO Q4H PRN PAIN OR FEVER Aspirin 81 mg 02/11/18 10:00 02/16/18 09:51 Asa - PO 81 mg DAILY [facility] Administration Atorvastatin Calcium 20 mg 02/11/18 22:00 02/15/18 21:09 Lipitor - PO 20 mg HS [facility] Administration Escitalopram Oxalate 10 mg 02/11/18 12:00 02/16/18 09:51 Lexapro - PO 10 mg DAILY [facility] Administration Heparin Sodium (Porcine) 1,000 unit 02/14/18 17:28 02/14/18 22:38 Heparin - IVPUSH 1,000 unit PRN PRN Administration Heparin Heparin Sodium (Porcine) 5,000 unit 02/14/18 17:28 02/15/18 09:12 Heparin - IVPUSH 5,000 unit PRN PRN Administration Heparin Ceftriaxone Sodium 2 gm/ 100 mls @ 200 mls/hr 02/11/18 12:15 02/16/18 09:52 Dextrose IVPB 200 mls/hr DAILY [facility] Administration Protocol Heparin Sodium/Dextrose 25,000 units in 500 mls @ 20 mls/hr 02/14/18 17:30 03:41 Heparin Infusion - IVPB 1,100 units/hr TITR [facility] 22 mls/hr Titration Protocol 1,000 UNITS/HR Insulin Aspart 1 vial 02/11/18 16:30 02/16/18 12:57 Novolog Vial Sliding Scale - SQ Not Given TIDAC [facility] Protocol Melatonin 5 mg 02/13/18 22:29 02/15/18 21:09 Melatonin PO 5 mg HS PRN Administration INSOMNIA Metoprolol Tartrate 25 mg 02/14/18 22:00 02/16/18 09:51 Lopressor - PO 25 mg BID [facility] Administration Nitroglycerin 0.4 mg 02/11/18 10:03 Nitrostat - SL Q5M PRN FOR CHEST PAIN Nystatin 1 applic 02/11/18 14:00 02/16/18 09:52 Nystop Powder - TP 1 applic DAILY [facility] Administration Ondansetron HCl 4 mg 02/10/18 20:29 02/14/18 23:01 Zofran Injection IVPUSH 4 mg Q6H PRN Administration NAUSEA Sitagliptin Phosphate 50 mg 02/11/18 12:00 02/16/18 06:22 Januvia - PO 50 mg DAILY@0700 [facility] Administration Laboratory Tests 02/14/18 18:00 Urine Protein Negative Urine Glucose (UA) Negative Urine Ketones Negative Urine Blood Negative Urine Nitrite Negative Impression 1. SREE 2. UTI 3. sepsis 4. lymphoma 5. a-fib 6. htn Plan - renal function is improved - cont to monitor - cont abx - repeat ua is improved - repeat bmp in am Dr Wiggins
[2018-02-16] MEDS: HEPARIN INFUSION - 25,000 UNITS/500 ML INFUS.BAG IVPB SCH (18:27)
--- NOTE | 2018-02-16 18:55 | PN ---
Progress Note, Physician History of Present Illness: Awake, alert Supine in bed No complaints Denies chest pain/ dyspnea/ cough No c/o dysuria Afebrile WBC WNL - Current Medication List Current Medications: Active Medications Acetaminophen (Tylenol -) 650 mg PO Q4H PRN PRN Reason: PAIN OR FEVER Aspirin (Asa -) 81 mg PO DAILY [facility] Last Admin: 02/16/18 09:51 Dose: 81 mg Atorvastatin Calcium (Lipitor -) 20 mg PO HS [facility] Last Admin: 02/15/18 21:09 Dose: 20 mg Escitalopram Oxalate (Lexapro -) 10 mg PO DAILY [facility] Last Admin: 02/16/18 09:51 Dose: 10 mg Heparin Sodium (Porcine) (Heparin -) 1,000 unit IVPUSH PRN PRN PRN Reason: Heparin Last Admin: 02/14/18 22:38 Dose: 1,000 unit Heparin Sodium (Porcine) (Heparin -) 5,000 unit IVPUSH PRN PRN PRN Reason: Heparin Last Admin: 02/15/18 09:12 Dose: 5,000 unit Ceftriaxone Sodium 2 gm/ (Dextrose) 100 mls @ 200 mls/hr IVPB DAILY [facility]; Protocol Last Admin: 02/16/18 09:52 Dose: 200 mls/hr Heparin Sodium/Dextrose (Heparin Infusion -) 25,000 units in 500 mls @ 20 mls/ hr IVPB TITR [facility]; Protocol Last Admin: 02/16/18 18:27 Dose: 1,100 units/hr, 22 mls/hr Insulin Aspart (Novolog Vial Sliding Scale -) 1 vial SQ TIDAC [facility]; Protocol Last Admin: 02/16/18 18:27 Dose: Not Given Melatonin (Melatonin) 5 mg PO HS PRN PRN Reason: INSOMNIA Last Admin: 02/15/18 21:09 Dose: 5 mg Metoprolol Tartrate (Lopressor -) 25 mg PO BID [facility] Last Admin: 02/16/18 09:51 Dose: 25 mg Nitroglycerin (Nitrostat -) 0.4 mg SL Q5M PRN PRN Reason: FOR CHEST PAIN Nystatin (Nystop Powder -) 1 applic TP DAILY [facility] Last Admin: 02/16/18 09:52 Dose: 1 applic Ondansetron HCl (Zofran Injection) 4 mg IVPUSH Q6H PRN PRN Reason: NAUSEA Last Admin: 02/14/18 23:01 Dose: 4 mg Sitagliptin Phosphate (Januvia -) 50 mg PO DAILY@0700 [facility] Last Admin: 02/16/18 06:22 Dose: 50 mg - Objective Vital Signs: Vital Signs Temperature 97.5 F L 02/16/18 17:00 Pulse Rate 77 02/16/18 17:00 Respiratory Rate 20 02/16/18 17:00 Blood Pressure 118/79 02/16/18 17:00 O2 Sat by Pulse Oximetry (%) 96 02/16/18 08:47 Constitutional: Yes: No Distress, Obese Cardiovascular: Yes: Regular Rate and Rhythm, S1, S2 Respiratory: Yes: CTA Bilaterally Gastrointestinal: Yes: Normal Bowel Sounds, Soft. No: Tenderness Edema: No Labs: CBC, BMP 02/16/18 06:30 02/14/18 05:40 INR, PTT INR 1.16 (0.83-1.09) H 02/10/18 16:00 Assessment/Plan UTI/ possible sepsis secondary to UTI Fever/ leukocytosis resolved ? DC Lactic acidosis- resolved Azotemia D/C antibiotics Observe off
[2018-02-16] MEDS: ATORVASTATIN CA 20 MG TABLET (FP) PO SCH (21:01)
[2018-02-16] MEDS: MELATONIN 5 MG TABLETS PO PRN (21:01)
[2018-02-17] MEDS: INSULIN SLIDING SCALE (NOVOLOG) 1 VIAL SQ SCH ×3 (06:37→17:06)
[2018-02-17] MEDS: sitaGLIPtin PHOSPHATE 50 MG TABLET PO SCH (06:41)
[2018-02-17 06:45] LABS: HEMATOCRIT 38.5 % (32.4-45.2); HEMOGLOBIN 12.8 GM/dL (10.7-15.3); MCH 31.9 pg (25.7-33.7); MCHC 33.3 g/dl (32.0-36.0); MEAN CELL VOLUME 95.8 fl (80-96); MEAN PLT VOLUME 8.3 fl (7.5-11.1); PLATELET COUNT 240 K/MM3 (134-434); RBC 4.02 M/mm3 (3.60-5.2); RDW 14.5 % (11.6-15.6); WHITE BLOOD COUNT 9.7 K/mm3 (4.0-10.0)
[2018-02-17] MEDS: ASPIRIN 81 MG CHEWABLE TABLETS PO SCH (09:08)
[2018-02-17] MEDS: ESCITALOPRAM OXALATE 10 MG TABLET (FP) PO SCH (09:09)
[2018-02-17] MEDS: METOPROLOL TARTRATE 25 MG TABLET (FP) PO SCH ×2 (09:09→22:02)
[2018-02-17] MEDS: NYSTATIN POWDER 100,000 UNITS/GM - 15 GM TOPICAL POWDER TP SCH (09:09)
--- NOTE | 2018-02-17 09:39 | DS ---
Physical Examination Vital Signs: Vital Signs Temperature 98 F 02/17/18 09:00 Pulse Rate 74 02/17/18 09:00 Respiratory Rate 20 02/17/18 09:00 Blood Pressure 133/74 02/17/18 09:00 O2 Sat by Pulse Oximetry (%) 96 02/17/18 09:00 Findings/Remarks: 87yo female with h/o HTN, hyperlipidemia, atrial fibrillation on anticoagulation , lymphoma s/p chemo who was admitted with nausea and fevers. Found to have a UTI, started on antibiotics. Denies chest pain but with some shortness of breath. +troponins on bloodwork, evaluated by cardiology who suspects demand ischemia. Denies cough or wheezing. She is a remote smoker, never a heavy smoker. She denies being a snorer, does wake up at night from unknown reasons. Lives alone. Labs: CBC, BMP 02/17/18 05:30 02/14/18 05:40 Discharge Summary Reason For Visit: ELEVATED TROPONIN I LEVEL,ATRIAL FIBRILATION, Current Active Problems SREE (acute kidney injury) (Acute) Atrial fibrillation (Acute) Demand ischemia (Acute) Elevated troponin I level (Acute) Mitral regurgitation (Acute) Pulmonary hypertension (Acute) Sepsis (Acute) UTI (urinary tract infection) (Acute) Hospital Course: - Problems (1) UTI (urinary tract infection) Assessment/Plan: -UA shows +2 blood -[facility] Microbiology 02/10/18 18:42 Urine Culture - Final Urine - Urine Clean Catch Escherichia Coli 02/11/18 17:30 VRE Culture - Preliminary Rectal Swab NO VREF ISOLATED 02/10/18 16:00 Blood Culture - Preliminary Blood - Peripheral Venous NO GROWTH OBTAINED AFTER 48 HOURS, INCUBATION TO CONTINUE FOR 3 DAYS. 02/10/18 16:00 Blood Culture - Preliminary Blood - Peripheral Venous NO GROWTH OBTAINED AFTER 48 HOURS, INCUBATION TO CONTINUE FOR 3 DAYS. -No Urinary symptoms -afebrile today -Seen by ID -On IV Rocephin 2 gm IVPB daily--Off abx Code(s): N39.0 - URINARY TRACT INFECTION, SITE NOT SPECIFIED (2) Atrial fibrillation Assessment/Plan: -Chronic -Controlled at this time -Had HASMUKH upon admission -tele monitoring -Xarelto 20 mg po daily -Cardiology consult Code(s): I48.91 - UNSPECIFIED ATRIAL FIBRILLATION Qualifiers: Atrial fibrillation type: chronic Qualified Code(s): I48.2 - Chronic atrial fibrillation (3) Diabetes Assessment/Plan: -A1C at 7.0 -On Januvia -BGM ACHS -Novolog sliding scale TID AC -low sodium diabetic diet Code(s): E11.9 - TYPE 2 DIABETES MELLITUS WITHOUT COMPLICATIONS Qualifiers: Diabetes mellitus type: type 2 (4) Lymphoma Assessment/Plan: -in remission Code(s): C85.90 - NON-HODGKIN LYMPHOMA, UNSPECIFIED, UNSPECIFIED SITE (5) Nausea and vomiting Assessment/Plan: -resolved -On low sodium diabetic diet Code(s): R11.2 - NAUSEA WITH VOMITING, UNSPECIFIED Qualifiers: Vomiting type: unspecified Vomiting Intractability: non-intractable Qualified Code(s): R11.2 - Nausea with vomiting, unspecified (6) Elevated troponin I level Assessment/Plan: -Cardiology on Board -Echo done, results reviewed -troponin trending down =Cath discussed with pt --she agrees--for transfer to [facility] Code(s): R74.8 - ABNORMAL LEVELS OF OTHER SERUM ENZYMES Condition: Improved - Instructions Referrals: Ila Garcia MD [Primary Care Provider] - 2 Weeks Disposition: TRANSFER ACUTE CARE/OTHER HOSP - Home Medications Comprehensive Discharge Medication List: Ambulatory Orders Acetaminophen [Tylenol .Regular Strength -] 650 mg PO Q4H PRN tablet 02/17/18 Albuterol 2.5/Ipratropium 0.5 [Duoneb -] 1 amp NEB Q4H PRN amp 02/17/18 Aspirin [ASA -] 81 mg PO DAILY tab.chew 02/17/18 Atorvastatin Ca [Lipitor] 20 mg PO HS tablet 02/17/18 Escitalopram Oxalate [Lexapro -] 10 mg PO DAILY tablet 02/17/18 Heparin - 5,000 unit IVPUSH PRN PRN vial 02/17/18 Insulin Sliding Scale [Novolog Vial Sliding Scale -] 1 vial SQ TIDAC units Melatonin 5 mg PO HS PRN tab 02/17/18 Metoprolol Tartrate [Lopressor -] 25 mg PO BID tablet 02/17/18 Nitroglycerin Sublingual [Nitrostat -] 0.4 mg SL Q5M PRN tab 02/17/18 Nystatin Powder [Nystop Powder -] 1 applic TP DAILY applic 02/17/18 Sitagliptin Phosphate [Januvia -] 50 mg PO DAILY@0700 tablet 02/17/18
--- NOTE | 2018-02-17 09:55 | PN ---
Progress Note, Physician History of Present Illness: pulmonary alert,feels weaik,-cp,-sob - Current Medication List Current Medications: Active Medications Acetaminophen (Tylenol -) 650 mg PO Q4H PRN PRN Reason: PAIN OR FEVER Aspirin (Asa -) 81 mg PO DAILY [facility] Last Admin: 02/17/18 09:08 Dose: 81 mg Atorvastatin Calcium (Lipitor -) 20 mg PO HS [facility] Last Admin: 02/16/18 21:01 Dose: 20 mg Escitalopram Oxalate (Lexapro -) 10 mg PO DAILY [facility] Last Admin: 02/17/18 09:09 Dose: 10 mg Heparin Sodium (Porcine) (Heparin -) 1,000 unit IVPUSH PRN PRN PRN Reason: Heparin Last Admin: 02/14/18 22:38 Dose: 1,000 unit Heparin Sodium (Porcine) (Heparin -) 5,000 unit IVPUSH PRN PRN PRN Reason: Heparin Last Admin: 02/15/18 09:12 Dose: 5,000 unit Heparin Sodium/Dextrose (Heparin Infusion -) 25,000 units in 500 mls @ 20 mls/ hr IVPB TITR [facility]; Protocol Last Admin: 02/16/18 18:27 Dose: 1,100 units/hr, 22 mls/hr Insulin Aspart (Novolog Vial Sliding Scale -) 1 vial SQ TIDAC [facility]; Protocol Last Admin: 02/17/18 06:37 Dose: Not Given Melatonin (Melatonin) 5 mg PO HS PRN PRN Reason: INSOMNIA Last Admin: 02/16/18 21:01 Dose: 5 mg Metoprolol Tartrate (Lopressor -) 25 mg PO BID [facility] Last Admin: 02/17/18 09:09 Dose: 25 mg Nitroglycerin (Nitrostat -) 0.4 mg SL Q5M PRN PRN Reason: FOR CHEST PAIN Nystatin (Nystop Powder -) 1 applic TP DAILY [facility] Last Admin: 02/17/18 09:09 Dose: 1 applic Ondansetron HCl (Zofran Injection) 4 mg IVPUSH Q6H PRN PRN Reason: NAUSEA Last Admin: 02/14/18 23:01 Dose: 4 mg Sitagliptin Phosphate (Januvia -) 50 mg PO DAILY@0700 [facility] Last Admin: 02/17/18 06:41 Dose: 50 mg - Objective Vital Signs: Vital Signs Temperature 98 F 02/17/18 09:00 Pulse Rate 74 02/17/18 09:00 Respiratory Rate 20 02/17/18 09:00 Blood Pressure 133/74 02/17/18 09:00 O2 Sat by Pulse Oximetry (%) 96 02/17/18 09:00 Constitutional: Yes: Well Nourished, Calm Eyes: Yes: WNL HENT: Yes: WNL Neck: Yes: WNL Cardiovascular: Yes: Pulse Irregular, S1, S2 Respiratory: Yes: Rales (bibasailar crackles) Gastrointestinal: Yes: Normal Bowel Sounds, Soft Extremities: Yes: WNL Edema: No Labs: CBC, BMP 02/17/18 05:30 Problem List - Problems (1) SREE (acute kidney injury) Code(s): N17.9 - ACUTE KIDNEY FAILURE, UNSPECIFIED (2) Atrial fibrillation Code(s): I48.91 - UNSPECIFIED ATRIAL FIBRILLATION Qualifiers: Atrial fibrillation type: chronic Qualified Code(s): I48.2 - Chronic atrial fibrillation (3) Demand ischemia Code(s): I24.8 - OTHER FORMS OF ACUTE ISCHEMIC HEART DISEASE (4) Elevated troponin I level Code(s): R74.8 - ABNORMAL LEVELS OF OTHER SERUM ENZYMES (5) Pulmonary hypertension Code(s): I27.20 - PULMONARY HYPERTENSION, UNSPECIFIED (6) Sepsis Code(s): A41.9 - SEPSIS, UNSPECIFIED ORGANISM (7) UTI (urinary tract infection) Code(s): N39.0 - URINARY TRACT INFECTION, SITE NOT SPECIFIED (8) HTN (hypertension) Code(s): I10 - ESSENTIAL (PRIMARY) HYPERTENSION Qualifiers: Hypertension type: essential hypertension Qualified Code(s): I10 - Essential (primary) hypertension Assessment/Plan UTI Sepsis Lactic Acidosis Acute Kidney Injury +Troponins/Demand Ischemia Pulmonary HTN Mitral Regurgitation HTN DM ASHD AFIB - O2 to keep SPo2 >90% - inhaled bronchodilators as needed - pulmonary HTN likely secondary to mitral regurgitation - PFTs and PSG as outpt to r/o other causes - DVT prophylaxis - ? card cath - ac DR BEAL
[2018-02-17 10:11] LABS: INR 1.13 (0.83-1.09); PROTHROMBIN TIME (PATIENT) 12.8 SEC (9.7-13.0)
[2018-02-17 10:20] LABS: ALBUMIN 2.9 g/dl (3.4-5.0); ALK PHOS 44 U/L (45-117); ANION GAP 6 (8-16); BILIRUBIN,TOTAL 0.3 mg/dL (0.2-1.0); BLOOD UREA NITROGEN 28 mg/dL (7-18); CHLORIDE 98 mmol/L (98-107); CO2 35 mmol/L (21-32); CREATININE 0.9 mg/dL (0.55-1.02); GLUCOSE,RANDOM 120 mg/dL (74-106); MAGNESIUM 1.9 mg/dL (1.8-2.4); POTASSIUM 4.2 mmol/L (3.5-5.1); SGOT/AST 31 U/L (15-37); SGPT/ALT 38 U/L (12-78); SODIUM 139 mmol/L (136-145); TOT PROT 6.4 g/dl (6.4-8.2)
--- NOTE | 2018-02-17 10:34 | PN ---
Progress Note, Physician History of Present Illness: seen and examined today in nad. feeling tired but no new complaints. no overnight events. - Current Medication List Current Medications: Active Medications Acetaminophen (Tylenol -) 650 mg PO Q4H PRN PRN Reason: PAIN OR FEVER Aspirin (Asa -) 81 mg PO DAILY [facility] Last Admin: 02/17/18 09:08 Dose: 81 mg Atorvastatin Calcium (Lipitor -) 20 mg PO HS [facility] Last Admin: 02/16/18 21:01 Dose: 20 mg Escitalopram Oxalate (Lexapro -) 10 mg PO DAILY [facility] Last Admin: 02/17/18 09:09 Dose: 10 mg Heparin Sodium (Porcine) (Heparin -) 1,000 unit IVPUSH PRN PRN PRN Reason: Heparin Last Admin: 02/14/18 22:38 Dose: 1,000 unit Heparin Sodium (Porcine) (Heparin -) 5,000 unit IVPUSH PRN PRN PRN Reason: Heparin Last Admin: 02/15/18 09:12 Dose: 5,000 unit Heparin Sodium/Dextrose (Heparin Infusion -) 25,000 units in 500 mls @ 20 mls/ hr IVPB TITR [facility]; Protocol Last Admin: 02/16/18 18:27 Dose: 1,100 units/hr, 22 mls/hr Insulin Aspart (Novolog Vial Sliding Scale -) 1 vial SQ TIDAC [facility]; Protocol Last Admin: 02/17/18 06:37 Dose: Not Given Melatonin (Melatonin) 5 mg PO HS PRN PRN Reason: INSOMNIA Last Admin: 02/16/18 21:01 Dose: 5 mg Metoprolol Tartrate (Lopressor -) 25 mg PO BID [facility] Last Admin: 02/17/18 09:09 Dose: 25 mg Nitroglycerin (Nitrostat -) 0.4 mg SL Q5M PRN PRN Reason: FOR CHEST PAIN Nystatin (Nystop Powder -) 1 applic TP DAILY [facility] Last Admin: 02/17/18 09:09 Dose: 1 applic Ondansetron HCl (Zofran Injection) 4 mg IVPUSH Q6H PRN PRN Reason: NAUSEA Last Admin: 02/14/18 23:01 Dose: 4 mg Sitagliptin Phosphate (Januvia -) 50 mg PO DAILY@0700 [facility] Last Admin: 02/17/18 06:41 Dose: 50 mg - Objective Vital Signs: Vital Signs Temperature 98 F 0821/18 09:00 Pulse Rate 74 02/17/18 09:00 Respiratory Rate 20 02/17/18 09:00 Blood Pressure 133/74 02/17/18 09:00 O2 Sat by Pulse Oximetry (%) 96 02/17/18 09:00 Constitutional: Yes: No Distress, Calm Eyes: Yes: Conjunctiva Clear, EOM Intact HENT: Yes: Atraumatic, Normocephalic Cardiovascular: Yes: Pulse Irregular, Murmur, S1, S2. No: Regular Rate and Rhythm, Bradycardia, Tachycardia, Bruit, JVD, Gallop, Rub, S3, S4, Varicosities Respiratory: Yes: Regular, Diminished. No: Rales, Rhonchi, SOB, Wheezes Gastrointestinal: Yes: Normal Bowel Sounds, Soft. No: Distention, Tenderness Edema: No Peripheral Pulses WNL: Yes Peripheral Pulses: Left Doralis Pedis: 2+, Right Dorsalis Pedis: 2+ Neurological: Yes: Alert, Oriented Psychiatric: Yes: Alert, Oriented Labs: CBC, BMP 02/17/18 05:30 02/17/18 10:00 INR, PTT INR 1.16 (0.83-1.09) H 02/10/18 16:00 - ....Imaging Chest X-ray: Report Reviewed, Image Reviewed EKG: Report Reviewed, Image Reviewed Other: Report Reviewed, Image Reviewed (tele-AF, HR addeq) Assessment/Plan AFIB cont Metoprolol TARTRATE 25 mg PO Q12 hour Continue ASA 81 mg daily cont heparin gtt in preparation for possible cardiac cath Elevated Trops Ischemia (type 2 SD) Trended down, no further chest pain Echocardiogram showed New anterior and apical WMA as compared with 2014 and mod to sev MR. -pt off antibiotics -did not have a chemistry panel since 02/14 to re eval creatinine so was ordered , bun still elevated but trended down, creatinine wnl -if optimized from a renal standpoint could be transferred today for cardiac cath
--- NOTE | 2018-02-17 14:30 | PN ---
Progress Note, Physician History of Present Illness: Pt seen and examined at bedside. She is awake and appears comfortable. She is pending transfer to [facility] for cath. - Current Medication List Current Medications: Active Medications Acetaminophen (Tylenol -) 650 mg PO Q4H PRN PRN Reason: PAIN OR FEVER Aspirin (Asa -) 81 mg PO DAILY [facility] Last Admin: 02/17/18 09:08 Dose: 81 mg Atorvastatin Calcium (Lipitor -) 20 mg PO HS [facility] Last Admin: 02/16/18 21:01 Dose: 20 mg Escitalopram Oxalate (Lexapro -) 10 mg PO DAILY [facility] Last Admin: 02/17/18 09:09 Dose: 10 mg Heparin Sodium (Porcine) (Heparin -) 1,000 unit IVPUSH PRN PRN PRN Reason: Heparin Last Admin: 02/14/18 22:38 Dose: 1,000 unit Heparin Sodium (Porcine) (Heparin -) 5,000 unit IVPUSH PRN PRN PRN Reason: Heparin Last Admin: 02/15/18 09:12 Dose: 5,000 unit Heparin Sodium/Dextrose (Heparin Infusion -) 25,000 units in 500 mls @ 20 mls/ hr IVPB TITR [facility]; Protocol Last Admin: 02/16/18 18:27 Dose: 1,100 units/hr, 22 mls/hr Insulin Aspart (Novolog Vial Sliding Scale -) 1 vial SQ TIDAC [facility]; Protocol Last Admin: 02/17/18 11:12 Dose: Not Given Melatonin (Melatonin) 5 mg PO HS PRN PRN Reason: INSOMNIA Last Admin: 02/16/18 21:01 Dose: 5 mg Metoprolol Tartrate (Lopressor -) 25 mg PO BID [facility] Last Admin: 02/17/18 09:09 Dose: 25 mg Nitroglycerin (Nitrostat -) 0.4 mg SL Q5M PRN PRN Reason: FOR CHEST PAIN Nystatin (Nystop Powder -) 1 applic TP DAILY [facility] Last Admin: 02/17/18 09:09 Dose: 1 applic Ondansetron HCl (Zofran Injection) 4 mg IVPUSH Q6H PRN PRN Reason: NAUSEA Last Admin: 02/14/18 23:01 Dose: 4 mg Sitagliptin Phosphate (Januvia -) 50 mg PO DAILY@0700 [facility] Last Admin: 02/17/18 06:41 Dose: 50 mg - Objective Vital Signs: Vital Signs Temperature 98 F 02/17/18 09:00 Pulse Rate 74 02/17/18 09:00 Respiratory Rate 20 02/17/18 09:00 Blood Pressure 133/74 02/17/18 09:00 O2 Sat by Pulse Oximetry (%) 96 02/17/18 09:00 Constitutional: Yes: Calm Eyes: Yes: Conjunctiva Clear HENT: Yes: Atraumatic Neck: Yes: Supple Cardiovascular: Yes: S1, S2 Respiratory: Yes: On Nasal O2 Gastrointestinal: Yes: Soft Genitourinary: Yes: WNL Musculoskeletal: Yes: Muscle Weakness Edema: No Neurological: Yes: Oriented Psychiatric: Yes: Oriented Labs: CBC, BMP 02/17/18 05:30 02/17/18 10:00 INR, PTT INR 1.13 (0.83-1.09) H 02/17/18 09:45 Problem List - Problems (1) SREE (acute kidney injury) Code(s): N17.9 - ACUTE KIDNEY FAILURE, UNSPECIFIED (2) Atrial fibrillation Code(s): I48.91 - UNSPECIFIED ATRIAL FIBRILLATION Qualifiers: Atrial fibrillation type: chronic Qualified Code(s): I48.2 - Chronic atrial fibrillation (3) Mitral regurgitation Code(s): I34.0 - NONRHEUMATIC MITRAL (VALVE) INSUFFICIENCY (4) Sepsis Code(s): A41.9 - SEPSIS, UNSPECIFIED ORGANISM (5) UTI (urinary tract infection) Code(s): N39.0 - URINARY TRACT INFECTION, SITE NOT SPECIFIED Assessment/Plan Current Medications Generic Name Dose Route Start Last Admin Trade Name Freq PRN Reason Stop Dose Admin Acetaminophen 650 mg 02/11/18 10:04 Tylenol - PO Q4H PRN PAIN OR FEVER Aspirin 81 mg 02/11/18 10:00 02/17/18 09:08 Asa - PO 81 mg DAILY [facility] Administration Atorvastatin Calcium 20 mg 02/11/18 22:00 02/16/18 21:01 Lipitor - PO 20 mg HS [facility] Administration Escitalopram Oxalate 10 mg 02/11/18 12:00 02/17/18 09:09 Lexapro - PO 10 mg DAILY [facility] Administration Heparin Sodium (Porcine) 1,000 unit 02/14/18 17:28 02/14/18 22:38 Heparin - IVPUSH 1,000 unit PRN PRN Administration Heparin Heparin Sodium (Porcine) 5,000 unit 02/14/18 17:28 02/15/18 09:12 Heparin - IVPUSH 5,000 unit PRN PRN Administration Heparin Heparin Sodium/Dextrose 25,000 units in 500 mls @ 20 mls/hr 02/14/18 17:30 18:27 Heparin Infusion - IVPB 1,100 units/hr TITR [facility] 22 mls/hr Administration Protocol 1,000 UNITS/HR Insulin Aspart 1 vial 02/11/18 16:30 02/17/18 11:12 Novolog Vial Sliding Scale - SQ Not Given TIDAC [facility] Protocol Melatonin 5 mg 02/13/18 22:29 02/16/18 21:01 Melatonin PO 5 mg HS PRN Administration INSOMNIA Metoprolol Tartrate 25 mg 02/14/18 22:00 02/17/18 09:09 Lopressor - PO 25 mg BID [facility] Administration Nitroglycerin 0.4 mg 02/11/18 10:03 Nitrostat - SL Q5M PRN FOR CHEST PAIN Nystatin 1 applic 02/11/18 14:00 02/17/18 09:09 Nystop Powder - TP 1 applic DAILY [facility] Administration Ondansetron HCl 4 mg 02/10/18 20:29 02/14/18 23:01 Zofran Injection IVPUSH 4 mg Q6H PRN Administration NAUSEA Sitagliptin Phosphate 50 mg 02/11/18 12:00 02/17/18 06:41 Januvia - PO 50 mg DAILY@0700 [facility] Administration Laboratory Tests 02/17/18 10:00 BUN 28 H Creatinine 0.9 Impression 1. SREE 2. UTI 3. sepsis 4. lymphoma 5. a-fib 6. htn 7. 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
[2018-02-17] MEDS: HEPARIN INFUSION - 25,000 UNITS/500 ML INFUS.BAG IVPB SCH (17:08)
[2018-02-17] MEDS ORDERED: ACETYLCYSTEINE 20% 200MG/ML 30 ML VIAL *FOR ORAL / INH USE ONLY PO SCH (20:00)
[2018-02-17] MEDS ORDERED: SODIUM CHLORIDE 1,000 ML IV SCH (22:00)
[2018-02-17] MEDS: ATORVASTATIN CA 20 MG TABLET (FP) PO SCH (22:02)
[2018-02-17] MEDS: MELATONIN 5 MG TABLETS PO PRN (22:02)
[2018-02-18] MEDS: METOPROLOL TARTRATE 25 MG TABLET (FP) PO SCH ×2 (05:58→10:01)
[2018-02-18] MEDS: ACETYLCYSTEINE 20% 200MG/ML 4 ML VIAL *FOR ORAL / INH USE ONLY PO SCH ×2 (05:59→07:18)
[2018-02-18] MEDS: ASPIRIN 81 MG CHEWABLE TABLETS PO SCH ×2 (06:00→10:00)
[2018-02-18] MEDS: INSULIN SLIDING SCALE (NOVOLOG) 1 VIAL SQ SCH (06:21)
[2018-02-18] MEDS: sitaGLIPtin PHOSPHATE 50 MG TABLET PO SCH (06:21)
[2018-02-18 07:01] LABS: HEMATOCRIT 40.5 % (32.4-45.2); HEMOGLOBIN 13.2 GM/dL (10.7-15.3); MCH 31.5 pg (25.7-33.7); MCHC 32.6 g/dl (32.0-36.0); MEAN CELL VOLUME 96.6 fl (80-96); MEAN PLT VOLUME 8.3 fl (7.5-11.1); PLATELET COUNT 251 K/MM3 (134-434); RBC 4.19 M/mm3 (3.60-5.2); RDW 14.5 % (11.6-15.6); WHITE BLOOD COUNT 9.4 K/mm3 (4.0-10.0)
[2018-02-18 07:32] LABS: ANION GAP 8 MMOL/L (8-16); BLOOD UREA NITROGEN 23 mg/dL (7-18); CALCIUM 9.1 mg/dL (8.5-10.1); CHLORIDE 100 mmol/L (98-107); CO2 33 mmol/L (21-32); CREATININE 0.8 mg/dL (0.55-1.02); GLUCOSE,RANDOM 115 mg/dL (74-106); POTASSIUM 4.6 mmol/L (3.5-5.1); SODIUM 141 mmol/L (136-145)
--- NOTE | 2018-02-18 09:17 | DS ---
Physical Examination Vital Signs: Vital Signs Temperature 98.2 F 02/18/18 05:00 Pulse Rate 71 02/18/18 05:00 Respiratory Rate 17 02/18/18 05:00 Blood Pressure 143/77 02/18/18 05:00 O2 Sat by Pulse Oximetry (%) 95 02/17/18 21:00 Findings/Remarks: no cp awaiting transfer Cardiovascular: Yes: Regular Rate and Rhythm Respiratory: Yes: Regular, CTA Bilaterally Gastrointestinal: Yes: Normal Bowel Sounds, Soft Labs: CBC, BMP 02/18/18 06:30 02/18/18 06:30 Discharge Summary Reason For Visit: ELEVATED TROPONIN I LEVEL,ATRIAL FIBRILATION, Current Active Problems SREE (acute kidney injury) (Acute) Atrial fibrillation (Acute) Demand ischemia (Acute) Elevated troponin I level (Acute) Mitral regurgitation (Acute) Pulmonary hypertension (Acute) Sepsis (Acute) UTI (urinary tract infection) (Acute) Hospital Course: - Problems (1) UTI (urinary tract infection) Assessment/Plan: -UA shows +2 blood -UC Microbiology 02/10/18 18:42 Urine Culture - Final Urine - Urine Clean Catch Escherichia Coli 02/11/18 17:30 VRE Culture - Preliminary Rectal Swab NO VREF ISOLATED 02/10/18 16:00 Blood Culture - Preliminary Blood - Peripheral Venous NO GROWTH OBTAINED AFTER 48 HOURS, INCUBATION TO CONTINUE FOR 3 DAYS. 02/10/18 16:00 Blood Culture - Preliminary Blood - Peripheral Venous NO GROWTH OBTAINED AFTER 48 HOURS, INCUBATION TO CONTINUE FOR 3 DAYS. -No Urinary symptoms -afebrile today -Seen by ID -On IV Rocephin 2 gm IVPB daily--Off abx Code(s): N39.0 - URINARY TRACT INFECTION, SITE NOT SPECIFIED (2) Atrial fibrillation Assessment/Plan: -Chronic -Controlled at this time -Had HASMUKH upon admission -tele monitoring -Xarelto 20 mg po daily -Cardiology consult Code(s): I48.91 - UNSPECIFIED ATRIAL FIBRILLATION Qualifiers: Atrial fibrillation type: chronic Qualified Code(s): I48.2 - Chronic atrial fibrillation (3) Diabetes Assessment/Plan: -A1C at 7.0 -On Januvia -BGM ACHS -Novolog sliding scale TID AC -low sodium diabetic diet Code(s): E11.9 - TYPE 2 DIABETES MELLITUS WITHOUT COMPLICATIONS Qualifiers: Diabetes mellitus type: type 2 (4) Lymphoma Assessment/Plan: -in remission Code(s): C85.90 - NON-HODGKIN LYMPHOMA, UNSPECIFIED, UNSPECIFIED SITE (5) Nausea and vomiting Assessment/Plan: -resolved -On low sodium diabetic diet Code(s): R11.2 - NAUSEA WITH VOMITING, UNSPECIFIED Qualifiers: Vomiting type: unspecified Vomiting Intractability: non-intractable Qualified Code(s): R11.2 - Nausea with vomiting, unspecified (6) Elevated troponin I level Assessment/Plan: -Cardiology on Board -Echo done, results reviewed -troponin trending down =Cath discussed with pt --she agrees--for transfer to [facility] Code(s): R74.8 - ABNORMAL LEVELS OF OTHER SERUM ENZYMES Condition: Improved - Instructions Referrals: Ila Garcia MD [Primary Care Provider] - 2 Weeks Disposition: TRANSFER ACUTE CARE/OTHER HOSP - Home Medications Comprehensive Discharge Medication List: Ambulatory Orders Acetaminophen [Tylenol .Regular Strength -] 650 mg PO Q4H PRN tablet 02/17/18 Albuterol 2.5/Ipratropium 0.5 [Duoneb -] 1 amp NEB Q4H PRN amp 02/17/18 Aspirin [ASA -] 81 mg PO DAILY tab.chew 02/17/18 Atorvastatin Ca [Lipitor] 20 mg PO HS tablet 02/17/18 Escitalopram Oxalate [Lexapro -] 10 mg PO DAILY tablet 02/17/18 Heparin - 5,000 unit IVPUSH PRN PRN vial 02/17/18 Insulin Sliding Scale [Novolog Vial Sliding Scale -] 1 vial SQ TIDAC units Melatonin 5 mg PO HS PRN tab 02/17/18 Metoprolol Tartrate [Lopressor -] 25 mg PO BID tablet 02/17/18 Nitroglycerin Sublingual [Nitrostat -] 0.4 mg SL Q5M PRN tab 02/17/18 Nystatin Powder [Nystop Powder -] 1 applic TP DAILY applic 02/17/18 Sitagliptin Phosphate [Januvia -] 50 mg PO DAILY@0700 tablet 02/17/18
[2018-02-18] MEDS: NYSTATIN POWDER 100,000 UNITS/GM - 15 GM TOPICAL POWDER TP SCH (10:02)
[2018-02-18] MEDS: ESCITALOPRAM OXALATE 10 MG TABLET (FP) PO SCH (10:04)
--- NOTE | 2018-02-18 10:29 | PN ---
Progress Note, Physician History of Present Illness: Pt seen and examined at bedside. She is awake and alert. She is going for cath today. - Current Medication List Current Medications: Active Medications Acetaminophen (Tylenol -) 650 mg PO Q4H PRN PRN Reason: PAIN OR FEVER Acetylcysteine (Mucomyst 20 Oral / Inh Use Only*) 600 mg PO RBID [facility] Last Admin: 02/18/18 07:18 Dose: Not Given Aspirin (Asa -) 81 mg PO DAILY [facility] Last Admin: 02/18/18 10:00 Dose: Not Given Atorvastatin Calcium (Lipitor -) 20 mg PO HS [facility] Last Admin: 02/17/18 22:02 Dose: 20 mg Escitalopram Oxalate (Lexapro -) 10 mg PO DAILY [facility] Last Admin: 02/18/18 10:04 Dose: 10 mg Heparin Sodium (Porcine) (Heparin -) 1,000 unit IVPUSH PRN PRN PRN Reason: Heparin Last Admin: 02/14/18 22:38 Dose: 1,000 unit Heparin Sodium (Porcine) (Heparin -) 5,000 unit IVPUSH PRN PRN PRN Reason: Heparin Last Admin: 02/15/18 09:12 Dose: 5,000 unit Heparin Sodium/Dextrose (Heparin Infusion -) 25,000 units in 500 mls @ 20 mls/ hr IVPB TITR [facility]; Protocol Last Admin: 02/17/18 17:08 Dose: 1,100 units/hr, 22 mls/hr Sodium Chloride (Normal Saline -) 1,000 mls @ 42 mls/hr IV ASDIR [facility] Last Admin: 02/17/18 22:03 Dose: 42 mls/hr Insulin Aspart (Novolog Vial Sliding Scale -) 1 vial SQ TIDAC [facility]; Protocol Last Admin: 02/18/18 06:21 Dose: Not Given Melatonin (Melatonin) 5 mg PO HS PRN PRN Reason: INSOMNIA Last Admin: 02/17/18 22:02 Dose: 5 mg Metoprolol Tartrate (Lopressor -) 25 mg PO BID [facility] Last Admin: 02/18/18 10:01 Dose: Not Given Nitroglycerin (Nitrostat -) 0.4 mg SL Q5M PRN PRN Reason: FOR CHEST PAIN Nystatin (Nystop Powder -) 1 applic TP DAILY [facility] Last Admin: 02/18/18 10:02 Dose: 1 applic Ondansetron HCl (Zofran Injection) 4 mg IVPUSH Q6H PRN PRN Reason: NAUSEA Last Admin: 02/14/18 23:01 Dose: 4 mg Sitagliptin Phosphate (Januvia -) 50 mg PO DAILY@0700 [facility] Last Admin: 02/18/18 06:21 Dose: Not Given - Objective Vital Signs: Vital Signs Temperature 98.2 F 02/18/18 05:00 Pulse Rate 71 02/18/18 05:00 Respiratory Rate 17 02/18/18 05:00 Blood Pressure 143/77 02/18/18 05:00 O2 Sat by Pulse Oximetry (%) 95 02/17/18 21:00 Constitutional: Yes: Calm Eyes: Yes: Conjunctiva Clear HENT: Yes: Atraumatic Neck: Yes: Supple Cardiovascular: Yes: S1, S2 Respiratory: Yes: CTA Bilaterally, On Nasal O2 Gastrointestinal: Yes: Soft, Abdomen, Obese Genitourinary: Yes: WNL Musculoskeletal: Yes: WNL Edema: No Neurological: Yes: Oriented Psychiatric: Yes: Oriented Labs: CBC, BMP 02/18/18 06:30 02/18/18 06:30 INR, PTT INR 1.13 (0.83-1.09) H 02/17/18 09:45 Problem List - Problems (1) SREE (acute kidney injury) Code(s): N17.9 - ACUTE KIDNEY FAILURE, UNSPECIFIED (2) Atrial fibrillation Code(s): I48.91 - UNSPECIFIED ATRIAL FIBRILLATION Qualifiers: Atrial fibrillation type: chronic Qualified Code(s): I48.2 - Chronic atrial fibrillation (3) Mitral regurgitation Code(s): I34.0 - NONRHEUMATIC MITRAL (VALVE) INSUFFICIENCY (4) Sepsis Code(s): A41.9 - SEPSIS, UNSPECIFIED ORGANISM (5) UTI (urinary tract infection) Code(s): N39.0 - URINARY TRACT INFECTION, SITE NOT SPECIFIED Assessment/Plan Current Medications Generic Name Dose Route Start Last Admin Trade Name Freq PRN Reason Stop Dose Admin Acetaminophen 650 mg 02/11/18 10:04 Tylenol - PO Q4H PRN PAIN OR FEVER Acetylcysteine 600 mg 02/18/18 05:51 02/18/18 07:18 Mucomyst 20 Oral / Inh Use Only* PO Not Given RBID [facility] Aspirin 81 mg 02/11/18 10:00 02/18/18 10:00 Asa - PO Not Given DAILY [facility] Atorvastatin Calcium 20 mg 02/11/18 22:00 02/17/18 22:02 Lipitor - PO 20 mg HS [facility] Administration Escitalopram Oxalate 10 mg 02/11/18 12:00 02/18/18 10:04 Lexapro - PO 10 mg DAILY [facility] Administration Heparin Sodium (Porcine) 1,000 unit 02/14/18 17:28 02/14/18 22:38 Heparin - IVPUSH 1,000 unit PRN PRN Administration Heparin Heparin Sodium (Porcine) 5,000 unit 02/14/18 17:28 02/15/18 09:12 Heparin - IVPUSH 5,000 unit PRN PRN Administration Heparin Heparin Sodium/Dextrose 25,000 units in 500 mls @ 20 mls/hr 02/14/18 17:30 17:08 Heparin Infusion - IVPB 1,100 units/hr TITR [facility] 22 mls/hr Administration Protocol 1,000 UNITS/HR Sodium Chloride 1,000 mls @ 42 mls/hr 02/17/18 22:00 02/17/18 22:03 Normal Saline - IV 42 mls/hr ASDIR [facility] Administration Insulin Aspart 1 vial 02/11/18 16:30 02/18/18 06:21 Novolog Vial Sliding Scale - SQ Not Given TIDAC [facility] Protocol Melatonin 5 mg 02/13/18 22:29 02/17/18 22:02 Melatonin PO 5 mg HS PRN Administration INSOMNIA Metoprolol Tartrate 25 mg 02/14/18 22:00 02/18/18 10:01 Lopressor - PO Not Given BID [facility] Nitroglycerin 0.4 mg 02/11/18 10:03 Nitrostat - SL Q5M PRN FOR CHEST PAIN Nystatin 1 applic 02/11/18 14:00 02/18/18 10:02 Nystop Powder - TP 1 applic DAILY [facility] Administration Ondansetron HCl 4 mg 02/10/18 20:29 02/14/18 23:01 Zofran Injection IVPUSH 4 mg Q6H PRN Administration NAUSEA Sitagliptin Phosphate 50 mg 02/11/18 12:00 02/18/18 06:21 Januvia - PO Not Given DAILY@0700 [facility] Impression 1. SREE 2. UTI 3. sepsis 4. lymphoma 5. a-fib 6. htn 7. CAD Plan - renal function stabilized - pt did get fluids overnight - pt did get mucomyst - pt for cath today - check air pollution specialist 48 hrs after contrast - discussed plan with pt Dr Wiggins
[2018-02-18 10:45] VITALS: BP 146/75; PULSE 74; TEMP 98
--- NOTE | 2018-02-18 16:48 | PN ---
Progress Note (short form) - Note Progress Note: pt transferred to [facility] for cardiac cath today 02/18/18 showed minimal luminal irregularities, no sig obst CAD, no PCI performed.
== END 2018-02-18 11:08 | disposition short-term general hospital (02) | DRG 280 ==
LOC: JER 15:11 → JERBED 19:40 → J4W 02-11 01:54
PROVIDERS: ADMIT Internal Medicine; ATTEND Family Medicine
DX: I21.A1 Myocardial infarction type 2 (principal); A41.9 Sepsis, unspecified organism; A41.89 Other specified sepsis; N39.0 Urinary tract infection, site not specified; E87.2 Acidosis; N17.9 Acute kidney failure, unspecified; C85.90 Non-Hodgkin lymphoma, unspecified, unspecified site; I42.9 Cardiomyopathy, unspecified; I10 Essential (primary) hypertension; E78.5 Hyperlipidemia, unspecified; I48.2 Chronic atrial fibrillation; R11.2 Nausea with vomiting, unspecified; B96.20 Unspecified Escherichia coli [E. coli] as the cause of diseases classified elsewhere; R74.8 Abnormal levels of other serum enzymes; I27.20 Pulmonary hypertension, unspecified; I08.0 Rheumatic disorders of both mitral and aortic valves; R50.9 Fever, unspecified; D72.829 Elevated white blood cell count, unspecified; Z96.652 Presence of left artificial knee joint
CPT/HCPCS: 36415; 71045-TC-FY; 76775-TC; 80048; 80053; 80061; 80162; 81003; 81015; 82550; 82553; 82962; 83036; 83605; 83690; 83721; 83735; 83880; 84100; 84484; 85025; 85027; 85610; 85730; 87040; 87081; 87086; 87186; 93005; 93010; 93306-TC; 94640; 97116-GP; 97162-GP; 99285-25; G0480; J0131; J1644; J7030; J7620

== ENCOUNTER 2019-02-03 08:56 | Day surgery (SDC) | payer OTHER ==
[2019-02-02 10:08] VITALS: BMI 37.5
[~2019-02-03 08:56] MED LIST: ACETAMINOPHEN 325 MG TABLET (FP) PO PRN; BSS (NA/CA/MG/K) BALANCED SALT SOLUTION OPHTH SOLN 15 ML BOTTLE OS ONE; PHENYLEPHRINE/KETOROLAC 4 ML VIAL IO ONE
[2019-02-03] MEDS ORDERED: OFLOXACIN 0.3% OPHTHALMIC SOLUTION 5 ML BOTTLE ONE (09:32)
[2019-02-03] MEDS ORDERED: CYCLOPENTOLATE HCL 1% OPHTH SOLN 2 ML BOTTLE ONE (09:32)
[2019-02-03] MEDS ORDERED: PHENYLEPHRINE 2.5% OPHTH SOLN 15 ML BOTTLE ONE (09:33)
[2019-02-03] MEDS ORDERED: KETOROLAC TROMETHAMINE 0.5% EYE DROP 1 DROP DROPS ONE (09:33)
[2019-02-03] MEDS ORDERED: TROPICAMIDE 1% OPHTH SOLN 15 ML BOTTLE ONE (09:33)
[2019-02-03 09:50] VITALS: TEMP 98.2
[2019-02-03] MEDS: OFLOXACIN 0.3% OPHTHALMIC SOLUTION 5 ML BOTTLE OP SCH ×3 (11:00→11:10)
[2019-02-03] MEDS: KETOROLAC TROMETHAMINE 0.5% EYE DROP 1 DROP DROPS OP SCH ×3 (11:00→11:10)
[2019-02-03] MEDS: TROPICAMIDE 1% OPHTH SOLN 15 ML BOTTLE OP SCH ×3 (11:00→11:10)
[2019-02-03] MEDS: PHENYLEPHRINE 2.5% OPHTH SOLN 15 ML BOTTLE OP SCH ×3 (11:00→11:10)
[2019-02-03] MEDS: CYCLOPENTOLATE HCL 1% OPHTH SOLN 2 ML BOTTLE OP SCH ×3 (11:00→11:10)
[2019-02-03] MEDS ORDERED: TETRACAINE 0.5% OPHTH SOLN 2 ML BOTTLE OS ONE (11:54)
[2019-02-03] MEDS ORDERED: MIDAZOLAM HCL 2 MG/2 ML SINGLE DOSE VIAL ONE (11:56)
[2019-02-03] MEDS ORDERED: POVIDONE-IODINE 5% OPHTHALMIC PREP 30 ML SOLUTION OS ONE (11:58)
[2019-02-03] MEDS ORDERED: LIDOCAINE HCL 1% PRESERVATIVE FREE - 30ML VIAL IO ONE ×2 (12:05)
[2019-02-03] MEDS ORDERED: CHONDROITIN SU A/HYALUR SOD 1 KIT IO ONE (12:05)
[2019-02-03] MEDS ORDERED: BSS (NA/CA/MG/K) BALANCED SALT SOLUTION OPHTH SOLN 15 ML BOTTLE OS ONE (12:05)
[2019-02-03] MEDS ORDERED: PHENYLEPHRINE/KETOROLAC 4 ML VIAL IO ONE (12:11)
[2019-02-03 13:50] VITALS: BP 123/61; PULSE 76
--- NOTE | 2019-02-03 14:06 | SPEC ---
DATE OF OPERATION: PREOPERATIVE DIAGNOSIS: Cataract, left eye. POSTOPERATIVE DIAGNOSIS: Cataract, left eye. PROCEDURE: Phacoemulsification of left cataract with posterior chamber intraocular lens implantation. Lens used [id number], 19.5 diopter power, serial No. [id number]. SURGEON: Yobany Lee M.D. ANESTHESIA: Topical MAC. COMPLICATIONS: None. DESCRIPTION OF PROCEDURE: The patient was brought to the operating room and correctly identified along with the operative site and the correct intraocular lens ortiz. The patient was then prepped and draped in the usual sterile fashion including 5% Betadine solution in the conjunctival sac and an eyelid drape. An eyelid speculum was then placed in the eye. A paracentesis port was created and approximately 0.5 mL of preservative free Lidocaine was then injected into the eye. Viscoelastic was then injected to inflate the anterior chamber. A temporal clear corneal wound was created. A continuous circular capsulorrhexis was performed. The nucleus was then hydrodissected with BSS and removed with phacoemulsification. The remaining cortical material was irrigated and aspirated. Viscoelastic was injected to inflate the capsular bag and the intraocular lens was then implanted into the capsular bag. The remaining Viscoelastic was irrigated and aspirated from the eye. The IOL was noted to be well centered and completely covered by the anterior capsulorrhexis. Topical vancomycin was placed and the eye patched and shielded. All wounds were tested and found to be watertight. No suture was placed. The eye was then shielded. The patient was then discharged from the operating room in stable condition. Diego DEAN/[id number]
== END 2019-02-03 13:25 | disposition home or self-care (01) ==
LOC: JASU-SURG 08:56
PROVIDERS: ATTEND Ophthalmology
PROC: 08RK3JZ Replacement of Left Lens with Synthetic Substitute, Percutaneous Approach (ICD-10-PCS; principal; 2019-02-03 11:00)
DX: H26.9 Unspecified cataract (principal)
CPT/HCPCS: 82962; C9447

== ENCOUNTER 2020-12-10 20:55 | Inpatient (IN) | payer OTHER ==
[2020-12-10] MEDS ORDERED: SODIUM CHLORIDE 1,000 ML IV STA (21:13)
[2020-12-10 21:43] LABS: INR 1.27 (0.83-1.09); PROTHROMBIN TIME (PATIENT) 15.5 SEC (9.7-13.0)
[2020-12-10 21:46] LABS: ACTIVATED PTT 32.8 SECONDS (25.2-36.5)
[2020-12-10] MEDS ORDERED: CARVEDILOL 12.5 MG TABLET (FP) PO ONE (21:48)
[2020-12-10 21:50] LABS: EOS % 0.1 % (0-4.5); HEMATOCRIT 40.7 % (32.4-45.2); HEMOGLOBIN 13.4 GM/dL (10.7-15.3); LYMPH % 8.8 % (8-40); MCH 32.4 pg (25.7-33.7); MEAN CELL VOLUME 98.2 fl (80-96); MEAN PLT VOLUME 8.2 fl (7.5-11.1); MONO % 7.4 % (3.8-10.2); NEUT % 82.7 % (42.8-82.8); PLATELET COUNT 238 K/MM3 (134-434); RBC 4.15 M/mm3 (3.60-5.2); WHITE BLOOD COUNT 15.3 K/mm3 (4.0-10.0)
[2020-12-10 21:56] LABS: CHLORIDE 100 mmol/L (98-107); SODIUM 137 mmol/L (136-145)
[2020-12-10 21:58] LABS: ALBUMIN 3.5 g/dl (3.4-5.0); CALCIUM 9.5 mg/dL (8.5-10.1)
[2020-12-10 21:59] LABS: ANION GAP 7 MMOL/L (8-16); BLOOD UREA NITROGEN 16.3 mg/dL (7-18); CO2 30 mmol/L (21-32); GLUCOSE,RANDOM 181 mg/dL (74-106); LIPASE 30 U/L (73-393)
[2020-12-10] MEDS ORDERED: FUROSEMIDE 40 MG/4 ML INJECTABLE VIAL IVPUSH ONE (22:00)
[2020-12-10 22:01] LABS: SGOT/AST 29 U/L (15-37); SGPT/ALT 18 U/L (13-61)
[2020-12-10] MEDS ORDERED: PIPERACILLIN/TAZOB 3.375 GM 3.375 GM in DEXTROSE 5%-WATER - 50 ML IVPB ONE (22:01)
[2020-12-10] MEDS ORDERED: CARVEDILOL 12.5 MG TABLET (FP) ONE (22:01)
[2020-12-10 22:02] LABS: PHOSPHOROUS 3.3 mg/dL (2.5-4.9)
[2020-12-10 22:03] LABS: BILIRUBIN,TOTAL 1.4 mg/dL (0.2-1); TOT PROT 7.8 g/dl (6.4-8.2)
[2020-12-10 22:04] LABS: ALK PHOS 63 U/L (45-117)
[2020-12-10 22:05] LABS: N-TERMINAL BNP 6696.8 pg/ml (5-450)
[2020-12-10] MEDS ORDERED: PIPERACILLIN/TAZOB 3.375 GM 3.375 GM/50 ML BAG IVPB ONE (22:05)
[2020-12-10] MEDS ORDERED: FUROSEMIDE 40 MG/4 ML INJECTABLE VIAL ONE (22:05)
[2020-12-10 22:09] LABS: EPI CELLS 17 /uL (0-25.1); HYALINE CASTS 2 /uL (0-3.1); PH,URINE 5.5 (5.0-8.0); URINE APPEARANCE TURBID; URINE BACTERIA 2069 /uL (0-1359); URINE BILIRUBIN NEGATIVE (NEGATIVE); URINE COLOR YELLOW; URINE GLUCOSE (UA) NEGATIVE (NEGATIVE); URINE KETONE NEGATIVE (NEGATIVE); URINE LEUK ESTERASE 3+ (NEGATIVE); URINE NITRITE POSITIVE (NEGATIVE); URINE PROTEIN 2+ (NEGATIVE); URINE RBC 369 /uL (0-23.9); URINE WBC 5280 /uL (0-25.8)
[2020-12-11 07:19] LABS: HEMATOCRIT 38.2 % (32.4-45.2); HEMOGLOBIN 12.3 GM/dL (10.7-15.3); MCH 32.1 pg (25.7-33.7); MCHC 32.3 g/dl (32.0-36.0); MEAN CELL VOLUME 99.5 fl (80-96); MEAN PLT VOLUME 7.9 fl (7.5-11.1); PLATELET COUNT 218 K/MM3 (134-434); RBC 3.84 M/mm3 (3.60-5.2); WHITE BLOOD COUNT 13.1 K/mm3 (4.0-10.0)
[2020-12-11 07:20] LABS: ALBUMIN 3.2 g/dl (3.4-5.0); BLOOD UREA NITROGEN 18.6 mg/dL (7-18); CALCIUM 9.3 mg/dL (8.5-10.1)
[2020-12-11 07:23] LABS: CREATININE 1.1 mg/dL (0.55-1.3)
[2020-12-11 07:25] LABS: BILIRUBIN,TOTAL 1.1 mg/dL (0.2-1)
[2020-12-11] MEDS: ACETAMINOPHEN 325 MG TABLET (FP) PO PRN ×2 (09:02→20:32)
[2020-12-11] MEDS: TAMSULOSIN HCL 0.4 MG CAP PO SCH (09:03)
[2020-12-11] MEDS ORDERED: CEFTRIAXONE 2 GM in DEXTROSE 5%-WATER 2 GM/100 ML BAG IVPB SCH (10:45)
[2020-12-11] MEDS ORDERED: AZITHROMYCIN IVPB 500 MG/250 ML BAG IVPB SCH (10:45)
[2020-12-11] MEDS ORDERED: DEXTROSE 5%-WATER 100 ML IVPB ONE (11:47)
[2020-12-11] MEDS: INSULIN SLIDING SCALE (NOVOLOG) 1 VIAL SQ SCH ×3 (12:40→21:54)
[2020-12-11] MEDS: ONDANSETRON *ODT* 4 MG TABLET SL PRN (18:05)
[2020-12-11] MEDS: RIVAROXABAN 20 MG TABLET PO SCH (18:05)
[2020-12-11] MEDS ORDERED: FUROSEMIDE 40 MG/4 ML INJECTABLE VIAL IVPUSH ONE (18:38)
[2020-12-11] MEDS ORDERED: methylPREDNISolone NA SUCC 40 MG/1 ML VIAL IVPUSH ONE (19:01)
[2020-12-11] MEDS ORDERED: LORazepam 2 MG/ML SDV VIAL IVPUSH ONE (19:10)
[2020-12-11 19:59] LABS: EPI CELLS 3 /uL (0-25.1); HYALINE CASTS 0 /uL (0-3.1); PH,URINE 5.5 (5.0-8.0); URINE APPEARANCE CLOUDY; URINE BACTERIA 180 /uL (0-1359); URINE BILIRUBIN NEGATIVE (NEGATIVE); URINE COLOR YELLOW; URINE GLUCOSE (UA) NEGATIVE (NEGATIVE); URINE KETONE NEGATIVE (NEGATIVE); URINE LEUK ESTERASE 2+ (NEGATIVE); URINE NITRITE NEGATIVE (NEGATIVE); URINE PROTEIN 1+ (NEGATIVE); URINE RBC 30 /uL (0-23.9); URINE UROBILINOGEN 0.2 mg/dL (0.2-1.0); URINE WBC 458 /uL (0-25.8)
[2020-12-11] MEDS: ATORVASTATIN CA 10 MG TABLET (FP) PO SCH (21:53)
[2020-12-12] MEDS ORDERED: PIPERACILLIN/TAZOB 4.5 GM 4.5 GM in DEXTROSE 5%-WATER 100 ML IVPB SCH (02:14)
[2020-12-12] MEDS ORDERED: DEXTROSE 5%-WATER 100 ML IVPB ONE ×2 (03:12→08:56)
[2020-12-12] MEDS ORDERED: PIPERACILLIN/TAZOBACTAM 4.5 GM VIAL IVPB ONE ×2 (03:12→08:56)
[2020-12-12] MEDS: methylPREDNISolone NA SUCC 40 MG/1 ML VIAL IVPUSH SCH ×3 (03:20→17:47)
[2020-12-12] MEDS: PIPERACILLIN/TAZOB 4.5 GM 4.5 GM in DEXTROSE 5%-WATER 100 ML IVPB SCH ×2 (03:20→09:00)
[2020-12-12 06:50] LABS: CALCIUM 9.5 mg/dL (8.5-10.1)
[2020-12-12 06:51] LABS: BLOOD UREA NITROGEN 27.7 mg/dL (7-18)
[2020-12-12] MEDS: INSULIN SLIDING SCALE (NOVOLOG) 1 VIAL SQ SCH ×5 (06:52→21:58)
[2020-12-12 06:55] LABS: CREATININE 1.2 mg/dL (0.55-1.3)
[2020-12-12] MEDS: TAMSULOSIN HCL 0.4 MG CAP PO SCH (08:57)
[2020-12-12] MEDS ORDERED: PANTOPRAZOLE SODIUM 40 MG VIAL IVPUSH SCH (10:00)
[2020-12-12] MEDS: ACETAMINOPHEN 325 MG TABLET (FP) PO PRN ×2 (10:20→21:43)
[2020-12-12] MEDS: ONDANSETRON *ODT* 4 MG TABLET SL PRN (10:21)
[2020-12-12] MEDS ORDERED: SODIUM CHLORIDE 1,000 ML IV SCH (11:45)
[2020-12-12] MEDS ORDERED: ALBUTEROL SO4 0.083% IH SOL 2.5 MG/3 ML VIAL.NEB. NEB PRN (11:48)
[2020-12-12] MEDS: ALBUTEROL SO4 2.5/IPRATROPIUM 0.5 INH SOL 3 ML VIAL.NEB. NEB SCH ×2 (14:00→20:30)
[2020-12-12] MEDS ORDERED: PIPERACILLIN/TAZOBACTAM 3.375 GM VIAL IVPB ONE (17:45)
[2020-12-12] MEDS ORDERED: DEXTROSE 5%-WATER - 50 ML IVPB ONE (17:45)
[2020-12-12] MEDS: PIPERACILLIN/TAZOB 3.375 GM 3.375 GM in DEXTROSE 5%-WATER - 50 ML IVPB SCH (17:47)
[2020-12-12] MEDS: RIVAROXABAN 20 MG TABLET PO SCH (17:48)
[2020-12-12] MEDS: ATORVASTATIN CA 10 MG TABLET (FP) PO SCH (21:43)
[2020-12-13] MEDS ORDERED: DEXTROSE 5%-WATER - 50 ML IVPB ONE ×3 (01:12→16:52)
[2020-12-13] MEDS ORDERED: PIPERACILLIN/TAZOBACTAM 3.375 GM VIAL IVPB ONE ×3 (01:12→16:52)
[2020-12-13] MEDS: PIPERACILLIN/TAZOB 3.375 GM 3.375 GM in DEXTROSE 5%-WATER - 50 ML IVPB SCH ×3 (01:38→17:06)
[2020-12-13] MEDS: methylPREDNISolone NA SUCC 40 MG/1 ML VIAL IVPUSH SCH ×2 (01:39→09:28)
[2020-12-13] MEDS: INSULIN SLIDING SCALE (NOVOLOG) 1 VIAL SQ SCH ×4 (06:24→21:37)
[2020-12-13 07:00] LABS: ALBUMIN 2.7 g/dl (3.4-5.0)
[2020-12-13 07:04] LABS: BILIRUBIN,TOTAL 0.5 mg/dL (0.2-1); TOT PROT 6.6 g/dl (6.4-8.2)
[2020-12-13] MEDS: ALBUTEROL SO4 2.5/IPRATROPIUM 0.5 INH SOL 3 ML VIAL.NEB. NEB SCH ×2 (08:07→20:12)
[2020-12-13] MEDS ORDERED: PT OWN MED DRAWER 7, Y5N ONE ×2 (09:17→23:06)
[2020-12-13] MEDS: TAMSULOSIN HCL 0.4 MG CAP PO SCH (09:21)
[2020-12-13] MEDS ORDERED: DIGOXIN 0.125 MG TABLET (FP) PO SCH (10:00)
[2020-12-13] MEDS: ACETAMINOPHEN 325 MG TABLET (FP) PO PRN ×3 (11:06→23:02)
[2020-12-13] MEDS ORDERED: ALBUTEROL SO4 0.083% IH SOL 2.5 MG/3 ML VIAL.NEB. NEB PRN (14:15)
[2020-12-13] MEDS: RIVAROXABAN 20 MG TABLET PO SCH (17:06)
[2020-12-13] MEDS: PANTOPRAZOLE 40 MG TABLET PO SCH (17:06)
[2020-12-13] MEDS ORDERED: INSULIN (NOVOLOG) ASPART 100 UNITS/ML 10ML VIAL ONE (21:27)
[2020-12-13] MEDS: MELATONIN 1 MG TABLET PO SCH (21:37)
[2020-12-13] MEDS: ATORVASTATIN CA 10 MG TABLET (FP) PO SCH (21:37)
[2020-12-13] MEDS ORDERED: MELATONIN 1 MG TABLET PO SCH (22:00)
[2020-12-14] MEDS ORDERED: PIPERACILLIN/TAZOBACTAM 3.375 GM VIAL IVPB ONE ×3 (01:54→16:33)
[2020-12-14] MEDS ORDERED: DEXTROSE 5%-WATER - 50 ML IVPB ONE ×3 (01:55→16:33)
[2020-12-14] MEDS: PIPERACILLIN/TAZOB 3.375 GM 3.375 GM in DEXTROSE 5%-WATER - 50 ML IVPB SCH ×3 (01:59→17:07)
[2020-12-14] MEDS: INSULIN SLIDING SCALE (NOVOLOG) 1 VIAL SQ SCH ×4 (06:19→21:28)
[2020-12-14] MEDS: ALBUTEROL SO4 2.5/IPRATROPIUM 0.5 INH SOL 3 ML VIAL.NEB. NEB SCH ×3 (07:25→20:50)
[2020-12-14] MEDS: ONDANSETRON *ODT* 4 MG TABLET SL PRN ×2 (07:42→19:46)
[2020-12-14] MEDS: ACETAMINOPHEN 325 MG TABLET (FP) PO PRN (07:42)
[2020-12-14] MEDS: TAMSULOSIN HCL 0.4 MG CAP PO SCH (07:42)
[2020-12-14] MEDS: PANTOPRAZOLE 20 MG TABLET PO SCH (10:13)
[2020-12-14] MEDS: CARVEDILOL 12.5 MG TABLET (FP) PO SCH ×2 (10:13→21:27)
[2020-12-14] MEDS: PANTOPRAZOLE 40 MG TABLET PO SCH (10:13)
[2020-12-14] MEDS: ALLOPURINOL 100 MG TABLET (FP) PO SCH (10:13)
[2020-12-14] MEDS: DIGOXIN 0.125 MG TABLET (FP) PO SCH (10:14)
[2020-12-14] MEDS ORDERED: ALPRAZolam 0.25 MG TABLET PO ONE (11:00)
[2020-12-14 11:12] LABS: BASO % 0.7 % (0-2.0); HEMATOCRIT 39.3 % (32.4-45.2); HEMOGLOBIN 12.8 GM/dL (10.7-15.3); LYMPH % 6.9 % (8-40); MCH 31.8 pg (25.7-33.7); MCHC 32.5 g/dl (32.0-36.0); MEAN CELL VOLUME 97.9 fl (80-96); MEAN PLT VOLUME 8.1 fl (7.5-11.1); MONO % 8.3 % (3.8-10.2); NEUT % 84.1 % (42.8-82.8); PLATELET COUNT 251 10^3/uL (134-434); RBC 4.02 M/mm3 (3.60-5.2); RDW 14.4 % (11.6-15.6)
[2020-12-14 11:24] LABS: CHLORIDE 97 mmol/L (98-107); SODIUM 136 mmol/L (136-145)
[2020-12-14 11:29] LABS: CALCIUM 9.4 mg/dL (8.5-10.1)
[2020-12-14 11:30] LABS: ANION GAP 5 MMOL/L (8-16); BLOOD UREA NITROGEN 38.2 mg/dL (7-18); CO2 35 mmol/L (21-32); GLUCOSE,RANDOM 184 mg/dL (74-106)
[2020-12-14 11:33] LABS: CREATININE 0.9 mg/dL (0.55-1.3); SGOT/AST 37 U/L (15-37); SGPT/ALT 40 U/L (13-61)
[2020-12-14 11:34] LABS: BILIRUBIN,TOTAL 0.6 mg/dL (0.2-1); TOT PROT 6.9 g/dl (6.4-8.2)
[2020-12-14 11:35] LABS: ALK PHOS 49 U/L (45-117)
[2020-12-14] MEDS: RIVAROXABAN 20 MG TABLET PO SCH (17:08)
[2020-12-14] MEDS: ATORVASTATIN CA 10 MG TABLET (FP) PO SCH (21:27)
[2020-12-14] MEDS: MELATONIN 1 MG TABLET PO SCH (21:27)
[2020-12-15] MEDS ORDERED: DEXTROSE 5%-WATER - 50 ML IVPB ONE ×3 (01:20→17:30)
[2020-12-15] MEDS ORDERED: PIPERACILLIN/TAZOBACTAM 3.375 GM VIAL IVPB ONE ×3 (01:20→17:30)
[2020-12-15] MEDS: PIPERACILLIN/TAZOB 3.375 GM 3.375 GM in DEXTROSE 5%-WATER - 50 ML IVPB SCH ×3 (02:45→17:35)
[2020-12-15] MEDS: INSULIN SLIDING SCALE (NOVOLOG) 1 VIAL SQ SCH ×3 (06:17→17:28)
[2020-12-15] MEDS ORDERED: sitaGLIPtin PHOSPHATE 50 MG TABLET PO SCH (07:00)
[2020-12-15] MEDS: ALBUTEROL SO4 2.5/IPRATROPIUM 0.5 INH SOL 3 ML VIAL.NEB. NEB SCH ×2 (08:16→13:52)
[2020-12-15 08:59] LABS: BASO % 0.3 % (0-2.0); EOS % 0.5 % (0-4.5); HEMATOCRIT 39.4 % (32.4-45.2); HEMOGLOBIN 12.8 GM/dL (10.7-15.3); LYMPH % 15.7 % (8-40); MCH 31.9 pg (25.7-33.7); MCHC 32.4 g/dl (32.0-36.0); MEAN CELL VOLUME 98.2 fl (80-96); MEAN PLT VOLUME 7.7 fl (7.5-11.1); MONO % 14.9 % (3.8-10.2); NEUT % 68.6 % (42.8-82.8); PLATELET COUNT 252 10^3/uL (134-434); RBC 4.01 M/mm3 (3.60-5.2); RDW 14.9 % (11.6-15.6); WHITE BLOOD COUNT 8.1 K/mm3 (4.0-10.0)
[2020-12-15 09:19] LABS: ALBUMIN 2.8 g/dl (3.4-5.0); BLOOD UREA NITROGEN 33.9 mg/dL (7-18); CALCIUM 9.4 mg/dL (8.5-10.1)
[2020-12-15 09:24] LABS: BILIRUBIN,TOTAL 1.2 mg/dL (0.2-1); TOT PROT 6.4 g/dl (6.4-8.2)
[2020-12-15] MEDS: TAMSULOSIN HCL 0.4 MG CAP PO SCH (10:01)
[2020-12-15] MEDS: CARVEDILOL 12.5 MG TABLET (FP) PO SCH (10:01)
[2020-12-15] MEDS: ALLOPURINOL 100 MG TABLET (FP) PO SCH (10:02)
[2020-12-15] MEDS: PANTOPRAZOLE 40 MG TABLET PO SCH (10:02)
[2020-12-15] MEDS: PANTOPRAZOLE 20 MG TABLET PO SCH (10:02)
[2020-12-15] MEDS: DIGOXIN 0.125 MG TABLET (FP) PO SCH (10:06)
[2020-12-15 12:24] VITALS: BMI 27.2
[2020-12-15] MEDS ORDERED: FUROSEMIDE 40 MG TABLET (FP) PO SCH (13:30)
[2020-12-15] MEDS: RIVAROXABAN 20 MG TABLET PO SCH (17:35)
[2020-12-15 18:42] VITALS: BP 149/68; PULSE 81; TEMP 98
== END 2020-12-15 18:55 | DRG 871 ==
LOC: JER 20:55 → JERBED 22:24 → J2W 12-11 03:24 → J5S 12-13 13:48
PROVIDERS: ADMIT Hospitalist; ATTEND Family Medicine
PROC: 02HV33Z Insertion of Infusion Device into Superior Vena Cava, Percutaneous Approach (ICD-10-PCS; principal; 2020-12-15)
PROC: B548ZZA Ultrasonography of Superior Vena Cava, Guidance (ICD-10-PCS; 2020-12-15)
DX: A41.51 Sepsis due to Escherichia coli [E. coli] (principal); J18.9 Pneumonia, unspecified organism; N39.0 Urinary tract infection, site not specified; I50.22 Chronic systolic (congestive) heart failure; N17.9 Acute kidney failure, unspecified; C85.90 Non-Hodgkin lymphoma, unspecified, unspecified site; I48.20 Chronic atrial fibrillation, unspecified; J96.11 Chronic respiratory failure with hypoxia; I48.91 Unspecified atrial fibrillation; Z79.01 Long term (current) use of anticoagulants; I11.0 Hypertensive heart disease with heart failure; G47.33 Obstructive sleep apnea (adult) (pediatric); J44.9 Chronic obstructive pulmonary disease, unspecified; D64.9 Anemia, unspecified; E11.9 Type 2 diabetes mellitus without complications; D72.829 Elevated white blood cell count, unspecified; Z79.84 Long term (current) use of oral hypoglycemic drugs; F32.9 Major depressive disorder, single episode, unspecified; E78.5 Hyperlipidemia, unspecified
CPT/HCPCS: 36415; 36569; 71045-TC-FY; 71046-TC-FY; 76775-TC; 80048; 80053; 80162; 81003; 82550; 82570; 82962; 83690; 83735; 83880; 84100; 84156; 84484; 85025; 85027; 85610; 85730; 86850; 86900; 86901; 87040; 87086; 87186; 87899; 93005; 93010; 94640; 97116-GP; 97161-GP; 99285-25; C9803; Q0162; U0003; U0005